=== PATIENT | female | born 1970 | race African-American/Black ===

== ENCOUNTER 2016-11-30 20:27 | Emergency (ER) | payer MEDICAID ==
[~2016-11-30] VITALS: Ht 160 cm; Wt 136.1 kg
[~2016-11-30 20:27] MED LIST: CIPROFLOXACIN500 M2 ORAL; CYCLOBENZAPRINE10 MG ORAL; IBUPROFEN600 MG ORAL; LISINOPRIL2.5 MG ORAL; NORCO 10/3251 EA ORAL; NORCO 5-325 TA1 EACH ORAL; NOVOLIN 70/305 UNIT1; SOMA350 MG PO; ZOFRAN4 MG ORAL
[2016-11-30] MEDS ORDERED: Ketorolac 60mg Inj IM ONE (21:15)
--- NOTE | 2016-11-30 21:18 | Emergency Room Report ---
History of Present Illness General Chief Complaint: Edema Source: Patient Present Illness HPI Patient is a 46-year-old female who presented after increased right hip pain as well as bilateral leg swelling. Patient had prior history of cardiac disease. Patient had prior history of chronic pain. She had been taking medications for diabetes. The patient stated that she had been having pain since her hip surgery greater than a year ago. She reported having gradual increase pain. Patient had reported bilateral leg swelling. She denied any shortness of breath. Allergies: Coded Allergies: PENICILLINS (Unverified Allergy, Unknown, 12/04/14) Patient History Past Medical History: see triage record Last Menstrual Period: Menopause Now: No Reviewed Nursing Documentation: PMH: Agreed, PSxH: Agreed Nursing Documentation-PMH Past Medical History: No History, Except For Hx Cardiac Problems: Yes Hx Hypertension: Yes Hx Diabetes: Yes Hx Cancer: Yes - cervix Hx Gastrointestinal Problems: Yes - Hysterectomy Hx Neurological Problems: No Review of Systems All Other Systems: negative except mentioned in HPI Physical Exam Vital Signs Date Time Temp Pulse Resp B/P Pulse Ox O2 Delivery O2 Flow Rate FiO2 11/30/16 20:42 98.2 105 16 139/103 99 Room Air General Appearance: well appearing, no apparent distress, alert, GCS 15 Head: normocephalic, atraumatic ENT: hearing grossly normal, normal voice Neck: full range of motion, supple Respiratory: no respiratory distress, speaking full sentences Cardiovascular #1: normal inspection, regular rate, rhythm, edema - trace edema Gastrointestinal: normal inspection, non tender, soft Musculoskeletal: normal inspection, no calf tenderness Neurologic: normal inspection, alert, oriented x3, responsive, normal gait Psychiatric: mood/affect normal Skin: no rash Medical Decision Making Diagnostic Impression: Primary Impression: Chronic pain Additional Impression: DM (diabetes mellitus) ER Course Patient presented for right hip pain. Differential diagnosis included was not limited to osteomyelitis loosening hardware, fracture among others. Patient's benign exam and does not appear to require any further imaging or laboratory testing at this time. The patient is afebrile. As the patient exacerbation of the patient's chronic pain. The patient does appear to have a component of neuropathy. Patient given gabapentin as well as Toradol for pain.The x-ray imaging of the right hip the 2 views interpreted by me showed normal alignment with a cyst of the right femur with hardware. Inferior screw appeared to be broken without displacement. The patient was advised followup with her orthopedic Dr. Patient is advised to return if she began having worsening pain fever or other concerns. Labs Test 11/30/16 21:10 Urine HCG, Qualitative Negative Last Vital Signs Date Time Temp Pulse Resp B/P Pulse Ox O2 Delivery O2 Flow Rate FiO2 11/30/16 20:42 98.2 105 16 139/103 99 Room Air Status: improved Disposition: HOME, SELF-CARE Condition: Stable Scripts Gabapentin* (GABAPENTIN*) 400 Mg Capsule 400 MG ORAL THREE TIMES A DAY, #30 CAP 0 Refills Prov: Luis Mcconnell 11/30/16 Luis Mcconnell Nov 30, 2016 21:18
[2016-11-30 21:30] VITALS: BP 132/96
[2016-11-30] MEDS ORDERED: GABAPENTIN400 MG ORAL (21:33)
[2016-11-30 22:20] VITALS: BP 132/96
--- NOTE | 2016-12-01 13:20 | Diagnostic Imaging Report ---
Indications: hip pain Findings: Two views of the right hip were obtained. There is a right dynamic hip screw present. The inferior most fixation screw is fractured. The acuity of this is unknown. There is no acute bony fracture identified. Impression: Age-indeterminate fracture of the inferior most femoral fixation screw for a dynamic hip screw.
== END 2016-11-30 22:20 | disposition home or self-care (01) ==
LOC: EMR 22:00
DX: G89.29 Other chronic pain (principal); E11.9 Type 2 diabetes mellitus without complications; M25.551 Pain in right hip; M79.89 Other specified soft tissue disorders; Z88.0 Allergy status to penicillin; Z86.79 Personal history of other diseases of the circulatory system; I10 Essential (primary) hypertension; Z85.41 Personal history of malignant neoplasm of cervix uteri; Z90.710 Acquired absence of both cervix and uterus
CPT/HCPCS: 81025; 96372; 99283

== ENCOUNTER 2017-05-18 09:54 | Emergency (ER) | payer MEDICAID ==
[~2017-05-18] VITALS: Ht 160 cm; Wt 90.7 kg
[~2017-05-18 09:54] MED LIST changes: +GABAPENTIN400 MG ORAL
[2017-05-18 10:11] VITALS: BP 162/112
--- NOTE | 2017-05-18 10:43 | Emergency Room Report ---
History of Present Illness General Chief Complaint: General Complaint Source: Patient, Medical Record Present Illness HPI 46-year-old female history of hypertension and diabetes, history of right hip surgery due to fracture, history of thyroidectomy presenting with left-sided hip pain and chest pain. Patient states that pain started yesterday, worse with movement, denies any trauma. Denies any falling. Denies reaching down to grab anything. Pain has been constant, worse with movement. Has not taken anything for the pain. Patient states that she has an orthopedic surgeon who is "not doing anything" for her. She has not seen another orthopedic surgeon. Patient also states that she has had one day of burning substernal chest pain, not worse with exertion. No palpitations. No shortness of breath nausea or vomiting. Has not had a stress test or angiogram. Pain is also worse with movement or twisting motion. No history of DVT PE, no history of recent surgery or immobilization. Allergies: Coded Allergies: PENICILLINS (Unverified Allergy, Unknown, 12/04/14) Patient History Past Medical History: see triage record Past Surgical History: none Pertinent Family History: none Last Menstrual Period: hysterectomy 4 yrs ago Reviewed Nursing Documentation: PMH: Agreed, PSxH: Agreed Nursing Documentation-PMH Past Medical History: No History, Except For Hx Cardiac Problems: Yes Hx Hypertension: Yes Hx Diabetes: Yes Hx Cancer: Yes - cervix Hx Gastrointestinal Problems: Yes - Hysterectomy Hx Neurological Problems: No Review of Systems All Other Systems: negative except mentioned in HPI Physical Exam Vital Signs Date Time Temp Pulse Resp B/P (MAP) Pulse Ox O2 Delivery O2 Flow Rate FiO2 05/18/17 10:05 97.9 93 18 109/69 99 Room Air Sp02 EP Interpretation: reviewed, normal General Appearance: alert, GCS 15, non-toxic, mild distress, obese Head: normocephalic, atraumatic Eyes: bilateral eye normal inspection, bilateral eye PERRL, bilateral eye EOMI ENT: normal ENT inspection, normal pharynx, normal voice, moist mucus membranes Neck: normal inspection, full range of motion, supple Respiratory: normal inspection, lungs clear, normal breath sounds, no respiratory distress, no retraction, no wheezing, speaking full sentences, chest symmetrical Cardiovascular #1: normal inspection, regular rate, rhythm, no edema, normal capillary refill, other - reproducible chest wall tenderness L hcest Cardiovascular #2: 2+ radial (R), 2+ radial (L) Gastrointestinal: normal inspection, non tender, soft, non-distended, no guarding Musculoskeletal: other - L hip tenderness, pain with passive L leg raise, able to ambulate withlimp, no leg shortening or rotation Neurologic: normal inspection, alert, oriented x3, responsive, motor strength/ tone normal, sensory intact, normal gait, speech normal Psychiatric: normal inspection, judgement/insight normal, memory normal Skin: normal inspection, normal color, no rash, warm/dry, well hydrated, normal turgor Medical Decision Making Diagnostic Impression: Primary Impression: Hip pain Additional Impression: Chest pain ER Course 46-year-old female presenting with left hip pain and chest pain DDX: Hip pain, secondary to osteoarthritis, at this time I am not very concerned with fracture or dislocation given the history, patient is also ambulating and bearing weight Chest pain likely musculoskeletal given that his reproducible, and patient is 46 however due to obesity, history of hypertension diabetes, will rule out ACS ACS vs. CHF vs. pneumonia vs. gastritis/GERD vs. pneumothorax PE on differential however at this time there are other more likely diagnoses. Plan: IV access, obtain labs including troponin, EKG, CXR ASA, pain control Hip x-rays ER course: Patient was treated with morphine. Patient given ASA. Patient remained chest pain free during ED stay. she has been nad, talking on phone, not c/o pain, ambulatory in the ED will dc home Disposition: Patient will be discharged to home. Strict precautions discussed with patient on when to emergently return to the ED : this includes worsening/severe chest pain, palpitations, shortness of breath, syncopal episodes, fever or chills, which may indicate severe illness. Patient verbalized understanding. Patient instructed to follow up with their PMD within the next 2 days. also instructed to follow up with orthopedic surgery in 1w [place] Patient also instructed to follow up with a press cleaner within 2 days for possible outpatient stress test. Patient agrees with plan. Please note that this Emergency Department Report was dictated using [employer] advisor technology software, occasionally this can lead to erroneous entry secondary to interpretation by the dictation equipment. EKG Diagnostic Results EP Interpretation: Yes Rate: normal Rhythm: NSR ST Segments: No acute changes ASA given to patient: yes Rhythm Strip EP Interpretation: Yes Rate: 85 Rhythm: NSR, no PVCs, no ectopy Chest X-ray CXR: Ordered: Yes 1 view Indication: Chest pain EP interpretation: Yes Interpretation: No consolidation, no effusion, no PTX, no acute cardiopulmonary disease Impression: No acute disease Electronically signed by Jesi Kelsey MD Xray: Pelvis One view Indication: Pain EP Interpretation: Yes Interpretation: Right-sided screw is noted in the femoral neck Impression: No acute disease Electronically signed by Jesi Kelsey MD Xray: Left hip 2 view Indication: Pain EP Interpretation: Yes Interpretation: No dislocation, no soft tissue swelling, no fractures Impression: No acute disease Electronically signed by Jesi Kelsey MD Laboratory Tests Test 05/18/17 11:17 White Blood Count 5.2 K/UL (4.8-10.8) Red Blood Count 5.18 M/UL (4.20-5.40) Hemoglobin 13.7 G/DL (12.0-16.0) Hematocrit 45.2 % (37.0-47.0) Mean Corpuscular Volume 87 FL (80-99) Mean Corpuscular Hemoglobin 26.3 PG (27.0-31.0) L Mean Corpuscular Hemoglobin Concent 30.2 G/DL (32.0-36.0) L Red Cell Distribution Width 13.2 % (11.6-14.8) Platelet Count 281 K/UL (150-450) Mean Platelet Volume 10.3 FL (6.5-10.1) H Neutrophils (%) (Auto) 56.5 % (45.0-75.0) Lymphocytes (%) (Auto) 32.8 % (20.0-45.0) Monocytes (%) (Auto) 7.1 % (1.0-10.0) Eosinophils (%) (Auto) 1.8 % (0.0-3.0) Basophils (%) (Auto) 1.8 % (0.0-2.0) Urine Color Pale yellow Urine Appearance Clear Urine pH 7 (4.5-8.0) Urine Specific [place] 1.010 (1.005-1.035) Urine Protein Negative (NEGATIVE) Urine Glucose (UA) 4+ (NEGATIVE) H Urine Ketones Negative (NEGATIVE) Urine Occult Blood Negative (NEGATIVE) Urine Nitrite Negative (NEGATIVE) Urine Bilirubin Negative (NEGATIVE) Urine Urobilinogen Normal MG/DL (0.0-1.0) Urine Leukocyte Esterase Negative (NEGATIVE) Urine HCG, Qualitative Negative Sodium Level 136 MMOL/L (136-145) Potassium Level 3.7 MMOL/L (3.5-5.1) Chloride Level 102 MMOL/L (98-107) Carbon Dioxide Level 27 MMOL/L (21-32) Anion Gap 7 mmol/L (5-15) Blood Urea Nitrogen 10 mg/dL (7-18) Creatinine 1.0 MG/DL (0.55-1.30) Estimate Glomerular Filtration Rate > 60 mL/min (>60) Glucose Level 351 MG/DL (74-106) H Calcium Level 8.7 MG/DL (8.5-10.1) Total Bilirubin 0.3 MG/DL (0.2-1.0) Aspartate Amino Transferase (AST) 11 U/L (15-37) L Alanine Aminotransferase (ALT) 20 U/L (12-78) Alkaline Phosphatase 73 U/L (46-116) Troponin I 0.000 ng/mL (0.000-0.056) Pro-B-Type Natriuretic Peptide 102 pg/mL (0-125) Total Protein 7.9 G/DL (6.4-8.2) Albumin 3.3 G/DL (3.4-5.0) L Globulin 4.6 g/dL Last Vital Signs Date Time Temp Pulse Resp B/P (MAP) Pulse Ox O2 Delivery O2 Flow Rate FiO2 05/18/17 10:05 97.9 93 18 109/69 99 Room Air Disposition: HOME, SELF-CARE Condition: Improved Scripts Oxycodone/Acetaminophen 5-325* (PERCOCET 5-325 MG TABLET*) 1 Each Tablet 1 TAB ORAL Q4H Y for For Pain, #15 TAB 0 Refills Prov: Jesi Kelsey M.D. 05/18/17 Jesi Kelsey M.D. May 18, 2017 10:43
[2017-05-18] MEDS: Morphine Sulfate 4mg/ml Inj IVP ONE (11:03)
[2017-05-18 11:32] LABS: BASOPHILS % (AUTO) 1.8 % (0.0-2.0); EOSINOPHILS % (AUTO) 1.8 % (0.0-3.0); LYMPHOCYTES % (AUTO) 32.8 % (20.0-45.0); MEAN CORPUSCULAR HEMOGLOBIN 26.3 PG (27.0-31.0); MEAN CORPUSCULAR HGB CONC 30.2 G/DL (32.0-36.0); MEAN CORPUSCULAR VOLUME 87 FL (80-99); MEAN PLATELET VOLUME 10.3 FL (6.5-10.1); MONOCYTES % (AUTO) 7.1 % (1.0-10.0); NEUTROPHILS % (AUTO) 56.5 % (45.0-75.0); PLATELET COUNT 281 K/UL (150-450); RED BLOOD COUNT 5.18 M/UL (4.20-5.40); RED CELL DISTRIBUTION WIDTH 13.2 % (11.6-14.8); WHITE BLOOD COUNT 5.2 K/UL (4.8-10.8)
[2017-05-18 11:33] LABS: KETONES,URINE NEGATIVE (NEGATIVE); LEUKOCYTE ESTERASE ,URINE NEGATIVE (NEGATIVE); NITRITE,URINE NEGATIVE (NEGATIVE); PH,URINE 7 (4.5-8.0); PROTEIN,URINE NEGATIVE (NEGATIVE); UROBILINOGEN,URINE NORMAL MG/DL (0.0-1.0)
[2017-05-18 11:35] LABS: APPEARANCE,URINE CLEAR
[2017-05-18 11:47] LABS: ANION GAP 7 mmol/L (5-15); CALCIUM 8.7 MG/DL (8.5-10.1); CARBON DIOXIDE 27 MMOL/L (21-32); CHLORIDE 102 MMOL/L (98-107); GLOMERULAR FILTRATION RATE > 60 mL/min (>60); POTASSIUM 3.7 MMOL/L (3.5-5.1); SODIUM 136 MMOL/L (136-145)
[2017-05-18 12:05] LABS: ALANINE AMINOTRANSFERASE 20 U/L (12-78); ASPARTATE AMINO TRANSFERASE 11 U/L (15-37); TOTAL PROTEIN 7.9 G/DL (6.4-8.2)
[2017-05-18 12:06] LABS: ALBUMIN/GLOBULIN RATIO 0.7 (1.0-2.7)
[2017-05-18] MEDS ORDERED: PERCOCET 5-3251 EACH ORAL (12:10)
[2017-05-18 12:16] VITALS: BP 162/112
--- NOTE | 2017-05-18 15:05 | Diagnostic Imaging Report ---
Indication: Chest pain Technique: One view of the chest Comparison: 08/28/2015 Findings: Lungs and pleural spaces are clear. Heart size is normal. Evidence of prior CABG. No significant change Impression: No acute process
--- NOTE | 2017-05-18 15:18 | Diagnostic Imaging Report ---
Indication: PAIN Technique: One view of the pelvis Comparison: Right hip radiograph 11/30/2016 Findings: There is right hip hardware again demonstrated. No definite acute fractures. No dislocations. Joint spaces are preserved. Soft tissues are unremarkable Impression: No acute process. Findings as noted
--- NOTE | 2017-05-18 15:24 | Diagnostic Imaging Report ---
Indication: PAIN Technique: 2 views of the left hip Comparison: None Findings: There is mild subchondral sclerosis on the acetabular side of the left hip joint. There is mild degenerative proliferative change. No acute fractures. No dislocations. Impression: Mild degenerative change. No acute bony trauma
--- NOTE | 2017-05-22 15:00 | Cardiology Report ---
APPROVED REPORT EKG Measurement Heart [id number] Normal sinus rhythm Normal ECG
== END 2017-05-18 12:39 | disposition home or self-care (01) ==
LOC: EMR 10:40
DX: M25.552 Pain in left hip (principal); R07.9 Chest pain, unspecified; I10 Essential (primary) hypertension; E11.9 Type 2 diabetes mellitus without complications; Z88.0 Allergy status to penicillin; Z85.41 Personal history of malignant neoplasm of cervix uteri; Z90.710 Acquired absence of both cervix and uterus
CPT/HCPCS: 36415; 71010; 72170; 73502; 80053; 81003; 81025; 83880; 84484; 85025; 93005; 96374; 99284; J2270

== ENCOUNTER 2018-06-10 19:16 | Emergency (ER) | payer SELFPAY ==
[~2018-06-10] VITALS: Ht 160 cm; Wt 98.0 kg
[~2018-06-10 19:16] MED LIST changes: +PERCOCET 5-3251 EACH ORAL
[2018-06-10 19:30] VITALS: BP 156/99
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
[2018-06-10] MEDS ORDERED: Acetaminophen 500mg (ES) tab ORAL ONE (19:45)
[2018-06-10] MEDS ORDERED: Methocarbamol 500mg tab ORAL ONE (19:45)
[2018-06-10] MEDS ORDERED: LIDOCAINE700 M1 TP (20:05)
[2018-06-10] MEDS ORDERED: ROBAXIN500 MG PO (20:05)
[2018-06-10] MEDS ORDERED: TYLENOL EXTRA500 MG ORAL (20:05)
[2018-06-10 20:24] VITALS: BP 152/92
--- NOTE | 2018-06-11 11:10 | Diagnostic Imaging Report ---
Indication: Neck Pain Findings: 3 views of the cervical spine were obtained. The bones are osteopenic no malalignment or fracture identified. Sternotomy noted. Intervertebral disc heights and vertebral body height and configuration appears normal. There is no soft tissue swelling identified. Mild calcification of the anterior margin of the C6-7 disc noted. IMPRESSION: No acute injury appreciated
--- NOTE | 2018-06-11 11:11 | Diagnostic Imaging Report ---
Indication: left shoulder pain Findings: 3 views of the left shoulder were obtained. Alignment of the left shoulder is normal. No acute fracture is identified. Bones are osteopenic. Soft tissues are unremarkable. Impression: No acute injury
== END 2018-06-10 20:25 | disposition home or self-care (01) ==
LOC: EMR 19:48
DX: S13.9XXA Sprain of joints and ligaments of unspecified parts of neck, initial encounter (principal); M25.512 Pain in left shoulder; E11.9 Type 2 diabetes mellitus without complications; I10 Essential (primary) hypertension; Z90.710 Acquired absence of both cervix and uterus; Z85.41 Personal history of malignant neoplasm of cervix uteri; Z88.0 Allergy status to penicillin; V43.52XA Car driver injured in collision with other type car in traffic accident, initial encounter; Y92.9 Unspecified place or not applicable
CPT/HCPCS: 72040; 99284

== ENCOUNTER 2018-10-10 14:03 | Emergency (ER) | payer OTHER ==
[~2018-10-10] VITALS: Ht 160 cm; Wt 93.0 kg
[~2018-10-10 14:03] MED LIST changes: +LIDOCAINE700 M1 TP; +ROBAXIN500 MG PO; +TYLENOL EXTRA500 MG ORAL
--- NOTE | 2018-10-10 14:31 | NUR ---
ED Nurse Note: PT WALKED IN TO ER TODAY FROM HOME. AOX4. PT C/O RIGHT HIP PAIN AND UPPER ABDOMINAL PAIN, 10 X 2 DAYS AGO. PT DENIES INJURY OR TRAUMA TO RIGHT LOWER EXTREMITY. CIRCULATION AND SENSATION INTACT, CAP REFILL <3 SECONDS, MUSCLE STRENGTH 5/5 AND FULL ROM OF EXTREMITY. PT DENIES NAUSEA, VOMITING, OR DIARRHEA BUT STATES SHE IS S/P GASTRIC SLEEVE 08/12/18.
[2018-10-10 14:32] VITALS: BP 122/86
--- NOTE | 2018-10-10 14:42 | Emergency Room Report ---
History of Present Illness General Chief Complaint: Generalized Weakness Source: Patient Present Illness HPI Patient is a 47-year-old female presented after increased generalized weakness. Patient reportedly had a gastric sleeve performed approximately 2 months ago in [place]. She reports of increased generalized abdominal pain as well as increased greasy stools. She reports having increased epigastric pain as well as right hip pain. She had previously been on medication for diabetes but had not been taking any since the surgery. She denies any vomiting. She reports having some burning sensation to her chest as well as upper abdominal pain which is crampy in nature. She denies any black or bloody stools. She denies any exacerbating or alleviating factors. She states she had a follow-up appointment but is unable to was unable to return to [place] for her follow- up. Allergies: Coded Allergies: PENICILLINS (Unverified Allergy, Unknown, 12/04/14) Patient History Past Medical History: see triage record Last Menstrual Period: >5yrs Now: No Reviewed Nursing Documentation: PMH: Agreed; PSxH: Agreed Nursing Documentation-PMH Past Medical History: No History, Except For Hx Cardiac Problems: Yes Hx Hypertension: Yes Hx Diabetes: Yes Hx Cancer: Yes - cervix Hx Gastrointestinal Problems: Yes - Hysterectomy, gastric sleeve Hx Neurological Problems: No Review of Systems All Other Systems: negative except mentioned in HPI Physical Exam Vital Signs Date Time Temp Pulse Resp B/P (MAP) Pulse Ox O2 Delivery O2 Flow Rate FiO2 10/10/18 14:11 98.2 109 20 125/94 97 Room Air Sp02 EP Interpretation: reviewed, normal General Appearance: normal inspection, well appearing, no apparent distress, alert, GCS 15, non-toxic Head: atraumatic ENT: normal ENT inspection, hearing grossly normal, normal voice Neck: normal inspection, full range of motion, supple, no bony tend Respiratory: normal inspection, lungs clear, normal breath sounds, no respiratory distress, no retraction, no wheezing Cardiovascular #1: regular rate, rhythm, no edema Gastrointestinal: normal inspection, normal bowel sounds, non tender, soft, no guarding, no hernia Genitourinary: no CVA tenderness Musculoskeletal: normal inspection, back normal, normal range of motion Neurologic: normal inspection, alert, oriented x3, responsive, regulatory law specialist III-XII nml as tested, speech normal Psychiatric: normal inspection, judgement/insight normal, mood/affect normal Skin: normal inspection, normal color, no rash Medical Decision Making Diagnostic Impression: Primary Impression: Hyperglycemia Additional Impression: UTI (lower urinary tract infection) ER Course Patient presented for abdominal pain. Differential diagnoses included ischemic bowel, appendicitis, perforated viscus, abdominal aortic aneurysm, inferior myocardial infarction, viral gastroenteritis among others. Because of complexity of patient's case laboratory testing and imaging studies were ordered. Patient was noted to have increased generalized weakness and had prior history of diabetes. She was noted to have generalized weakness and not be on any medications currently.Patient was noted to have degenerative changes on previous x-rays of her right hip and does not appear to require any current imaging at this time.Patient was given medications for blood sugar. Patient appears to be adequately hydrated and does not show any evidence of sepsis and is stable for outpatient management. Labs Test 10/10/18 14:45 10/10/18 15:50 White Blood Count 5.7 K/UL (4.8-10.8) Red Blood Count 5.11 M/UL (4.20-5.40) Hemoglobin 13.5 G/DL (12.0-16.0) Hematocrit 42.7 % (37.0-47.0) Mean Corpuscular Volume 84 FL (80-99) Mean Corpuscular Hemoglobin 26.3 PG (27.0-31.0) Mean Corpuscular Hemoglobin Concent 31.5 G/DL (32.0-36.0) Red Cell Distribution Width 13.4 % (11.6-14.8) Platelet Count 290 K/UL (150-450) Mean Platelet Volume 9.3 FL (6.5-10.1) Neutrophils (%) (Auto) 58.6 % (45.0-75.0) Lymphocytes (%) (Auto) 30.6 % (20.0-45.0) Monocytes (%) (Auto) 7.6 % (1.0-10.0) Eosinophils (%) (Auto) 2.0 % (0.0-3.0) Basophils (%) (Auto) 1.2 % (0.0-2.0) Prothrombin Time 10.1 SEC (9.30-11.50) Prothromb Time International Ratio 1.0 (0.9-1.1) Activated Partial Thromboplast Time 26 SEC (23-33) Sodium Level 139 MMOL/L (136-145) Potassium Level 3.7 MMOL/L (3.5-5.1) Chloride Level 102 MMOL/L (98-107) Carbon Dioxide Level 29 MMOL/L (21-32) Anion Gap 8 mmol/L (5-15) Blood Urea Nitrogen 14 mg/dL (7-18) Creatinine 1.0 MG/DL (0.55-1.30) Estimat Glomerular Filtration Rate > 60 mL/min (>60) Glucose Level 311 MG/DL (74-106) Calcium Level 8.5 MG/DL (8.5-10.1) Total Bilirubin 0.3 MG/DL (0.2-1.0) Aspartate Amino Transf (AST/SGOT) 13 U/L (15-37) Alanine Aminotransferase (ALT/SGPT) 21 U/L (12-78) Alkaline Phosphatase 77 U/L (46-116) Total Protein 7.3 G/DL (6.4-8.2) Albumin 3.1 G/DL (3.4-5.0) Globulin 4.2 g/dL Albumin/Globulin Ratio 0.7 (1.0-2.7) Lipase 162 U/L (73-393) Urine Color Pale yellow Urine Appearance Slightly cloudy Urine pH 5 (4.5-8.0) Urine Specific [place] 1.020 (1.005-1.035) Urine Protein Negative (NEGATIVE) Urine Glucose (UA) 4+ (NEGATIVE) Urine Ketones 2+ (NEGATIVE) Urine Blood Negative (NEGATIVE) Urine Nitrite Negative (NEGATIVE) Urine Bilirubin Negative (NEGATIVE) Urine Urobilinogen Normal MG/DL (0.0-1.0) Urine Leukocyte Esterase 2+ (NEGATIVE) Urine RBC 5-10 /HPF (0 - 2) Urine WBC 10-15 /HPF (0 - 2) Urine Squamous Epithelial Cells Moderate /LPF (NONE/OCC) Urine Bacteria Moderate /HPF (NONE) Urine Trichomonas Occasional /HPF (NONE) EKG Diagnostic Results Rate: normal - 97 Rhythm: NSR ST Segments: no acute changes Last Vital Signs Date Time Temp Pulse Resp B/P (MAP) Pulse Ox O2 Delivery O2 Flow Rate FiO2 10/10/18 14:32 96 18 Room Air 10/10/18 14:32 98.4 122/86 98 Status: improved Disposition: HOME, SELF-CARE Condition: Stable Scripts Nitrofurantoin Monohyd/M-Cryst* (MACROBID 100 MG*) 100 Mg Capsule 100 MG ORAL EVERY 12 HOURS, #14 CAP Prov: Luis Mcconnell MD 10/10/18 Lidocaine (Lidocaine) 1 Each Adh..patch 5 % TP DAILY, #30 PATCH Prov: Luis Mcconnell MD 10/10/18 Metformin Hcl* (METFORMIN HCL*) 500 Mg Tablet 500 MG ORAL TWICE A DAY, #60 TAB Prov: Luis Mcconnell MD 10/10/18 Referrals: [facility],REFERRING (PCP) Luis Mcconnell MD Oct 10, 2018 14:42
[2018-10-10] MEDS ORDERED: Mylanta II UD 30ml ORAL ONE (14:45)
[2018-10-10] MEDS ORDERED: Lidocaine 2% Visc 15ml soln ORAL ONE (14:45)
[2018-10-10] MEDS ORDERED: Dicyclomine HCl 10mg/5ml oral soln ORAL ONE (14:45)
[2018-10-10 14:59] LABS: BASOPHILS % (AUTO) 1.2 % (0.0-2.0); HEMATOCRIT 42.7 % (37.0-47.0); HEMOGLOBIN 13.5 G/DL (12.0-16.0); LYMPHOCYTES % (AUTO) 30.6 % (20.0-45.0); MEAN CORPUSCULAR VOLUME 84 FL (80-99); MONOCYTES % (AUTO) 7.6 % (1.0-10.0); NEUTROPHILS % (AUTO) 58.6 % (45.0-75.0); PLATELET COUNT 290 K/UL (150-450); RED BLOOD COUNT 5.11 M/UL (4.20-5.40); RED CELL DISTRIBUTION WIDTH 13.4 % (11.6-14.8); WHITE BLOOD COUNT 5.7 K/UL (4.8-10.8)
--- NOTE | 2018-10-10 15:07 | NUR ---
ED Nurse Note: PT INFORMED THAT URINE SAMPLE IS NEEDED. PT STATES SHE CAN'T PROVIDE A SAMPLE RIGHT NOW AND REFUSES STRAIGHT CATHETER. DR. PANG AWARE.
[2018-10-10 15:26] LABS: ANION GAP 8 mmol/L (5-15); BLOOD UREA NITROGEN 14 mg/dL (7-18); CALCIUM 8.5 MG/DL (8.5-10.1); CARBON DIOXIDE 29 MMOL/L (21-32); CHLORIDE 102 MMOL/L (98-107); POTASSIUM 3.7 MMOL/L (3.5-5.1); SODIUM 139 MMOL/L (136-145)
[2018-10-10 15:31] LABS: ALANINE AMINOTRANSFERASE 21 U/L (12-78); ALBUMIN 3.1 G/DL (3.4-5.0); ALBUMIN/GLOBULIN RATIO 0.7 (1.0-2.7); ALKALINE PHOSPHATASE 77 U/L (46-116); ASPARTATE AMINO TRANSFERASE 13 U/L (15-37); BILIRUBIN,TOTAL 0.3 MG/DL (0.2-1.0)
--- NOTE | 2018-10-10 15:41 | NUR ---
ED Nurse Note: PT AMBULATED TO RESTROOM WITH STEADY GAIT. URINE SAMPLE PROVIDED AND SENT TO LAB.
[2018-10-10] MEDS ORDERED: metFORMIN 500mg tab ORAL ONE (16:00)
[2018-10-10] MEDS ORDERED: NKM (16:06)
[2018-10-10 16:46] LABS: APPEARANCE,URINE SLIGHTLY CLOUDY; BILIRUBIN, URINE NEGATIVE (NEGATIVE); COLOR,URINE PALE YELLOW; GLUCOSE, URINE (UA) 4+ (NEGATIVE); KETONES,URINE 2+ (NEGATIVE); LEUKOCYTE ESTERASE ,URINE 2+ (NEGATIVE); NITRITE,URINE NEGATIVE (NEGATIVE); PH,URINE 5 (4.5-8.0); PROTEIN,URINE NEGATIVE (NEGATIVE); UROBILINOGEN,URINE NORMAL MG/DL (0.0-1.0)
[2018-10-10] MEDS ORDERED: LIDOCAINE700 M1 TP (17:05)
[2018-10-10] MEDS ORDERED: METFORMIN HCL500 M1 ORAL (17:05)
[2018-10-10] MEDS ORDERED: NITROFURANTOIN100 M2 ORAL (17:05)
--- NOTE | 2018-10-10 17:13 | NUR ---
ED Nurse Note: PT AOX4 AND STATES SHE IS HOMELESS. MINICOG COMPLETED. PT PROVIDED WITH FOOD, JUICE, AND WATER. PT DRESSED IN WEATHER APPROPRIATE CLOTHING. PT EDUCATED ON RESOURCES AVAILABLE REGARDING SHELTERS AND FREE HEALTH CLINICS. ALL RESOURCES GIVEN TO PT. PT VERBALIZES THAT SHE WILL LOOK INTO AVAILABLE RESOURCES. PT STATES SHE LIVES OUT OF HER CAR AND DOES NOT REQUIRE ASSISTANCE WITH PLACEMENT AT THIS TIME.
[2018-10-10 17:26] VITALS: BP 120/82
--- NOTE | 2018-10-10 17:38 | Diagnostic Imaging Report ---
Indication: Abdominal pain Technique: Arce-scale and duplex images of the upper abdomen were obtained there are Doppler interrogation of the hepatic and pancreatic vessels Comparison: No comparison sonograms. Reference made to abdomen pelvis CT dated 06/04/2015 Findings: Gallbladder is unremarkable, without stones, wall thickening, nor pericholecystic fluid. Sonographic Borden's sign is negative. Common bile duct measures 3 mm in diameter. No intrahepatic biliary ductal dilatation. Liver demonstrates normal echogenicity, no focal abnormality. It is mildly enlarged. Portal vein and hepatic veins are patent. Pancreas is unremarkable. Spleen is unremarkable. Left kidney measures 11.3 cm in length. Right kidney measures 11.9 cm length. Both kidneys demonstrate normal echogenicity. There is no hydronephrosis. A cyst is seen in the right kidney . Non-aneurysmal abdominal aorta . Impression: Negative for gallstones or dilated bile ducts Mild hepatomegaly Incidental finding right renal cyst
--- NOTE | 2018-10-10 17:44 | NUR ---
ED Nurse Note: PT LAYING PEACEFULLY IN BED IN NAD. AOX4. PRESCRIPTIONS AND DISCHARGE PAPERWORK EXPLAINED TO PT. PT VERBALIZES UNDERSTANDING AND ALL QUESTIONS ANSWERED. MEDICATIONS PROVIDED FOR PT FROM [facility] AND GIVEN TO PT ALONG WITH DISCHARGE PAPERWORK. IV AND ID WRISTBAND REMOVED. PT VERBALIZES ONCE AGAIN THAT SHE WILL LOOK INTO FREE CLINIC RESOURCES GIVEN TO HER BY RN [facility] REGARDING PENITENTIARY INFORMATION. PT OFFERED ASSISTANCE ONCE AGAIN WITH PLACEMENT BUT STATES THAT NO HELP IS NECESSARY AT THIS TIME. PT WALKED OUT OF ER WITH STEADY GAIT AND ALL BELONGINGS.
--- NOTE | 2018-10-11 17:28 | Cardiology Report ---
APPROVED REPORT EKG Measurement Heart [id number] [id number] Normal sinus rhythm Possible Left atrial enlargement Prolonged QT Abnormal ECG
== END 2018-10-10 17:44 | disposition home or self-care (01) ==
LOC: EMR 14:27
DX: E11.65 Type 2 diabetes mellitus with hyperglycemia (principal); N39.0 Urinary tract infection, site not specified; R53.1 Weakness; I10 Essential (primary) hypertension; E11.9 Type 2 diabetes mellitus without complications; Z85.41 Personal history of malignant neoplasm of cervix uteri; Z90.710 Acquired absence of both cervix and uterus; Z88.0 Allergy status to penicillin
CPT/HCPCS: 36415; 76700; 80053; 81003; 82962; 83690; 85025; 85610; 85730; 87086; 93005; 96361; 96374; 96375; 99284; J2405; S0028

== ENCOUNTER 2019-02-24 21:40 | Emergency (ER) | payer OTHER ==
[~2019-02-24] VITALS: Ht 160 cm; Wt 88.0 kg
[~2019-02-24 21:40] MED LIST changes: +METFORMIN HCL500 M1 ORAL; +NITROFURANTOIN100 M2 ORAL; +NKM
[2019-02-24 23:05] VITALS: BP 159/112
--- NOTE | 2019-02-24 23:05 | NUR ---
ED Nurse Note: Patient walked in to ER due to lac on L foot, c/o bilateral swollen feet x1day. AAO x4, VSS at this time.
[2019-02-24] MEDS ORDERED: CLINDAMYCIN HC300 MG ORAL (23:15)
[2019-02-24] MEDS ORDERED: Neosporin Oint Ud Pkt TOPIC ONE (23:15)
[2019-02-24] MEDS ORDERED: IBUPROFEN600 MG ORAL (23:15)
[2019-02-24] MEDS ORDERED: HYDROcodone/Acetamin 5/325 tab ORAL ONE (23:15)
[2019-02-24] MEDS ORDERED: Clindamycin 150mg cap ORAL ONE (23:15)
--- NOTE | 2019-02-24 23:15 | Emergency Room Report ---
History of Present Illness General Chief Complaint: Pain Source: Patient Present Illness HPI This is a 48-year-old female with history of diabetes. She presents with chief complaint of laceration to the left foot. She is walking barefoot and cut it on the riser of the carpet last night. Now with tenderness to the foot and some edema. Tetanus was 2 years ago. It is 8 out of 10. No nausea no vomiting. No fever chills. No redness. Allergies: Coded Allergies: PENICILLINS (Unverified Allergy, Unknown, 12/04/14) Patient History Past Medical History: see triage record, old chart reviewed, DM Past Surgical History: none Pertinent Family History: none Social History: Denies: smoking Last Menstrual Period: 6yrs Now: No Immunizations: UTD Reviewed Nursing Documentation: PMH: Agreed; PSxH: Agreed Nursing Documentation-PMH Past Medical History: No History, Except For Hx Cardiac Problems: Yes Hx Hypertension: Yes Hx Diabetes: Yes Hx Cancer: Yes - cervix Hx Gastrointestinal Problems: Yes - Hysterectomy, gastric sleeve Hx Neurological Problems: No Review of Systems Eye: Denies: eye pain, blurred vision ENT: Denies: ear pain, nose congestion, throat swelling Respiratory: Denies: cough, shortness of breath Cardiovascular: Denies: chest pain, palpitations Gastrointestinal: Denies: abdominal pain, diarrhea, nausea, vomiting Musculoskeletal: Denies: back pain, joint pain Skin: Denies: rash Neurological: Denies: headache, numbness Endocrine: Denies: increased thirst, increased urine Hematologic/Lymphatic: Denies: easy bruising All Other Systems: negative except mentioned in HPI Physical Exam Vital Signs Date Time Temp Pulse Resp B/P (MAP) Pulse Ox O2 Delivery O2 Flow Rate FiO2 02/24/19 22:54 98.1 92 18 159/112 (128) 96 Room Air vitals with high blood pressure Sp02 EP Interpretation: reviewed, normal General Appearance: well appearing, no apparent distress, alert Head: normocephalic, atraumatic Eyes: bilateral eye PERRL, bilateral eye EOMI ENT: hearing grossly normal, normal pharynx Neck: full range of motion, supple, no meningismus Respiratory: chest non-tender, lungs clear, normal breath sounds Cardiovascular #1: regular rate, rhythm, no murmur Gastrointestinal: normal bowel sounds, non tender, no mass, no organomegaly, no bruit, non-distended Musculoskeletal: back normal, gait/station normal, normal range of motion, other - Left foot: There is skin avulsion on the sole of the foot at the ball of the fifth toe. Tenderness to palpation. No redness. No foreign body. Psychiatric: mood/affect normal Medical Decision Making Diagnostic Impression: Primary Impression: Puncture wound of foot, left Qualified Codes: S91.332A - Puncture wound without foreign body, left foot, initial encounter Additional Impression: HTN (hypertension) Qualified Codes: I10 - Essential (primary) hypertension Last Vital Signs Date Time Temp Pulse Resp B/P (MAP) Pulse Ox O2 Delivery O2 Flow Rate FiO2 02/24/19 22:54 98.1 92 18 159/112 (128) 96 Room Air Status: improved Disposition: HOME, SELF-CARE Condition: Stable Scripts Ibuprofen* (MOTRIN*) 600 Mg Tablet 600 MG ORAL THREE TIMES A DAY, #30 TAB 0 Refills Prov: Nathen Hale MD 02/24/19 Clindamycin Hcl (CLINDAMYCIN HCL) 300 Mg Capsule 300 MG ORAL THREE TIMES A DAY, #21 CAP Prov: Nathen Hale MD 02/24/19 Additional Instructions: Keep wound clean. Follow-up with your doctor in 7 days for recheck. Return if worse. Take your blood pressure medication. Nathen Hale MD Feb 24, 2019 23:15
[2019-02-24 23:35] VITALS: BP 159/112
--- NOTE | 2019-02-24 23:35 | NUR ---
ED Nurse Note: Pt cleared by health care Provider for discharge. DC instructions/prescription was given and explained to pt and verbalized understanding of teachings. All medical deviecs such as ID band removed. Pt is AAO x4, ambulatory and left with all personal belongings.
== END 2019-02-24 23:35 | disposition home or self-care (01) ==
LOC: EMR 23:11
DX: S91.332A Puncture wound without foreign body, left foot, initial encounter (principal); E11.9 Type 2 diabetes mellitus without complications; I10 Essential (primary) hypertension; Z88.0 Allergy status to penicillin; Z90.710 Acquired absence of both cervix and uterus; Z85.41 Personal history of malignant neoplasm of cervix uteri; Z98.84 Bariatric surgery status; W22.09XA Striking against other stationary object, initial encounter; Y93.01 Activity, walking, marching and hiking; Y92.9 Unspecified place or not applicable
CPT/HCPCS: 99282

== ENCOUNTER 2019-05-22 05:46 | Emergency (ER) | payer OTHER ==
[~2019-05-22] VITALS: Ht 160 cm; Wt 86.2 kg
[~2019-05-22 05:46] MED LIST changes: +CLINDAMYCIN HC300 MG ORAL
[2019-05-22 06:11] VITALS: BP 127/92
--- NOTE | 2019-05-22 06:12 | NUR ---
ED Nurse Note: Patient walked in to ER due to right shoulder pain and numbness. States has this problem over the month. AAO x4, VSS at thios time, skin is warm to touch.
--- NOTE | 2019-05-22 06:28 | Emergency Room Report ---
History of Present Illness General Chief Complaint: Upper Extremity Injury Source: Patient Present Illness HPI Patient is a 48-year-old female presents after increased right-sided shoulder pain. Patient had long-standing problems with her right shoulder. She reports having onset several Weeks ago. Patient is right-hand dominant. She reports having pain worse with movement. She had prior surgeries in the past which included partial lung resection. Denies any extremity numbness. Pain is worse with movement. She denies any other locations of pain. Patient has not been taking anti-inflammatory medications as she states these irritate her stomach. She denies any smoking history.Patient denies any fever.Denies any weakness. Pain is worse with elevation of the arm. Pain is aching in nature. Allergies: Coded Allergies: PENICILLINS (Unverified Allergy, Unknown, 12/04/14) Patient History Last Menstrual Period: 2012 Now: No : 10 Para: 6 Reviewed Nursing Documentation: PMH: Agreed; PSxH: Agreed Nursing Documentation-PMH Hx Cardiac Problems: Yes Hx Hypertension: Yes Hx Asthma: Yes Hx Diabetes: Yes Hx Cancer: Yes - cervical Hx Gastrointestinal Problems: Yes - gastric sleave Hx Neurological Problems: No Review of Systems All Other Systems: negative except mentioned in HPI Physical Exam Vital Signs Date Time Temp Pulse Resp B/P (MAP) Pulse Ox O2 Delivery O2 Flow Rate FiO2 05/22/19 05:58 97.5 116 18 127/92 (104) 98 Room Air General Appearance: well appearing, no apparent distress, alert, GCS 15 Head: normocephalic, atraumatic ENT: hearing grossly normal, normal voice Neck: full range of motion, supple Respiratory: normal inspection, no respiratory distress, speaking full sentences Cardiovascular #1: normal inspection Gastrointestinal: normal inspection Musculoskeletal: normal inspection Neurologic: normal inspection, alert, oriented x3, responsive, printed circuit boards beveler III-XII nml as tested, motor strength/tone normal, DTRs symmetric, normal gait Psychiatric: normal inspection, mood/affect normal Skin: no rash Medical Decision Making Diagnostic Impression: Primary Impression: Chronic pain Additional Impression: Shoulder arthralgia ER Course Patient presented for right-sided shoulder pain. Differential diagnosis include was not limited to fracture, contusion, muscle strain, arthritis among others. Patient does not show any evidence of acute toxicity. Patient appears to be stable for outpatient management. She is advised to follow-up with primary care physician for orthopedic referral and further evaluation of shoulder arthritis and possible referral to physical therapy.Patient was returned advised to return if worse. She does not appear to be in any acute distress. There is no evidence of vascular compromise. The patient is advised to follow up with primary care doctor in 1-2 days. Patient is advised to return if any worsening condition or if any changes in status that are concerning. This report is dictated with Cardiovascular [employer] clay dry press mixer operator software which may occasionally lead to discrepancies related to use of this software. Last Vital Signs Date Time Temp Pulse Resp B/P (MAP) Pulse Ox O2 Delivery O2 Flow Rate FiO2 05/22/19 06:11 97.5 18 127/92 98 Room Air 05/22/19 05:58 116 Status: improved Disposition: HOME, SELF-CARE Condition: Stable Scripts Acetaminophen* (ACETAMINOPHEN EXTRA STRENGTH*) 500 Mg Tablet 500 MG ORAL Q8H PRN for Fever/Headache/Mild Pain, #30 TAB Prov: Luis Mcconnell MD 05/22/19 Diclofenac Sodium (VOLTAREN) 100 Gm Gel..gram. 5 GM TP DAILY for pain, #100 GM Prov: Luis Mcconnell MD 05/22/19 Luis Mcconnell MD May 22, 2019 06:28
[2019-05-22] MEDS ORDERED: Acetaminophen 500mg (ES) tab ORAL ONE (06:30)
[2019-05-22] MEDS ORDERED: ACETAMINOPHEN500 M3 ORAL (06:31)
[2019-05-22] MEDS ORDERED: VOLTAREN100 G1 TP (06:31)
[2019-05-22 06:42] VITALS: BP 127/92
== END 2019-05-22 06:43 | disposition home or self-care (01) ==
LOC: EMR 06:23
DX: G89.29 Other chronic pain (principal); M25.511 Pain in right shoulder; I10 Essential (primary) hypertension; J45.909 Unspecified asthma, uncomplicated; E11.9 Type 2 diabetes mellitus without complications; Z85.41 Personal history of malignant neoplasm of cervix uteri; Z98.84 Bariatric surgery status
CPT/HCPCS: 99282

== ENCOUNTER 2019-05-31 19:31 | Emergency (ER) | payer OTHER ==
[~2019-05-31] VITALS: Ht 160 cm; Wt 86.2 kg
[~2019-05-31 19:31] MED LIST changes: +ACETAMINOPHEN500 M3 ORAL; +VOLTAREN100 G1 TP
[2019-05-31 20:00] VITALS: BP 153/103
[2019-05-31] MEDS ORDERED: Omnipaque-300 100ml vial INJ PRN (20:00)
[2019-05-31] MEDS ORDERED: Morphine Sulfate 4mg/ml Inj (IV USE ONLY) IVP ONE (20:00)
[2019-05-31 20:07] LABS: APPEARANCE,URINE CLEAR; BILIRUBIN, URINE NEGATIVE (NEGATIVE); COLOR,URINE PALE YELLOW; GLUCOSE, URINE (UA) 4+ (NEGATIVE); KETONES,URINE 1+ (NEGATIVE); LEUKOCYTE ESTERASE ,URINE NEGATIVE (NEGATIVE); NITRITE,URINE NEGATIVE (NEGATIVE); PH,URINE 8 (4.5-8.0); PROTEIN,URINE 2+ (NEGATIVE); UROBILINOGEN,URINE 1 MG/DL (0.0-1.0)
[2019-05-31 20:20] LABS: BASOPHILS % (AUTO) 1.5 % (0.0-2.0); EOSINOPHILS % (AUTO) 0.2 % (0.0-3.0); HEMATOCRIT 44.9 % (37.0-47.0); LYMPHOCYTES % (AUTO) 13.9 % (20.0-45.0); MEAN CORPUSCULAR VOLUME 81 FL (80-99); MONOCYTES % (AUTO) 4.9 % (1.0-10.0); NEUTROPHILS % (AUTO) 79.5 % (45.0-75.0); PLATELET COUNT 256 K/UL (150-450); RED BLOOD COUNT 5.54 M/UL (4.20-5.40); RED CELL DISTRIBUTION WIDTH 10.8 % (11.6-14.8); WHITE BLOOD COUNT 6.2 K/UL (4.8-10.8)
[2019-05-31 20:29] LABS: ANION GAP 6 mmol/L (5-15); BLOOD UREA NITROGEN 11 mg/dL (7-18); CALCIUM 8.2 MG/DL (8.5-10.1); CARBON DIOXIDE 33 MMOL/L (21-32); CHLORIDE 99 MMOL/L (98-107); CREATININE 1.1 MG/DL (0.55-1.30); POTASSIUM 3.6 MMOL/L (3.5-5.1); SODIUM 138 MMOL/L (136-145)
[2019-05-31 20:33] LABS: ALANINE AMINOTRANSFERASE 29 U/L (12-78); ALBUMIN 3.6 G/DL (3.4-5.0); ALBUMIN/GLOBULIN RATIO 0.8 (1.0-2.7); ALKALINE PHOSPHATASE 71 U/L (46-116); ASPARTATE AMINO TRANSFERASE 16 U/L (15-37); BILIRUBIN,TOTAL 0.4 MG/DL (0.2-1.0)
--- NOTE | 2019-05-31 21:33 | Diagnostic Imaging Report ---
EXAM: CT Abdomen and Pelvis With Intravenous Contrast CLINICAL HISTORY: ABD PAIN TECHNIQUE: Axial computed tomography images of the abdomen and pelvis with intravenous contrast. CTDI is 26 mGy and DLP is 1538 mGy-cm. One or more of the following dose reduction techniques were used: automated exposure control, adjustment of the mA and/or kV according to patient size, use of iterative reconstruction technique. Coronal and sagittal reformatted images were created and reviewed. COMPARISON: 06/04/15 FINDINGS: Lung bases: Unremarkable. No mass. No consolidation. ABDOMEN: Liver: Hepatic steatosis, correlate to exclude steatohepatitis. Gallbladder and bile ducts: Unremarkable. No calcified stones. No ductal dilation. Pancreas: Unremarkable. No mass. No ductal dilation. Spleen: Unremarkable. No splenomegaly. Adrenals: Unremarkable. No mass. Kidneys and ureters: Benign right renal 2.5 cm cyst, otherwise unremarkable kidneys. No hydronephrosis. Stomach and bowel: Sleeve gastrectomy. No obstruction. PELVIS: Appendix: No findings to suggest acute appendicitis. Bladder: Unremarkable. No mass. Reproductive: Hysterectomy. ABDOMEN and PELVIS: Intraperitoneal space: Unremarkable. No free air. No significant fluid collection. Bones/joints: Sternotomy with mediastinal operative findings. Partly seen right femoral ORIF hardware. No acute fracture. No dislocation. Soft tissues: Unremarkable. Vasculature: Unremarkable. No abdominal aortic aneurysm. Lymph nodes: Unremarkable. No enlarged lymph nodes. Other findings: No acute abnormality definitively identified to account for patient presentation. IMPRESSION: 1. No acute abnormality definitively identified to account for patient presentation. 2. Hepatic steatosis, correlate to exclude steatohepatitis. 3. Sleeve gastrectomy.
[2019-05-31] MEDS ORDERED: DiphenhydrAMINE 50mg/ml Inj ONE (21:41)
[2019-05-31] MEDS ORDERED: HYDROmorphone 1mg/ml Carpuject IVP ONE (21:45)
[2019-05-31 21:47] VITALS: BP 164/108
--- NOTE | 2019-05-31 22:30 | Emergency Room Report ---
History of Present Illness General Chief Complaint: Abdominal Pain Source: Patient Present Illness HPI 48-year-old female presents ED for evaluation. Complaining of abdominal pain with nausea and vomiting. Started yesterday. Pain is right upper quadrant, 8 out of 10, nonradiating. Notes multiple episodes of vomiting. Denies fevers or chills. Denies diarrhea. Denies chest pain. Denies alcohol or drug use. History of gastric sleeve. No other aggravating relieving factors. Denies any other associated symptoms Allergies: Coded Allergies: PENICILLINS (Unverified Allergy, Unknown, 12/04/14) Patient History Past Medical History: HTN, asthma Past Surgical History: other - gastric sleeve Pertinent Family History: none Social History: Denies: smoking, alcohol use, drug use Last Menstrual Period: n/a Now: No Immunizations: UTD Reviewed Nursing Documentation: PMH: Agreed; PSxH: Agreed Nursing Documentation-PMH Past Medical History: No History, Except For Hx Cardiac Problems: Yes Hx Hypertension: Yes Hx Asthma: Yes Hx Diabetes: Yes Hx Cancer: Yes - cervical Hx Gastrointestinal Problems: Yes - gastric sleave Hx Neurological Problems: No Review of Systems All Other Systems: negative except mentioned in HPI Physical Exam Vital Signs Date Time Temp Pulse Resp B/P (MAP) Pulse Ox O2 Delivery O2 Flow Rate FiO2 05/31/19 19:35 99.0 130 18 155/109 (124) 97 Room Air Sp02 EP Interpretation: reviewed, normal General Appearance: alert, GCS 15, non-toxic, mild distress Head: normocephalic, atraumatic Eyes: bilateral eye normal inspection, bilateral eye PERRL ENT: hearing grossly normal, normal pharynx, no angioedema, normal voice Neck: full range of motion, supple/symm/no masses Respiratory: chest non-tender, lungs clear, normal breath sounds, speaking full sentences Cardiovascular #1: no edema, tachycardia Cardiovascular #2: 2+ carotid (R), 2+ carotid (L), 2+ radial (R), 2+ radial (L) , 2+ dorsalis pedis (R), 2+ dorsalis pedis (L) Gastrointestinal: normal bowel sounds, soft, non-distended, no guarding, no rebound, tenderness Rectal: deferred Genitourinary: normal inspection, no CVA tenderness Musculoskeletal: back normal, normal range of motion, gait/station normal, non- tender Neurologic: alert, motor strength/tone normal, oriented x3, sensory intact, responsive, speech normal Psychiatric: judgement/insight normal, memory normal, mood/affect normal, no suicidal/homicidal ideation Reflexes: 3+ bicep (R), 3+ bicep (L), 3+ tricep (R), 3+ tricep (L), 3+ knee (R) , 3+ knee (L) Lymphatic: no adenopathy Medical Decision Making Diagnostic Impression: Primary Impression: Abdominal pain Qualified Codes: R10.13 - Epigastric pain Additional Impression: Chronic pain Qualified Codes: G89.29 - Other chronic pain ER Course Hospital Course 68-year-old M presents to ED with abdominal pain Differential diagnosis includes-appendicitis, cholecystitis, small bowel obstruction, gastritis, Clinical course Patient placed on stretcher. After initial history and physical I ordered labs , IV fluids, pain medications and CT scan Labs - no leukocytosis, electrolytes ok, LFTS ok CT scan shows no acute pathology. hepatic steatosis. I discussed findings with the patient. Patient continues to have pain. I agreed to provide her with 1 round of additional pain medication. History of chronic pain. Will discharge to home. Patient agrees with plan I feel this is a highly complex case requiring extensive working including EKG/ Rhythm strip, Xray/CT/US, Blood/urine lab work, repeat exams while in ED, and administration of strong opiates/narcotics for pain control, admission to hospital or close patient follow up. Diagnosis - abdominal pain, chronic pain Stable and discharged to home. Followup with PMD. Return to ED if symptoms recur or worsen Labs Test 05/31/19 19:40 05/31/19 20:07 Urine Color Pale yellow Urine Appearance Clear Urine pH 8 (4.5-8.0) Urine Specific [place] 1.010 (1.005-1.035) Urine Protein 2+ (NEGATIVE) Urine Glucose (UA) 4+ (NEGATIVE) Urine Ketones 1+ (NEGATIVE) Urine Blood Negative (NEGATIVE) Urine Nitrite Negative (NEGATIVE) Urine Bilirubin Negative (NEGATIVE) Urine Urobilinogen 1 MG/DL (0.0-1.0) Urine Leukocyte Esterase Negative (NEGATIVE) Urine RBC 0-2 /HPF (0 - 2) Urine WBC 0-2 /HPF (0 - 2) Urine Squamous Epithelial Cells Few /LPF (NONE/OCC) Urine Bacteria None /HPF (NONE) Urine HCG, Qualitative Negative (NEGATIVE) Urine Opiates Screen Negative (NEGATIVE) Urine Barbiturates Screen Negative (NEGATIVE) Phencyclidine (PCP) Screen Negative (NEGATIVE) Urine Amphetamines Screen Negative (NEGATIVE) Urine Benzodiazepines Screen Negative (NEGATIVE) Urine Cocaine Screen Negative (NEGATIVE) Urine Marijuana (THC) Screen Positive (NEGATIVE) White Blood Count 6.2 K/UL (4.8-10.8) Red Blood Count 5.54 M/UL (4.20-5.40) Hemoglobin 15.0 G/DL (12.0-16.0) Hematocrit 44.9 % (37.0-47.0) Mean Corpuscular Volume 81 FL (80-99) Mean Corpuscular Hemoglobin 27.1 PG (27.0-31.0) Mean Corpuscular Hemoglobin Concent 33.4 G/DL (32.0-36.0) Red Cell Distribution Width 10.8 % (11.6-14.8) Platelet Count 256 K/UL (150-450) Mean Platelet Volume 7.6 FL (6.5-10.1) Neutrophils (%) (Auto) 79.5 % (45.0-75.0) Lymphocytes (%) (Auto) 13.9 % (20.0-45.0) Monocytes (%) (Auto) 4.9 % (1.0-10.0) Eosinophils (%) (Auto) 0.2 % (0.0-3.0) Basophils (%) (Auto) 1.5 % (0.0-2.0) Sodium Level 138 MMOL/L (136-145) Potassium Level 3.6 MMOL/L (3.5-5.1) Chloride Level 99 MMOL/L (98-107) Carbon Dioxide Level 33 MMOL/L (21-32) Anion Gap 6 mmol/L (5-15) Blood Urea Nitrogen 11 mg/dL (7-18) Creatinine 1.1 MG/DL (0.55-1.30) Estimat Glomerular Filtration Rate > 60 mL/min (>60) Glucose Level 294 MG/DL (74-106) Calcium Level 8.2 MG/DL (8.5-10.1) Total Bilirubin 0.4 MG/DL (0.2-1.0) Aspartate Amino Transf (AST/SGOT) 16 U/L (15-37) Alanine Aminotransferase (ALT/SGPT) 29 U/L (12-78) Alkaline Phosphatase 71 U/L (46-116) Total Protein 8.3 G/DL (6.4-8.2) Albumin 3.6 G/DL (3.4-5.0) Globulin 4.7 g/dL Albumin/Globulin Ratio 0.8 (1.0-2.7) Lipase 95 U/L (73-393) Human Chorionic Gonadotropin, Qual Negative (NEGATIVE) CT/MRI/US Diagnostic Results CT/MRI/US Diagnostic Results : Imaging Test Ordered: CT A/P Impression COMPARISON: 06/04/15 FINDINGS: Lung bases: Unremarkable. No mass. No consolidation. ABDOMEN: Liver: Hepatic steatosis, correlate to exclude steatohepatitis. Gallbladder and bile ducts: Unremarkable. No calcified stones. No ductal dilation. Pancreas: Unremarkable. No mass. No ductal dilation. Spleen: Unremarkable. No splenomegaly. Adrenals: Unremarkable. No mass. Kidneys and ureters: Benign right renal 2.5 cm cyst, otherwise unremarkable kidneys. No hydronephrosis. Stomach and bowel: Sleeve gastrectomy. No obstruction. PELVIS: Appendix: No findings to suggest acute appendicitis. Bladder: Unremarkable. No mass. Reproductive: Hysterectomy. ABDOMEN and PELVIS: Intraperitoneal space: Unremarkable. No free air. No significant fluid collection. Bones/joints: Sternotomy with mediastinal operative findings. Partly seen right femoral ORIF hardware. No acute fracture. No dislocation. Soft tissues: Unremarkable. Vasculature: Unremarkable. No abdominal aortic aneurysm. Lymph nodes: Unremarkable. No enlarged lymph nodes. Other findings: No acute abnormality definitively identified to account for patient presentation. Last Vital Signs Date Time Temp Pulse Resp B/P (MAP) Pulse Ox O2 Delivery O2 Flow Rate FiO2 05/31/19 21:47 112 16 Room Air 05/31/19 21:47 99.0 164/108 97 Status: improved Disposition: HOME, SELF-CARE Condition: Stable Scripts Ondansetron Odt* (ZOFRAN ODT*) 4 Mg Tab.rapdis 4 MG BC EVERY 6 HOURS PRN for Nausea & Vomiting, #20 TAB 0 Refills Prov: Scott Tovar MD 05/31/19 Tramadol Hcl* (ULTRAM*) 50 Mg Tablet 50 MG ORAL Q6H PRN for For Pain, #12 TAB 0 Refills Prov: Scott Tovar MD 05/31/19 Ranitidine Hcl* (ZANTAC*) 150 Mg Tablet 150 MG ORAL TWICE A DAY, #30 TAB Prov: Scott Tovar MD 05/31/19 Referrals: [facility],REFERR[facility] (PCP) Scott Tovar MD May 31, 2019 22:30
[2019-05-31 22:37] VITALS: BP 149/99
[2019-05-31] MEDS ORDERED: TRAMADOL HCL50 MG ORAL (22:51)
[2019-05-31] MEDS ORDERED: ONDANSETRON ODT4 MG BC (22:51)
[2019-05-31] MEDS ORDERED: RANITIDINE HCL150 MG ORAL (22:51)
[2019-05-31 22:54] VITALS: BP 145/89
== END 2019-05-31 22:55 | disposition home or self-care (01) ==
LOC: EMR 19:52
DX: R10.13 Epigastric pain (principal); G89.29 Other chronic pain; Z98.84 Bariatric surgery status; I10 Essential (primary) hypertension; Z88.0 Allergy status to penicillin; E11.9 Type 2 diabetes mellitus without complications; Z85.41 Personal history of malignant neoplasm of cervix uteri
CPT/HCPCS: 36415; 74177; 80053; 80307; 81003; 81025; 83690; 84703; 85025; 96361; 96374; 96375; J1170; J2270; J2405; Q9967; S0028; Z7502; 99284

== ENCOUNTER 2020-05-21 13:18 | Emergency (ER) | payer OTHER ==
[~2020-05-21] VITALS: Ht 160 cm; Wt 91.6 kg
[~2020-05-21 13:18] MED LIST changes: +CLINDAMYCIN HC150 MG ORAL; +NORVASC10 MG ORAL; +ONDANSETRON ODT4 MG BC; +PREDNISONE20 MG ORAL; +RANITIDINE HCL150 MG ORAL; +TRAMADOL HCL50 MG ORAL
[2020-05-21 13:28] VITALS: BP 155/104
--- NOTE | 2020-05-21 13:28 | NUR ---
ED Nurse Note: Patient walked in to ED from home c/o right lower abdominal pain and nausea x2 days. Denies diarrhea. Afebrile. AAox4, verbally responsive. No SOB, on room air. Pt placed on monitoring analyst. ERPA at bedside.
[2020-05-21] MEDS ORDERED: Morphine Sulfate 2mg/ml Inj(IV/IM USE ONLY) IVP ONE ×2 (13:30→15:30)
[2020-05-21] MEDS ORDERED: Omnipaque-300 100ml vial INJ PRN (13:30)
[2020-05-21] MEDS ORDERED: Ketorolac 30mg Inj IV ONE (13:45)
--- NOTE | 2020-05-21 13:53 | NUR ---
ED Nurse Note: IV line established. Blood and urine sent to lab.
--- NOTE | 2020-05-21 13:54 | Emergency Room Report ---
History of Present Illness General Chief Complaint: Abdominal Pain Source: Patient Present Illness HPI 49-year-old female with history of diabetes currently insulin-dependent, hypertension and status post thyroidectomy due to thyroid cancer here complaining of 2 days of severe right lower quadrant abdominal pain with few bouts of nonbloody emesis. Denies diarrhea however complains of 2 days of constipation. Denies any blood in stool. Denies fever and chills, chest pain, shortness of breath, headache and dizziness. Reports that the symptoms started as she was resting and does not recall whether they started after eating anything different. Denies any alcohol intake. Reports that she smokes marijuana daily basis. Denies tobacco smoke. Patient also had a total hysterectomy years ago. Denies all other abdominal surgical history. Allergies: Coded Allergies: PENICILLINS (Unverified Allergy, Unknown, 12/04/14) COVID-19 Screening Contact w/high risk pt: No Experienced COVID-19 symptoms?: No COVID-19 Testing performed FRONT DESK LEAD: No Patient History Past Medical History: see triage record Past Surgical History: none Pertinent Family History: none Now: No Immunizations: UTD Reviewed Nursing Documentation: PMH: Agreed; PSxH: Agreed Nursing Documentation-PMH Past Medical History: No History, Except For Hx Cardiac Problems: Yes Hx Hypertension: Yes Hx Asthma: Yes Hx Diabetes: Yes Hx Cancer: Yes Hx Gastrointestinal Problems: Yes - gastric sleave Hx Neurological Problems: No Review of Systems All Other Systems: negative except mentioned in HPI Physical Exam Vital Signs Date Time Temp Pulse Resp B/P (MAP) Pulse Ox O2 Delivery O2 Flow Rate FiO2 05/21/20 13:23 97.3 111 19 155/104 (121) 98 Room Air Sp02 EP Interpretation: reviewed, normal General Appearance: no apparent distress, alert, GCS 15, non-toxic Head: normocephalic, atraumatic Eyes: bilateral eye normal inspection, bilateral eye PERRL ENT: hearing grossly normal, normal pharynx, no angioedema, normal voice Neck: full range of motion, supple/symm/no masses Respiratory: chest non-tender, lungs clear, normal breath sounds, speaking full sentences Cardiovascular #1: regular rate, rhythm, no edema Gastrointestinal: no mass, no organomegaly, no peritonitis, no bruit, non-distended, guarding - Right lower quadrant, other - Negative Rovsing's, negative McBurney's Rectal: deferred Genitourinary: no CVA tenderness Musculoskeletal: back normal Neurologic: alert, motor strength/tone normal, oriented x3, sensory intact, responsive, speech normal Psychiatric: judgement/insight normal, memory normal, mood/affect normal, no suicidal/homicidal ideation Skin: no rash, palpation normal, normal color Lymphatic: no adenopathy Medical Decision Making PA Attestation All diagnoses and treatment plans were reviewed and discussed with my supervising physician Dr. Veliz Diagnostic Impression: Primary Impression: Diverticulosis Additional Impression: Abdominal pain ER Course 49-year-old female with history of diabetes currently insulin-dependent, hypertension and status post thyroidectomy due to thyroid cancer here complaining of 2 days of severe right lower quadrant abdominal pain with few bouts of nonbloody emesis. Denies diarrhea however complains of 2 days of constipation. Denies any blood in stool. Denies fever and chills, chest pain, shortness of breath, headache and dizziness. Reports that the symptoms started as she was resting and does not recall whether they started after eating anything different. Denies any alcohol intake. Reports that she smokes marijuana daily basis. Denies tobacco smoke. Patient also had a total hysterectomy years ago. Denies all other abdominal surgical history. Ddx considered but are not limited to: appendicitis, cholecystis, gastritis, g astroenteritis, UTI, pyelonephritis, SBO, diverticulitis, pancreatitis, cannabis hyperemesis, NM Vital signs: are WNL, pt. is afebrile H&PE are most consistent with: diverticulosis, abdominal pain ORDERS: abdominal CT, abdominal pain set, EKG, Zofran, dicyclomine, lactulose, pepcid ED INTERVENTIONS: NS bolus, morphine, Zofran, Pepcid, Toradol DISCHARGE: At this time pt. is stable for d/c to home. Will provide printed patient care instructions, and any necessary prescriptions. Care plan and follow up instructions have been discussed with the patient prior to discharge. Take medication as directed, increase fiber intake, increase oral hydration, if worsening symptoms return to the emergency room. EKG Diagnostic Results Rate: normal Rhythm: NSR ST Segments: no acute changes Other Impression No acute ST changes ASA given to the pt in ED: No CT/MRI/US Diagnostic Results CT/MRI/US Diagnostic Results : Imaging Test Ordered: CT abdomen pelvis with contrast Impression Diverticulosis without diverticulitis Last Vital Signs Date Time Temp Pulse Resp B/P (MAP) Pulse Ox O2 Delivery O2 Flow Rate FiO2 05/21/20 13:23 97.3 111 19 155/104 (121) 98 Room Air Disposition: HOME, SELF-CARE Condition: Stable Referrals: [facility],REFERRING (PCP) Patient Instructions: Abdominal Pain, Adult, Diverticulosis Additional Instructions: Take medication as directed, increase fiber intake, increase oral hydration, if worsening symptoms return to the emergency room. Rogelio Lee May 21, 2020 13:54
[2020-05-21 14:09] LABS: BASOPHILS % (AUTO) 1.8 % (0.0-2.0); EOSINOPHILS % (AUTO) 4.3 % (0.0-3.0); HEMATOCRIT 50.3 % (37.0-47.0); HEMOGLOBIN 15.2 G/DL (12.0-16.0); LYMPHOCYTES % (AUTO) 47.3 % (20.0-45.0); MEAN CORPUSCULAR VOLUME 91 FL (80-99); MONOCYTES % (AUTO) 6.8 % (1.0-10.0); NEUTROPHILS % (AUTO) 39.8 % (45.0-75.0); PLATELET COUNT 255 K/UL (150-450); RED CELL DISTRIBUTION WIDTH 13.4 % (11.6-14.8); WHITE BLOOD COUNT 5.9 K/UL (4.8-10.8)
[2020-05-21 14:27] LABS: ANION GAP 6 mmol/L (5-15); BLOOD UREA NITROGEN 12 mg/dL (7-18); CALCIUM 8.5 MG/DL (8.5-10.1); CARBON DIOXIDE 30 MMOL/L (21-32); CHLORIDE 98 MMOL/L (98-107); CREATININE 1.1 MG/DL (0.55-1.30); POTASSIUM 3.5 MMOL/L (3.5-5.1); SODIUM 134 MMOL/L (136-145)
[2020-05-21 14:32] LABS: ALANINE AMINOTRANSFERASE 14 U/L (12-78); ALBUMIN 3.3 G/DL (3.4-5.0); ALBUMIN/GLOBULIN RATIO 0.7 (1.0-2.7); ALKALINE PHOSPHATASE 69 U/L (46-116); ASPARTATE AMINO TRANSFERASE 17 U/L (15-37); BILIRUBIN,TOTAL 0.2 MG/DL (0.2-1.0)
--- NOTE | 2020-05-21 14:57 | NUR ---
ED Nurse Note: Pt taken to CT via wc accompanied by a tech.
--- NOTE | 2020-05-21 15:34 | Diagnostic Imaging Report ---
Indication: Abdominal pain Technique: CT of the abdomen and pelvis utilizing automated exposure control with intravenous contrast. Venous scanning performed. Axial, sagittal and coronal reformats presented. CT dose: Total DLP 581.9 mGycm; CTDI vol 10.7 mGy Comparison: 05/31/2019 Findings: Mild linear atelectasis or scarring noted in the middle lobe. Heart size is within normal limits. There is no pericardial effusion. Partially imaged breast tissue appears grossly symmetric. Sternal wires are partially visualized. Hepatic contour is smooth. Some low attenuation is noted along the falciform ligament which may represent focal fatty infiltration. Hepatic veins and portal veins are patent. There are no CT evident gallstones or pericholecystic inflammatory changes. No biliary ductal dilatation. Spleen, adrenal glands and pancreas unremarkable. Pancreatic enhancement is uniform. There is no peripancreatic inflammatory change or fluid collection. A simple appearing cyst is again noted in the right kidney. There is no urinary tract stone or hydronephrosis. There is bladder wall thickening. Patient is status post hysterectomy. There is no free intraperitoneal air or fluid. There is no evidence of small bowel obstruction or appreciable focal inflammatory stranding within the mesenteric fat. The appendix is normal in caliber and there are no periappendiceal inflammatory changes. There are scattered colonic diverticula. No evidence to suggest acute diverticulitis. Postoperative appearance of the stomach is again seen suggesting prior sleeve gastrectomy. Abdominal aorta is normal in caliber. No acute fractures identified. Patient status post surgical fixation of a right femoral fracture with indwelling dynamic hip screw. No aggressive/destructive bony lesion is appreciated. No subcutaneous fluid collection or abscess. IMPRESSION: No CT evidence of acute abdominal pathology. Postoperative appearance the stomach suggesting prior sleeve gastrectomy. No bowel obstruction. Normal appendix. A few scattered colonic diverticula. No evidence of acute diverticulitis. The CT scanner at [facility] is accredited by the [employer] and the scans are performed using protocols designed to limit radiation exposure to as low as reasonably achievable to attain images of sufficient resolution adequate for diagnostic evaluation.
[2020-05-21] MEDS ORDERED: ZOFRAN4 M1 ORAL (15:45)
[2020-05-21] MEDS ORDERED: DICYCLOMINE HCL10 MG ORAL (15:45)
[2020-05-21] MEDS ORDERED: LACTULOSE20 GM/301 ORAL (15:45)
[2020-05-21] MEDS ORDERED: FAMOTIDINE20 MG ORAL (15:45)
[2020-05-21 16:05] LABS: APPEARANCE,URINE CLEAR; BILIRUBIN, URINE NEGATIVE (NEGATIVE); COLOR,URINE YELLOW; GLUCOSE, URINE (UA) 4+ (NEGATIVE); KETONES,URINE NEGATIVE (NEGATIVE); LEUKOCYTE ESTERASE ,URINE NEGATIVE (NEGATIVE); NITRITE,URINE NEGATIVE (NEGATIVE); PH,URINE 7 (4.5-8.0); PROTEIN,URINE NEGATIVE (NEGATIVE); UROBILINOGEN,URINE 1 MG/DL (0.0-1.0)
[2020-05-21 16:21] VITALS: BP 145/82
--- NOTE | 2020-05-21 16:21 | NUR ---
ED Nurse Note: Pt cleared by ERMD for discharge. DC instructions/prescription was given and explained to pt and verbalized understanding of teachings. All medical deviecs such as ID band and IV line removed. Pt is AAO x4, ambulatory and left with all personal belongings.
--- NOTE | 2020-05-23 20:41 | Cardiology Report ---
APPROVED REPORT EKG Measurement Heart [id number] <Conclusion> Normal sinus rhythm Cannot rule out Anterior infarct, age undetermined Abnormal ECG
== END 2020-05-21 16:21 | disposition home or self-care (01) ==
LOC: EMR 13:35
DX: K57.90 Diverticulosis of intestine, part unspecified, without perforation or abscess without bleeding (principal); R10.31 Right lower quadrant pain; E11.9 Type 2 diabetes mellitus without complications; J45.909 Unspecified asthma, uncomplicated; I11.9 Hypertensive heart disease without heart failure; F12.10 Cannabis abuse, uncomplicated; Z85.850 Personal history of malignant neoplasm of thyroid; Z79.4 Long term (current) use of insulin; Z88.0 Allergy status to penicillin; Z98.84 Bariatric surgery status; Z90.710 Acquired absence of both cervix and uterus
CPT/HCPCS: 36415; 74177; 80053; 80307; 81003; 83690; 84484; 85025; 85610; 85730; 93005; 96361; 96374; 96375; 96376; G0480; J1885; J2270; J2405; J7030; Q9965; S0028; Z7502; 99284

== ENCOUNTER 2020-06-13 12:35 | Inpatient (IN) | payer OTHER ==
[~2020-06-13] VITALS: Ht 160 cm; Wt 90.7 kg
[~2020-06-13 12:35] MED LIST changes: +DICYCLOMINE HCL10 MG ORAL; +FAMOTIDINE20 MG ORAL; +LACTULOSE20 GM/301 ORAL; +ZOFRAN4 M1 ORAL
--- NOTE | 2020-06-13 13:05 | Emergency Room Report ---
History of Present Illness General Chief Complaint: Chest Pain Source: Patient (Steven Veliz MD) Present Illness HPI Disclaimer: Please note that this report is being documented using [employer] technology. This can lead to erroneous entry secondary to incorrect interpretat ion by the dictating instrument. HPI: 49-year-old female presents for evaluation of chest pain. Symptoms began earlier this morning and are worsening. She reports 10 out of 10 pain that originated over the left side of the neck traveled over the left shoulder then into the left axilla now centered over the left chest. It radiates through to the back. Reports it is a sharp pain. Exacerbated by movements. Reports a recent nonproductive cough. Denies fever chills or vomiting. Denies trauma. Otherwise in her usual state of health. 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 COVID-19 Screening: Negative COVID-19 COVID-19 Testing Source: [place] last week (Steven Veliz MD) Patient History Last Menstrual Period: none Now: No (Steven Veliz MD) Nursing Documentation-PMH Past Medical History: No History, Except For Hx Cardiac Problems: Yes Hx Hypertension: Yes Hx Asthma: Yes Hx Diabetes: Yes Hx Cancer: Yes Hx Gastrointestinal Problems: Yes - gastric sleave Hx Neurological Problems: No (Steven Veliz MD) Review of Systems All Other Systems: negative except mentioned in HPI (Steven Veliz MD) Physical Exam Vital Signs Date Time Temp Pulse Resp B/P (MAP) Pulse Ox O2 Delivery O2 Flow Rate FiO2 06/13/20 12:44 97.5 100 22 151/82 (105) 95 Room Air General: Awake and alert, appears uncomfortable HEENT: NC/AT. EOMI. Cardiovascular: Tachycardic. S1 and S2 normal. No murmur appreciated Resp: Normal work of breathing. No cough, wheezing or crackles appreciated Abdomen: Abdomen is soft, nondistended. Nontender Skin: Thyroidectomy scar clean dry and intact. No other rash or skin breakdown noted MSK: Normal tone and bulk. Moving all extremities. No obvious deformity. Neuro: Awake and alert. Mentating appropriately. (Steven Veliz MD) Medical Decision Making Diagnostic Impression: Primary Impression: ACS (acute coronary syndrome) ER Course Is a 49-year-old female presenting for evaluation of chest pain. Differential includes was not limited to arrhythmia, ACS, PE, pneumonia, thoracic aneurysm, muscle spasm, musculoskeletal chest wall pain, GERD among others. EKG on arrival shows normal sinus rhythm without signs of ischemia. EKG on arrival is nonischemic. Patient is hypertensive. Concern for thoracic aneurysm CTA ordered. Labs are pending. She will require admission. Signed out to oncoming provider pending ultimate disposition. (Steven Veliz MD) ER Course Endorsed to me by Dr. Veliz. Patient had unremarkable EKG with negative initial troponin. Patient's CT of the chest was unremarkable. Patient's case was discussed with for [facility] for panel admission. Labs Test 06/13/20 13:11 06/13/20 16:26 White Blood Count 6.1 K/UL (4.8-10.8) Red Blood Count 5.24 M/UL (4.20-5.40) Hemoglobin 14.3 G/DL (12.0-16.0) Hematocrit 45.3 % (37.0-47.0) Mean Corpuscular Volume 86 FL (80-99) Mean Corpuscular Hemoglobin 27.2 PG (27.0-31.0) Mean Corpuscular Hemoglobin Concent 31.5 G/DL (32.0-36.0) Red Cell Distribution Width 14.1 % (11.6-14.8) Platelet Count 229 K/UL (150-450) Mean Platelet Volume 11.2 FL (6.5-10.1) Neutrophils (%) (Auto) 47.5 % (45.0-75.0) Lymphocytes (%) (Auto) 34.9 % (20.0-45.0) Monocytes (%) (Auto) 7.2 % (1.0-10.0) Eosinophils (%) (Auto) 8.4 % (0.0-3.0) Basophils (%) (Auto) 1.9 % (0.0-2.0) Sodium Level 135 MMOL/L (136-145) Potassium Level 3.9 MMOL/L (3.5-5.1) Chloride Level 100 MMOL/L (98-107) Carbon Dioxide Level 29 MMOL/L (21-32) Anion Gap 6 mmol/L (5-15) Blood Urea Nitrogen 12 mg/dL (7-18) Creatinine 1.2 MG/DL (0.55-1.30) Estimat Glomerular Filtration Rate 58.4 mL/min (>60) Glucose Level 418 MG/DL (74-106) Calcium Level 8.5 MG/DL (8.5-10.1) Total Bilirubin 0.2 MG/DL (0.2-1.0) Aspartate Amino Transf (AST/SGOT) 10 U/L (15-37) Alanine Aminotransferase (ALT/SGPT) 25 U/L (12-78) Alkaline Phosphatase 70 U/L (46-116) Troponin I 0.000 ng/mL (0.000-0.056) Total Protein 7.4 G/DL (6.4-8.2) Albumin 3.2 G/DL (3.4-5.0) Globulin 4.2 g/dL Albumin/Globulin Ratio 0.8 (1.0-2.7) POC Whole Blood Glucose 284 MG/DL (74-106) (Luis Mcconnell MD) EKG Diagnostic Results Troponin ordered: Yes When was troponin ordered?: Jun 13, 2020 EKG Time: 13:00 Rate: normal Rhythm: NSR ST Segments: no acute changes Other Impression Sinus rhythm, normal axis, normal intervals, no ST segment changes. (Steven Veliz MD) Rate: normal Rhythm: NSR ST Segments: no acute changes (Luis Mcconnell MD) Rhythm Strip Diag. Results Rhythm Strip Time: 13:00 EP Interpretation: yes Rate: 90s Rhythm: NSR, no PVC's, no ectopy (Steven Veliz MD) Last Vital Signs Date Time Temp Pulse Resp B/P (MAP) Pulse Ox O2 Delivery O2 Flow Rate FiO2 06/13/20 12:44 97.5 100 22 151/82 (105) 95 Room Air (Steven Veliz MD) Status: improved (Luis Mcconnell MD) Disposition: ADMITTED INPATIENT Condition: Stable Stevne Veliz MD Jun 13, 2020 13:05 Luis Mcconnell MD Jun 13, 2020 16:45
[2020-06-13] MEDS ORDERED: Morphine Sulfate 4mg/ml Inj (IV USE ONLY) IVP ONE ×2 (13:15→18:30)
[2020-06-13 13:32] VITALS: BP 145/80
[2020-06-13 13:40] LABS: BASOPHILS % (AUTO) 1.9 % (0.0-2.0); EOSINOPHILS % (AUTO) 8.4 % (0.0-3.0); HEMATOCRIT 45.3 % (37.0-47.0); HEMOGLOBIN 14.3 G/DL (12.0-16.0); LYMPHOCYTES % (AUTO) 34.9 % (20.0-45.0); MEAN CORPUSCULAR VOLUME 86 FL (80-99); MONOCYTES % (AUTO) 7.2 % (1.0-10.0); NEUTROPHILS % (AUTO) 47.5 % (45.0-75.0); PLATELET COUNT 229 K/UL (150-450); RED BLOOD COUNT 5.24 M/UL (4.20-5.40); RED CELL DISTRIBUTION WIDTH 14.1 % (11.6-14.8); WHITE BLOOD COUNT 6.1 K/UL (4.8-10.8)
[2020-06-13] MEDS ORDERED: Nitroglycerin 2% oint pkt TOPIC ONE (13:45)
[2020-06-13] MEDS: Nitroglycerin Subl 0.4mg tab SL PRN (13:52)
[2020-06-13 13:58] LABS: CALCIUM 8.5 MG/DL (8.5-10.1); CREATININE 1.2 MG/DL (0.55-1.30); POTASSIUM 3.9 MMOL/L (3.5-5.1)
[2020-06-13 14:03] LABS: ALBUMIN 3.2 G/DL (3.4-5.0); ALBUMIN/GLOBULIN RATIO 0.8 (1.0-2.7); BILIRUBIN,TOTAL 0.2 MG/DL (0.2-1.0)
[2020-06-13 14:12] VITALS: BP 127/83
[2020-06-13 15:00] VITALS: BP 122/75
[2020-06-13] MEDS ORDERED: LISINOPRIL40 MG ORAL (15:12)
[2020-06-13] MEDS ORDERED: Hydromorphone 0.5mg/0.5ml inj IVP ONE (15:15)
--- NOTE | 2020-06-13 15:40 | Diagnostic Imaging Report ---
EXAM: CT Angiography Chest With Intravenous Contrast CLINICAL HISTORY: AA TECHNIQUE: Axial computed tomographic angiography images of the chest with intravenous contrast. CTDI is 10.7 mGy and DLP is 695 mGy-cm. One or more of the following dose reduction techniques were used: automated exposure control, adjustment of the mA and/or kV according to patient size, use of iterative reconstruction technique. MIP reconstructed images were created and reviewed. COMPARISON: CT chest on 03/09/2015 FINDINGS: Pulmonary arteries: No pulmonary embolus identified. Aorta: No aortic aneurysm or dissection. Lungs: Subsegmental atelectasis or scarring in the right lung. No focal consolidation. Pleural space: Unremarkable. No significant effusion. No pneumothorax. Heart: Unremarkable. No cardiomegaly. No significant pericardial effusion. No evidence of RV dysfunction. Thyroid: Enlarged, heterogeneous right thyroid lobe partially visualized and could be further evaluated with nonemergent dedicated ultrasound if clinically indicated. Bones/joints: Median sternotomy changes. Multiple surgical clips in the anterior superior mediastinum. No acute fracture. No dislocation. Soft tissues: Unremarkable. Lymph nodes: Unremarkable. No enlarged lymph nodes. IMPRESSION: 1. No pulmonary embolus identified. 2. No aortic aneurysm or dissection. 3. No acute pulmonary parenchymal abnormality identified. EXAM: CT Angiography Abdomen and Pelvis With Intravenous Contrast CLINICAL HISTORY: AA TECHNIQUE: Axial computed tomographic angiography images of the abdomen and pelvis with intravenous contrast. CTDI is 10.7 mGy and DLP is 695 mGy-cm. One or more of the following dose reduction techniques were used: automated exposure control, adjustment of the mA and/or kV according to patient size, use of iterative reconstruction technique. MIP reconstructed images were created and reviewed. COMPARISON: None FINDINGS: VASCULATURE: Aorta: No aortic aneurysm or dissection. Celiac trunk and mesenteric arteries: No acute findings. No occlusion or significant stenosis. Renal arteries: No acute findings. No occlusion or significant stenosis. Iliac arteries: No acute findings. No occlusion or significant stenosis. ABDOMEN: Liver: Unremarkable. No mass. Gallbladder and bile ducts: Unremarkable. No calcified stones. No ductal dilation. Pancreas: Unremarkable. No ductal dilation. No mass. Spleen: Unremarkable. No splenomegaly. Adrenals: Unremarkable. No mass. Kidneys and ureters: Right renal cyst. No hydronephrosis or obstructing stone. Stomach and bowel: Large amount of stool in the colon may represent constipation. No bowel obstruction. Diverticulosis without evidence of diverticulitis. PELVIS: Appendix: No findings to suggest acute appendicitis. Bladder: Distended bladder. No significant bladder wall thickening or stone. Reproductive: Prior hysterectomy. ABDOMEN and PELVIS: Intraperitoneal space: Phleboliths in the pelvis. No significant fluid collection. No free air. Bones/joints: No acute fracture. No dislocation. Soft tissues: Unremarkable. Lymph nodes: Unremarkable. No enlarged lymph nodes. IMPRESSION: 1. No aortic aneurysm or dissection. 2. Large amount of stool in the colon may represent constipation. No bowel obstruction.
[2020-06-13 17:30] VITALS: BP 134/103
[2020-06-13] MEDS ORDERED: Acetaminophen 500mg (ES) tab ORAL ONE (17:30)
[2020-06-13] MEDS ORDERED: insulin (17:37)
[2020-06-13] MEDS ORDERED: Aspirin Baby 81mg ORAL ONE (18:30)
--- NOTE | 2020-06-13 18:59 | History and Physical ---
History of Present Illness General Date patient seen: Jun 13, 2020 Time patient seen: 05:40 Reason for Hospitalization: Chest Pain Present Illness HPI 49F with PMhx of Insulin dependent DM2, HTN, and GERD presents with chest pain. Patient states that her symptoms began this morning and the pain worsened. She initially rated the pain as a 10/10 with pain starting in the neck and radiating into left shoulder and left axilla. She is complaining of pain in her chest that she now rates as a 7/10. She characterizes the pain as sharp. She denies any fever, chills, n/v or change in bowel movements. She expresses some symptoms of shortness of breath. Lives with her kids. Denies tobacco use. Drinks hard liquor/wine 1x/week. Denies any other recreational drug use Additional PMhx of Thyroid cancer s/p surgical intervention and cervical cancer. Allergies: Coded Allergies: PENICILLINS (Unverified Allergy, Unknown, 12/04/14) COVID-19 Screening Contact w/high risk pt: No Recent Travel to affected area: No Experienced COVID-19 symptoms?: No Medication History Scheduled Amlodipine Besylate (Norvasc), 10 MG ORAL DAILY Clindamycin Hcl* (Clindamycin Hcl*), 450 MG ORAL TID Dicyclomine Hcl* (Dicyclomine Hcl*), 10 MG ORAL QID Famotidine* (Pepcid 20mg tablet*), 20 MG ORAL DAILY Ibuprofen (Motrin), 600 MG ORAL THREE TIMES A DAY Lactulose (Lactulose*), 15 ML ORAL TID Lisinopril* (Lisinopril*), 40 MG ORAL DAILY, (Reported) Metformin Hcl* (Metformin Hcl*), 500 MG ORAL TWICE A DAY Prednisone* (Prednisone*), 40 MG ORAL DAILY Scheduled PRN Hydrocodone Bit/Acetaminophen 5-325* ([place] 5-325*), 1 TAB ORAL Q6H PRN for For Pain Ondansetron (Zofran), 4 MG ORAL Q6H PRN for Nausea & Vomiting Miscellaneous Medications [insulin], (Reported) Patient History History Provided By: Patient Healthcare decision maker Resuscitation status Advanced Directive on File Family History Family History: FH: hypertension Review of Systems Constitutional: Denies: no symptoms, see HPI, chills, sweats, fever, malaise, weakness, other Eye: Denies: no symptoms, see HPI, eye pain, blurred vision, tearing, double vision, nose pain, nose congestion, acuity changes, discharge, other ENT: Denies: no symptoms, see HPI, ear pain, ear discharge, nose pain, nose congestion, throat pain, throat swelling, mouth pain, hearing loss, nasal discharge, other Respiratory: Reports: shortness of breath Cardiovascular: Reports: chest pain Gastrointestinal: Denies: no symptoms, see HPI, abdominal pain, constipation, diarrhea, nausea, vomiting, melena, hematemesis, other Genitourinary: Denies: no symptoms, see HPI, discharge, dysuria, frequency, hematuria, pain, retention, incontinence, urgency, vag bleed/dc, other Musculoskeletal: Denies: no symptoms, see HPI, back pain, gout, joint pain, joint swelling, muscle pain, muscle stiffness, other Skin: Denies: no symptoms, see HPI, rash, change in color, change in hair/nails, dryness, lesions, other Psychiatric: Denies: no symptoms, see HPI, prior hx, anxiety, depressed feelings, emotional problems, SI, HI, hallucinations, other Neurological: Denies: no symptoms, see HPI, headache, numbness, paresthesia, seizure, tingling, tremors, focal weakness, syncope, dizziness, other Endocrine: Denies: no symptoms, see HPI, excessive sweating, flushing, in tolerance to temperature, increased thirst, increased urine, unexplained weight loss, other Hematologic/Lymphatic: Denies: no symptoms, see HPI, anemia, blood clots, easy bleeding, easy bruising, swollen glands, diathesis, other Physical Exam General Appearance: alert HEENT: normocephalic, atraumatic Neck: supple Respiratory/Chest: lungs clear, normal breath sounds Cardiovascular/Chest: normal rate, regular rhythm Abdomen: non tender, soft Extremities: normal range of motion Skin Exam: warm/dry, other - mid-line scar appreciated on chest wall 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, alert Last 24 Hour Vital Signs Date Time Temp Pulse Resp B/P (MAP) Pulse Ox O2 Delivery O2 Flow Rate FiO2 06/13/20 17:30 98.2 89 16 134/103 99 Room Air 06/13/20 15:00 98.2 86 18 122/75 100 Room Air 06/13/20 14:12 95 17 127/83 98 Room Air 06/13/20 13:54 97.5 06/13/20 13:53 154/91 06/13/20 13:52 154/94 06/13/20 13:32 97.5 96 21 145/80 99 Room Air 06/13/20 13:32 96 21 Room Air 99 06/13/20 12:44 97.5 100 22 151/82 (105) 95 Room Air Laboratory Tests Test 06/13/20 13:11 06/13/20 13:17 06/13/20 16:26 White Blood Count 6.1 K/UL (4.8-10.8) Red Blood Count 5.24 M/UL (4.20-5.40) Hemoglobin 14.3 G/DL (12.0-16.0) Hematocrit 45.3 % (37.0-47.0) Mean Corpuscular Volume 86 FL (80-99) Mean Corpuscular Hemoglobin 27.2 PG (27.0-31.0) Mean Corpuscular Hemoglobin Concent 31.5 G/DL (32.0-36.0) L Red Cell Distribution Width 14.1 % (11.6-14.8) Platelet Count 229 K/UL (150-450) Mean Platelet Volume 11.2 FL (6.5-10.1) H Neutrophils (%) (Auto) 47.5 % (45.0-75.0) Lymphocytes (%) (Auto) 34.9 % (20.0-45.0) Monocytes (%) (Auto) 7.2 % (1.0-10.0) Eosinophils (%) (Auto) 8.4 % (0.0-3.0) H Basophils (%) (Auto) 1.9 % (0.0-2.0) Sodium Level 135 MMOL/L (136-145) L Potassium Level 3.9 MMOL/L (3.5-5.1) Chloride Level 100 MMOL/L (98-107) Carbon Dioxide Level 29 MMOL/L (21-32) Anion Gap 6 mmol/L (5-15) Blood Urea Nitrogen 12 mg/dL (7-18) Creatinine 1.2 MG/DL (0.55-1.30) Estimat Glomerular Filtration Rate 58.4 mL/min (>60) Glucose Level 418 MG/DL (74-106) H Calcium Level 8.5 MG/DL (8.5-10.1) Total Bilirubin 0.2 MG/DL (0.2-1.0) Aspartate Amino Transf (AST/SGOT) 10 U/L (15-37) L Alanine Aminotransferase (ALT/SGPT) 25 U/L (12-78) Alkaline Phosphatase 70 U/L (46-116) Troponin I 0.000 ng/mL (0.000-0.056) Total Protein 7.4 G/DL (6.4-8.2) Albumin 3.2 G/DL (3.4-5.0) L Globulin 4.2 g/dL Albumin/Globulin Ratio 0.8 (1.0-2.7) L Pro-B-Type Natriuretic Peptide Pending POC Whole Blood Glucose 284 MG/DL (74-106) H Height (Feet): 5 Height (Inches): 3.00 Weight (Pounds): 200 Medications Current Medications Medications (Trade) Dose Ordered Sig/Mando Route PRN Reason Start Time Stop Time Status Last Admin Dose Admin Dextrose (Dextrose 50%) 25 ml Q30M PRN IV Hypoglycemia 06/13/20 17:15 09/11/20 17:14 Dextrose (Dextrose 50%) 50 ml Q30M PRN IV Hypoglycemia 06/13/20 17:15 09/11/20 17:14 Nitroglycerin (Ntg) 0.4 mg Q5M PRN SL Prn Chest Pain 06/13/20 13:45 07/13/20 13:44 06/13/20 13:52 Assessment/Plan Status: stable Diagnosis Farrell I: 49 F admitted for chest pain. #Chest Pain #R/o ACS Patient presents with sharp chest pain that radiates to the shoulder. - Admit to tele - CTA C/a/p - No PE, No Aortic aneurysm or dissection - EKG - No ST-changes noted at this time - S/p Nitro x1 and Morphine - Aspirin administered - Continue Lisinopril and Statin - Will consider possible stress test in patient - Trend troponin - EKG prn for chest pain - Keep K>4 and Mag >2 - Cardiology Consult #DM2 - Insulin dependent DM2 - Takes 26U of Long acting insulin in AM - ACHS BG - Adjust to 12U in AM and titrate up #HTN - Continue home amlodipine and lisinopril #Hx of Asthma - prn breathing treatment #HLD - Continue atorvastatin #Hx of Thyroid Cancer - currently in remission #Hx of Cervical Cancer Full Code Heparin sq NPO midnight Time spent is 75 minutes with and additional 25 minutes with counseling and care coordination. D/w Nurse and consultants. Time of note does not reflect time of encounter. Brandy James M.D. Jun 13, 2020 18:59
[2020-06-13 19:15] VITALS: BP 126/83
[2020-06-13] MEDS: Morphine Sulfate 4mg/ml Inj (IV USE ONLY) IVP PRN (21:15)
[2020-06-13 21:55] VITALS: BP 110/79
[2020-06-14] VITALS (7 sets, daily range): BP systolic 109–155; BP diastolic 79–103
[2020-06-14] MEDS: Morphine Sulfate 4mg/ml Inj (IV USE ONLY) IVP PRN ×4 (03:25→21:05)
[2020-06-14] MEDS ORDERED: Levemir Flexpen SUBQ SCH (06:30)
[2020-06-14 08:25] LABS: BASOPHILS % (AUTO) 2.1 % (0.0-2.0); EOSINOPHILS % (AUTO) 9.6 % (0.0-3.0); HEMATOCRIT 44.5 % (37.0-47.0); HEMOGLOBIN 14.9 G/DL (12.0-16.0); LYMPHOCYTES % (AUTO) 51.1 % (20.0-45.0); MEAN CORPUSCULAR VOLUME 82 FL (80-99); MONOCYTES % (AUTO) 8.3 % (1.0-10.0); NEUTROPHILS % (AUTO) 28.9 % (45.0-75.0); PLATELET COUNT 231 K/UL (150-450); RED BLOOD COUNT 5.43 M/UL (4.20-5.40); RED CELL DISTRIBUTION WIDTH 14.8 % (11.6-14.8); WHITE BLOOD COUNT 5.1 K/UL (4.8-10.8)
[2020-06-14 09:00] LABS: ANION GAP 7 mmol/L (5-15); BLOOD UREA NITROGEN 13 mg/dL (7-18); CALCIUM 8.5 MG/DL (8.5-10.1); CARBON DIOXIDE 29 MMOL/L (21-32); CHLORIDE 101 MMOL/L (98-107); CREATININE 0.9 MG/DL (0.55-1.30); POTASSIUM 3.9 MMOL/L (3.5-5.1); SODIUM 137 MMOL/L (136-145)
[2020-06-14] MEDS: Lisinopril 20mg tab ORAL SCH (09:25)
[2020-06-14 09:50] LABS: APPEARANCE,URINE CLEAR; BILIRUBIN, URINE NEGATIVE (NEGATIVE); COLOR,URINE PALE YELLOW; GLUCOSE, URINE (UA) 4+ (NEGATIVE); KETONES,URINE NEGATIVE (NEGATIVE); LEUKOCYTE ESTERASE ,URINE NEGATIVE (NEGATIVE); NITRITE,URINE NEGATIVE (NEGATIVE); PH,URINE 6 (4.5-8.0); PROTEIN,URINE NEGATIVE (NEGATIVE); UROBILINOGEN,URINE 1 MG/DL (0.0-1.0)
--- NOTE | 2020-06-14 16:20 | General Progress Note ---
Subjective Date patient seen: Jun 14, 2020 Time patient seen: 08:29 Constitutional: Denies: no symptoms, chills, diaphoresis, fever, malaise, weakness, other HEENT: Denies: no symptoms, eye pain, blurred vision, tearing, double vision, ear pain, ear discharge, nose pain, nose congestion, throat pain, throat swelling, mouth pain, mouth swelling, other Cardiovascular: Reports: chest pain Respiratory: Denies: no symptoms, cough, orthopnea, shortness of breath, SOB with excertion, SOB at rest, sputum, stridor, wheezing, other Gastrointestinal/Abdominal: Denies: no symptoms, abdomen distended, abdominal pain, black stools, tarry stools, blood in stool, constipated, diarrhea, difficulty swallowing, nausea, poor appetite, poor fluid intake, rectal bleeding, vomiting, other Genitourinary: Denies: no symptoms, burning, discharge, frequency, flank pain, hematuria, incontinence, pain, urgency, other Neurologic/Psychiatric: Denies: no symptoms, anxiety, depressed, emotional problems, headache, numbness, paresthesia, pre-existing deficit, seizure, tingling, tremors, weakness, other Endocrine: Denies: no symptoms, excessive sweating, flushing, intolerance to cold, intolerance to heat, increased hunger, increased thirst, increased urine, unexplained weight gain, unexplained weight loss, other Hematologic/Lymphatic: Denies: no symptoms, anemia, easy bleeding, easy bruising, other Allergies: Coded Allergies: PENICILLINS (Unverified Allergy, Unknown, 12/04/14) Subjective NAEO VSS Complaints of left shoulder and pain in axilla and chest that is resolving Troponin x3 negative Complaints of burning/itching with urination, thinks it is a yeast infection Awaiting evaluation with cardiology Objective Last 24 Hour Vital Signs Date Time Temp Pulse Resp B/P (MAP) Pulse Ox O2 Delivery O2 Flow Rate FiO2 06/14/20 12:00 89 06/14/20 12:00 97.7 83 18 149/103 (118) 100 06/14/20 09:25 78 155/90 06/14/20 09:25 155/90 06/14/20 09:00 Room Air 06/14/20 08:00 97.1 78 16 140/95 (110) 98 06/14/20 08:00 79 06/14/20 04:00 97.8 78 16 155/90 (111) 99 06/14/20 03:58 Room Air 06/14/20 02:53 88 06/14/20 02:45 97.8 17 147/95 (112) 97 06/14/20 02:41 98.0 70 16 128/80 100 Room Air 06/14/20 00:36 98.2 74 16 116/81 99 Room Air 99 06/13/20 21:55 98.2 87 16 110/79 99 Room Air 99 06/13/20 21:45 98.2 06/13/20 19:15 96 16 126/83 99 Room Air 06/13/20 18:58 98.2 06/13/20 18:01 98.2 06/13/20 17:30 98.2 89 16 134/103 99 Room Air Intake and Output 06/13/20 06/14/20 19:00 07:00 Intake Total 0 ml Balance 0 ml Intake Oral 0 ml # Voids 1 Laboratory Tests 06/13/20 16:26: POC Whole Blood Glucose 284H 06/13/20 19:02: Troponin I 0.003 06/13/20 19:41: Urine Opiates Screen PositiveH, Urine Barbiturates Screen Negative, Phencyclidine (PCP) Screen Negative, Urine Amphetamines Screen Negative, Urine Benzodiazepines Screen Negative, Urine Cocaine Screen Negative, Urine Marijuana (THC) Screen PositiveH 06/14/20 06:08: POC Whole Blood Glucose 277H 06/14/20 06:47: White Blood Count 5.1, Red Blood Count 5.43H, Hemoglobin 14.9, Hematocrit 44.5, Mean Corpuscular Volume 82, Mean Corpuscular Hemoglobin 27.5, Mean Corpuscular Hemoglobin Concent 33.5, Red Cell Distribution Width 14.8, Platelet Count 231, Mean Platelet Volume 12.3H, Neutrophils (%) (Auto) 28.9L, Lymphocytes (%) (Auto) 51.1H, Monocytes (%) (Auto) 8.3, Eosinophils (%) (Auto) 9.6H, Basophils (%) (Auto) 2.1H, Sodium Level 137, Potassium Level 3.9, Chloride Level 101, Carbon Dioxide Level 29, Anion Gap 7, Blood Urea Nitrogen 13, Creatinine 0.9, Estimat Glomerular Filtration Rate > 60, Glucose Level 272#H, Hemoglobin A1c 10.9H, Calcium Level 8.5, Troponin I 0.002 06/14/20 09:30: Urine Color Pale yellow, Urine Appearance Clear, Urine pH 6, Urine Specific [place] 1.020, Urine Protein Negative, Urine Glucose (UA) 4+H, Urine Ketones Negative, Urine Blood Negative, Urine Nitrite Negative, Urine Bilirubin Negative, Urine Urobilinogen 1H, Urine Leukocyte Esterase Negative 06/14/20 11:20: POC Whole Blood Glucose 251H Height (Feet): 5 Height (Inches): 3.00 Weight (Pounds): 200 General Appearance: no apparent distress, alert EENT: PERRL/EOMI Neck: supple Cardiovascular: normal rate, regular rhythm Respiratory/Chest: lungs clear Abdomen: non tender, soft Extremities: normal range of motion 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 #Chest Pain #R/o ACS RF - , female, dm2 - Chest pain resolving - CTA C/a/p - No PE, No Aortic aneurysm or dissection - EKG - No ST-changes noted at this time - S/p Nitro x1 and Morphine - Aspirin administered - Continue Lisinopril and Statin - Will consider possible stress test in patient - Trop negative x3 - EKG prn for chest pain - Keep K>4 and Mag >2 - Cardiology Consult #Dysuria - UA no pyuria - likely yeast infection - Fluconazole x1 #DM2 - Insulin dependent DM2 - Takes 26U of Long acting insulin in AM - ACHS BG - Adjust to 20U in AM and titrate up - 5U with meals and iSS #HTN - Continue home amlodipine and lisinopril #Hx of Asthma - prn breathing treatment #HLD - Continue atorvastatin #Hx of Thyroid Cancer - currently in remission #Hx of Cervical Cancer Full Code Heparin sq Carb consistent diet Time spent is 35 minutes with and additional 18 minutes with counseling and care coordination. D/w Nurse and consultants. Time of note does not reflect time of encounter. Brandy James M.D. Jun 14, 2020 16:20
[2020-06-14] MEDS: NovoLOG Insulin Flexpen SUBQ SCH ×3 (16:59→20:52)
[2020-06-14] MEDS ORDERED: Fluconazole 150mg tab ORAL SCH (18:00)
--- NOTE | 2020-06-14 18:49 | Consultation ---
History of Present Illness General Date patient seen: Jun 14, 2020 Time patient seen: 18:46 Chief Complaint: Chest Pain Present Illness HPI 49F with PMhx of Insulin dependent DM2, HTN, and GERD presents with chest pain. Patient states that her symptoms began this morning and the pain worsened. She initially rated the pain as a 10/10 with pain starting in the neck and radiating into left shoulder and left axilla. She is complaining of pain in her chest that she now rates as a 7/10. She characterizes the pain as sharp. She denies any fever, chills, n/v or change in bowel movements. She expresses some symptoms of shortness of breath. Lives with her kids. Denies tobacco use. Drinks hard liquor/wine 1x/week. Denies any other recreational drug use Allergies: Coded Allergies: PENICILLINS (Unverified Allergy, Unknown, 12/04/14) Medication History Scheduled Amlodipine Besylate (Norvasc), 10 MG ORAL DAILY Clindamycin Hcl* (Clindamycin Hcl*), 450 MG ORAL TID Dicyclomine Hcl* (Dicyclomine Hcl*), 10 MG ORAL QID Famotidine* (Pepcid 20mg tablet*), 20 MG ORAL DAILY Ibuprofen (Motrin), 600 MG ORAL THREE TIMES A DAY Lactulose (Lactulose*), 15 ML ORAL TID Lisinopril* (Lisinopril*), 40 MG ORAL DAILY, (Reported) Metformin Hcl* (Metformin Hcl*), 500 MG ORAL TWICE A DAY Prednisone* (Prednisone*), 40 MG ORAL DAILY Scheduled PRN Hydrocodone Bit/Acetaminophen 5-325* ([place] 5-325*), 1 TAB ORAL Q6H PRN for For Pain Ondansetron (Zofran), 4 MG ORAL Q6H PRN for Nausea & Vomiting Miscellaneous Medications [insulin], (Reported) Patient History Healthcare decision maker Resuscitation status Advanced Directive on File Review of Systems Constitutional: Reports: no symptoms Eye: Reports: no symptoms ENT: Reports: no symptoms Respiratory: Reports: no symptoms Cardiovascular: Reports: chest pain Gastrointestinal: Reports: no symptoms Genitourinary: Reports: no symptoms Musculoskeletal: Reports: no symptoms Skin: Reports: no symptoms Psychiatric: Reports: no symptoms Neurological: Reports: no symptoms Endocrine: Reports: no symptoms Hematologic/Lymphatic: Reports: no symptoms Physical Exam General Appearance: no apparent distress, alert Lines, tubes and drains: peripheral HEENT: normocephalic, atraumatic, anicteric, mucous membranes moist, PERRL Neck: non-tender, normal alignment, supple, normal inspection Respiratory/Chest: chest wall non-tender, lungs clear, normal breath sounds Cardiovascular/Chest: normal peripheral pulses, normal rate, regular rhythm Abdomen: normal bowel sounds, non tender, soft, no organomegaly Extremities: normal range of motion, non-tender, normal inspection Skin Exam: normal pigmentation, warm/dry 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, no motor/sensory deficits Last 24 Hour Vital Signs Date Time Temp Pulse Resp B/P (MAP) Pulse Ox O2 Delivery O2 Flow Rate FiO2 06/14/20 16:00 83 06/14/20 16:00 97.1 89 18 134/90 (105) 98 06/14/20 12:00 89 06/14/20 12:00 97.7 83 18 149/103 (118) 100 06/14/20 09:25 78 155/90 06/14/20 09:25 155/90 06/14/20 09:00 Room Air 06/14/20 08:00 97.1 78 16 140/95 (110) 98 06/14/20 08:00 79 06/14/20 04:00 97.8 78 16 155/90 (111) 99 06/14/20 03:58 Room Air 06/14/20 02:53 88 06/14/20 02:45 97.8 17 147/95 (112) 97 06/14/20 02:41 98.0 70 16 128/80 100 Room Air 06/14/20 00:36 98.2 74 16 116/81 99 Room Air 99 06/13/20 21:55 98.2 87 16 110/79 99 Room Air 99 06/13/20 21:45 98.2 06/13/20 19:15 96 16 126/83 99 Room Air 06/13/20 18:58 98.2 Intake and Output 06/13/20 06/14/20 19:00 07:00 Intake Total 0 ml Balance 0 ml Intake Oral 0 ml # Voids 1 Laboratory Tests Test 06/13/20 19:02 06/13/20 19:41 06/14/20 06:08 06/14/20 06:47 Troponin I 0.003 ng/mL (0.000-0.056) 0.002 ng/mL (0.000-0.056) Urine Opiates Screen Positive (NEGATIVE) H Urine Barbiturates Screen Negative (NEGATIVE) Phencyclidine (PCP) Screen Negative (NEGATIVE) Urine Amphetamines Screen Negative (NEGATIVE) Urine Benzodiazepines Screen Negative (NEGATIVE) Urine Cocaine Screen Negative (NEGATIVE) Urine Marijuana (THC) Screen Positive (NEGATIVE) H POC Whole Blood Glucose 277 MG/DL (74-106) H White Blood Count 5.1 K/UL (4.8-10.8) Red Blood Count 5.43 M/UL (4.20-5.40) H Hemoglobin 14.9 G/DL (12.0-16.0) Hematocrit 44.5 % (37.0-47.0) Mean Corpuscular Volume 82 FL (80-99) Mean Corpuscular Hemoglobin 27.5 PG (27.0-31.0) Mean Corpuscular Hemoglobin Concent 33.5 G/DL (32.0-36.0) Red Cell Distribution Width 14.8 % (11.6-14.8) Platelet Count 231 K/UL (150-450) Mean Platelet Volume 12.3 FL (6.5-10.1) H Neutrophils (%) (Auto) 28.9 % (45.0-75.0) L Lymphocytes (%) (Auto) 51.1 % (20.0-45.0) H Monocytes (%) (Auto) 8.3 % (1.0-10.0) Eosinophils (%) (Auto) 9.6 % (0.0-3.0) H Basophils (%) (Auto) 2.1 % (0.0-2.0) H Sodium Level 137 MMOL/L (136-145) Potassium Level 3.9 MMOL/L (3.5-5.1) Chloride Level 101 MMOL/L (98-107) Carbon Dioxide Level 29 MMOL/L (21-32) Anion Gap 7 mmol/L (5-15) Blood Urea Nitrogen 13 mg/dL (7-18) Creatinine 0.9 MG/DL (0.55-1.30) Estimat Glomerular Filtration Rate > 60 mL/min (>60) Glucose Level 272 MG/DL (74-106) #H Hemoglobin A1c 10.9 % (4.3-6.0) H Calcium Level 8.5 MG/DL (8.5-10.1) Test 06/14/20 09:30 06/14/20 11:20 06/14/20 16:53 Urine Color Pale yellow Urine Appearance Clear Urine pH 6 (4.5-8.0) Urine Specific [place] 1.020 (1.005-1.035) Urine Protein Negative (NEGATIVE) Urine Glucose (UA) 4+ (NEGATIVE) H Urine Ketones Negative (NEGATIVE) Urine Blood Negative (NEGATIVE) Urine Nitrite Negative (NEGATIVE) Urine Bilirubin Negative (NEGATIVE) Urine Urobilinogen 1 MG/DL (0.0-1.0) H Urine Leukocyte Esterase Negative (NEGATIVE) POC Whole Blood Glucose 251 MG/DL (74-106) H Pending Height (Feet): 5 Height (Inches): 3.00 Weight (Pounds): 200 Medications Current Medications Medications (Trade) Dose Ordered Sig/Mando Route PRN Reason Start Time Stop Time Status Last Admin Dose Admin Amlodipine Besylate (Norvasc) 10 mg DAILY ORAL 06/14/20 09:00 07/14/20 08:59 06/14/20 09:25 Dextrose (Dextrose 50%) 25 ml Q30M PRN IV Hypoglycemia 06/14/20 12:45 09/12/20 12:44 Dextrose (Dextrose 50%) 50 ml Q30M PRN IV Hypoglycemia 06/14/20 12:45 09/12/20 12:44 Famotidine (Pepcid) 20 mg DAILY ORAL 06/14/20 09:00 09/12/20 08:59 06/14/20 09:25 Fluconazole (Diflucan) 150 mg ONCE ORAL 06/14/20 18:00 06/14/20 20:00 06/14/20 18:09 Insulin Aspart (NovoLOG) BEFORE MEALS AND HS SUBQ 06/14/20 16:30 09/12/20 16:29 06/14/20 16:59 Insulin Aspart (NovoLOG) 5 units NOVOTIAC SUBQ 06/14/20 16:50 09/12/20 16:49 06/14/20 17:06 Insulin Detemir (Levemir) 20 units BEFORE BREAKFAST SUBQ 06/15/20 06:30 3/15/21 06:29 Lisinopril (PriniviL) 40 mg DAILY ORAL 06/14/20 09:00 07/14/20 08:59 06/14/20 09:25 Morphine Sulfate (Morphine Sulfate) 4 mg Q6H PRN IVP Prn Chest Pain 06/13/20 21:15 06/20/20 21:14 06/14/20 15:01 Nitroglycerin (Ntg) 0.4 mg Q5M PRN SL Prn Chest Pain 06/13/20 13:45 07/13/20 13:44 06/13/20 13:52 Assessment/Plan Status: stable Assessment/Plan: Chest pain -Will arrange stress echo to evaluate for ischemia -PTT is low risk -Nitro prn -Serial EKG/Troponin/Telemetry -Continue lisinopril/norvasc for HTN -DASH diet Ollie Dos Santos MD Jun 14, 2020 18:49
[2020-06-15] VITALS: BP 116/66
[2020-06-15] MEDS: Morphine Sulfate 4mg/ml Inj (IV USE ONLY) IVP PRN ×2 (03:40→09:54)
[2020-06-15 04:00] VITALS: BP 121/88
[2020-06-15] MEDS: NovoLOG Insulin Flexpen SUBQ SCH ×7 (05:58→20:13)
[2020-06-15] MEDS ORDERED: Levemir Flexpen SUBQ SCH (06:30)
[2020-06-15] MEDS: Nitroglycerin Subl 0.4mg tab SL PRN (06:51)
[2020-06-15 08:00] VITALS: BP 116/83
[2020-06-15] MEDS: Lisinopril 20mg tab ORAL SCH (09:00)
[2020-06-15 10:21] LABS: BASOPHILS % (AUTO) 1.9 % (0.0-2.0); EOSINOPHILS % (AUTO) 6.1 % (0.0-3.0); HEMOGLOBIN 16.9 G/DL (12.0-16.0); LYMPHOCYTES % (AUTO) 32.5 % (20.0-45.0); MEAN CORPUSCULAR VOLUME 82 FL (80-99); MONOCYTES % (AUTO) 6.7 % (1.0-10.0); NEUTROPHILS % (AUTO) 52.8 % (45.0-75.0); PLATELET COUNT 236 K/UL (150-450); RED CELL DISTRIBUTION WIDTH 15.1 % (11.6-14.8)
[2020-06-15 10:36] LABS: ANION GAP 10 mmol/L (5-15); BLOOD UREA NITROGEN 18 mg/dL (7-18); CALCIUM 9.2 MG/DL (8.5-10.1); CARBON DIOXIDE 28 MMOL/L (21-32); CHLORIDE 99 MMOL/L (98-107); PHOSPHORUS 3.9 MG/DL (2.5-4.9); POTASSIUM 3.7 MMOL/L (3.5-5.1); SODIUM 137 MMOL/L (136-145)
[2020-06-15 12:00] VITALS: BP 125/85
[2020-06-15] MEDS ORDERED: Heparin 5000 units/ml inj SUBQ SCH (14:00)
--- NOTE | 2020-06-15 15:12 | Diagnostic Imaging Report ---
Indication: Right neck pain and mass Technique: Grayscale and duplex images of the thyroid Comparison: Neck CT dated 07/23/2019, prior sonogram dated 03/11/2015 Findings: Right thyroid lobe measures 5.4 cm length x 2.1 cm AP. There is some residual tissue on the left, measures 2.2 cm length x 0.8 cm AP. 6 Again demonstrated is diffuse heterogeneity and multiple nodularity of the right thyroid lobe. Nodules are confluent and discrete nodules are difficult to isolate, although the largest discernible nodule again measures approximately 2 cm in diameter. The appearance of the left thyroid remnant is similar to the prior study. . Impression: Enlarged multinodular right thyroid lobe, appearance similar to prior study on 03/11/2015. Small left thyroid remnant, appears similar to previous exam
[2020-06-15 16:00] VITALS: BP 100/68
--- NOTE | 2020-06-15 17:56 | General Progress Note ---
Subjective Allergies: Coded Allergies: PENICILLINS (Unverified Allergy, Unknown, 12/04/14) Subjective Chart reviewed. patient admitted with atypical chest pain, left side, radiation to left shoulder. Also with cervical spine pain. This is where pain started and has now progressed to left shoulder. Has dyspnea on exertion but arti not worse with exertion. Also with h/o goiter s/p thyroidectomy many years ago. Told was benign. Never followed up. Right side of neck with enlarged gland. Nontender. H/o cervical cancer as well s/p xrt, chemo, and hysterectomy. Now in remission. Stress test positive. Needs transfer to OSH for cardiac cath. Review of systems: Constitutional: Denies: chills, diaphoresis, fever, malaise, weakness, other HEENT: Denies: eye pain, blurred vision, tearing, double vision, ear pain, ear discharge, nose pain, nose congestion, throat pain, throat swelling, mouth pain, mouth swelling, Cardiovascular: Denies: chest pain, edema, lightheadedness, palpitations, syncope, Respiratory: Denies: cough, orthopnea, shortness of breath, SOB with excertion, SOB at rest, sputum, stridor, wheezing, other Gastrointestinal/Abdominal: Denies: abdomen distended, abdominal pain, black stools, tarry stools, blood in stool, constipated, diarrhea, difficulty swallowing, nausea, poor appetite, poor fluid intake, rectal bleeding, vomiting, other Genitourinary: Denies: burning, discharge, frequency, flank pain, hematuria, incontinence, pain, urgency, other Neurologic/Psychiatric: Denies: anxiety, depressed, emotional problems, headache, numbness, paresthesia, pre-existing deficit, seizure, tingling, tremors, weakness, other Endocrine: Denies: excessive sweating, flushing, intolerance to cold, int olerance to heat, increased hunger, increased thirst, increased urine, unexplained weight gain, unexplained weight loss, other MSK: denies joint pains, swelling, stiffness Hematologic/Lymphatic: Denies: anemia, easy bleeding, easy bruising, other Objective Last 24 Hour Vital Signs Date Time Temp Pulse Resp B/P (MAP) Pulse Ox O2 Delivery O2 Flow Rate FiO2 06/15/20 12:00 98.7 90 20 125/85 (98) 96 12/15/20 12:00 102 06/15/20 09:16 100 116/83 06/15/20 09:00 Room Air 06/15/20 09:00 116/83 06/15/20 08:00 98.2 102 18 116/83 (94) 98 06/15/20 08:00 94 06/15/20 06:51 121/88 06/15/20 04:00 98.3 90 16 121/88 (99) 98 06/15/20 04:00 89 06/15/20 00:00 98.1 90 16 116/66 (83) 94 06/15/20 00:00 91 06/14/20 21:00 Room Air 06/14/20 20:00 98.2 88 18 109/79 (89) 94 06/14/20 20:00 97 Intake and Output 06/14/20 06/15/20 19:00 07:00 Intake Total 480 ml 500 ml Balance 480 ml 500 ml Intake Oral 480 ml 500 ml # Voids 4 3 Laboratory Tests 06/15/20 10:00: White Blood Count 7.0, Red Blood Count 6.30H, Hemoglobin 16.9H, Hematocrit 52.0H , Mean Corpuscular Volume 82, Mean Corpuscular Hemoglobin 26.9L, Mean Corpuscular Hemoglobin Concent 32.6, Red Cell Distribution Width 15.1H, Platelet Count 236, Mean Platelet Volume 10.4H, Neutrophils (%) (Auto) 52.8, Lymphocytes (%) (Auto) 32.5, Monocytes (%) (Auto) 6.7, Eosinophils (%) (Auto) 6.1H, Basophils (%) (Auto) 1.9, Sodium Level 137, Potassium Level 3.7, Chloride Level 99, Carbon Dioxide Level 28, Anion Gap 10, Blood Urea Nitrogen 18, Creatinine 1.0, Estimat Glomerular Filtration Rate > 60, Glucose Level 178H, Calcium Level 9.2, Phosphorus Level 3.9, Magnesium Level 1.9, Thyroid Stimulating Hormone (T SH) 1.182, Free Thyroxine 1.00 06/15/20 16:48: POC Whole Blood Glucose 269H Height (Feet): 5 Height (Inches): 3.00 Weight (Pounds): 200 Objective General: WDWN female in NAD, A&O x 4 HEENT: Normocephalic cephalic atraumatic, pupils equal round reactive to light and accommodation, nares patent and no symmetrical, no tonsillar exudates, mucous membranes moist Neck: Right sided neck mass 2cm x 2cm. Nontender to palpation CV: Regular rate regular rhythm, no murmurs, rubs, or gallops Pulm: Lungs clear to auscultation bilaterally. No wheezes, rhonchi, or rales GI: Soft, nontender, nondistended, bowel sounds present Neuro: CN 2-12 intact bilaterally, no focal signs. Ext: No lower extremity edema bilaterally Skin: no rashes lesions or ulcers Msk: Joints symmetrical in upper extremity and lower extremity bilaterally, no joint swelling. TTP in Cervical spine and lateral muscles Lymph: No lymphadenopathy in upper extremity and lower extremity Assessment/Plan Status: stable Assessment/Plan: #Chest Pain #R/o ACS RF - , female, dm2 > Dobutamine stress test positive - Awaiting transfer to OSH ([facility]). Dr. Mcgee to accept. Warm handoff completed - Chest pain resolving - CTA C/a/p - No PE, No Aortic aneurysm or dissection - EKG - No ST-changes noted at this time - S/p Nitro x1 and Morphine - Aspirin administered - Continue Lisinopril and Statin - Trop negative x3 - EKG prn for chest pain - Keep K>4 and Mag >2 - Cardiology Consult : Dr. Dos Santos #Right side goiter #s/p thyroidectomy - lost to follow up - repeat Thyroid US. Will need Endocrine consult #Neck pain #suspect cervical radiculopathy > No bowel or bladder symptoms. No saddle anesthesia. No weakness - neurology consult: Dr. Gracia -> MRI C spine> Patient unable to tolerate due to anxiety. Cannot give ativan due to hypotension after stress test. #h/o cervical cancer - lost to follow up - outpatient follow up with oncology - patient understands importance of follow up #Dysuria - UA no pyuria - likely yeast infection - Fluconazole x1 #DM2 - Insulin dependent DM2 - Takes 26U of Long acting insulin in AM - ACHS BG - Adjust to 20U in AM and titrate up - 5U with meals and iSS #HTN - Continue home amlodipine and lisinopril #Hx of Asthma - prn breathing treatment #HLD - Continue atorvastatin #Hx of Thyroid Cancer - currently in remission #Hx of Cervical Cancer Full Code Heparin sq Carb consistent diet Time spent is 38 minutes with and additional 20 minutes with counseling and care coordination. D/w Nurse and consultants. I spent an additional 32 minutes of further face to face time on counseling and care coordination in addition to usual care as detailed above. Discussed plan of care including stress test, transfer for cardiac cath, MRI, neuro consult, etc. Multiple questions. All questions answered. Time of note does not reflect time of encounter. Matt Hernández D.O. Jun 15, 2020 17:55
[2020-06-15] MEDS ORDERED: Morphine Sulfate 2mg/ml Inj(IV/IM USE ONLY) IVP PRN (17:59)
[2020-06-15] MEDS ORDERED: LEVEMIR FL100 UNIT/1 SUBQ (19:57)
[2020-06-15] MEDS ORDERED: NOVOLOG100 UNITS1 SUBQ (19:57)
[2020-06-15 20:00] VITALS: BP 125/90
--- NOTE | 2020-06-15 20:06 | Discharge Instructions ---
Discharge Instructions Discharge Instructions Special Instructions Follow up with Endocrinology regarding your thyroid, Oncology regarding your cancer history, Neurology, Cardiology For Congestive Heart Failure Reminder Report to your physician any weight gain of 5 pounds or more in one week. Matt Hernández D.O. Jun 15, 2020 20:06
--- NOTE | 2020-06-15 20:08 | Discharge Summary ---
Discharge Summary Hospital Course Date of Admission Jun 13, 2020 at 15:10 Date of Discharge Admitting Diagnosis CHEST PAIN HPI Elen Leung is a 49 year old female who was admitted on Jun 13, 2020 at 15:10 for Chest Pain Consultations Cardiology, neurology Procedures Dobutamine stress test Hospital Course HPI and hospital course: This is a 49F with PMhx of Insulin dependent DM2, HTN, and GERD who presented with chest pain. Patient states that her symptoms began the morning of admission and the pain worsened. She initially rated the pain as a 10/10 with pain starting in the neck and radiating into left shoulder and left axilla. She is complaining of pain in her chest that she now rates as a 7/10. She characterizes the pain as sharp. The patient was admitted for chest pain rule out ACS. She Was seen by cardiology who recommended dobutamine stress test. The patient underwent stress test which was positive. She was then transferred to [facility] for Cardiac cath. Incidentally patient also with right neck mass. She has a history of thyroid mass which was resected (left side), many years ago. Since then she has been lost to follow up. Right side has enlarged. Ultrasound showed enlarged multinodular right thyroid lobe similar to study in 03/2015. She also c/o neck pain with possible radiculopathy into left shoulder. MRI ordered but patient unable to tolerate due to clausterphobia. She was transferred to [facility] prior to obtaining MRI again with light sedation. This was all signed out to the accepting physician Dr. Mcgee. The patient needs endocrinology follow up Additional PMhx of Thyroid cancer s/p surgical intervention and cervical cancer. #Chest Pain #R/o ACS RF - , female, dm2 > Dobutamine stress test positive #Right side goiter #s/p thyroidectomy #Neck pain #suspect cervical radiculopathy > No bowel or bladder symptoms. No saddle anesthesia. No weakness - neurology consult: Dr. Gracia -> MRI C spine> Patient unable to tolerate due to anxiety. Cannot give ativan due to hypotension after stress test. #h/o cervical cancer - lost to follow up - outpatient follow up with oncology #Dysuria: resolved #DM2 #HTN #Hx of Asthma #HLD #Hx of Thyroid Cancer - currently in remission #Hx of Cervical Cancer Full Code Heparin sq Carb consistent diet Discharge Condition: stable Disposition: [facility] Activity: Activity as tolerated Diet: Cardiac Follow-up: With PMD in 1 week, endocrinology Special instructions: Return to nearest emergency room or call 911 for any life threatening medical conditions. Return precautions provided. MIPS ([employer]-based Incentive Payment System) Applicable CPT: 72567, 10416 CHECK ALL THAT ARE MET: [] Measure #5 (CHF): All ages. Prescribe TRINA/ARB upon discharge for patients with left ventricular systolic dysfunction. If not, the reason is clearly documented in the medical chart. [] Measure #8 (CHF): All ages. Prescribe a beta reggie upon discharge for patients with left ventricular systolic dysfunction. If not, the reason is clearly documented in the medical chart. [x] Measure #47: Advance care plan or surrogate decision maker documented in the medical record. [x] Measure #130 The provider has documented, updated, or reviewed the patients current medication list and has documented it in the patients note. [x] Measure #374 (All): Send report to referring provider. [] Measure #407(Sepsis due to MSSA bacteremia): Age 18+ Patient treated with a beta-lactam antibiotic (Nafcillin, Oxacillin or Cefazolin) as definitive therapy. A total of 45 minutes was spent on this patient's discharge including but not limited to examining the patient, discharge medication reconciliation, prescriptions, discharge instructions, coordination of follow-up, and docum enting the discharge summary. Discharge Discharge Vital Signs Last Vital Signs Date Time Temp Pulse Resp B/P (MAP) Pulse Ox O2 Delivery O2 Flow Rate FiO2 06/15/20 16:00 100 06/15/20 16:00 99.3 20 100/68 (79) 98 06/15/20 09:00 Room Air 06/14/20 00:36 99 Discharge Disposition Patient was discharged to [facility] Discharge Diagnoses: (1) Chest pain (2) DM (diabetes mellitus) (3) HTN (hypertension) (4) H/O fracture of right hip (5) Spondylosis of cervical spine (6) Radiculopathy of cervical spine (7) ACS (acute coronary syndrome) Matt Hernández D.O. Jun 15, 2020 20:08
--- NOTE | 2020-06-15 20:25 | Neurology Progress Note ---
Interim History Interim History Interim History 49F with PMhx of Insulin dependent DM2, HTN, and GERD presents with chest pain. Patient states that her symptoms began this morning and the pain worsened. She initially rated the pain as a 10/10 with pain starting in the neck and radiating into left shoulder and left axilla. She is complaining of pain in her chest that she now rates as a 7/10. She characterizes the pain as sharp. She denies any fever, chills, n/v or change in bowel movements. She expresses some symptoms of shortness of breath. Lives with her kids. Denies tobacco use. Drinks hard liquor/wine 1x/week. Denies any other recreational drug use Radiating pain to left arm, mri pending cardiac cath pending Objective Physical Exam Last Vital Signs Date Time Temp Pulse Resp B/P (MAP) Pulse Ox O2 Delivery O2 Flow Rate FiO2 06/15/20 16:00 100 06/15/20 16:00 99.3 20 100/68 (79) 98 06/15/20 09:00 Room Air 06/14/20 00:36 99 Laboratory Tests Test 06/15/20 10:00 06/15/20 16:48 White Blood Count 7.0 K/UL (4.8-10.8) Red Blood Count 6.30 M/UL (4.20-5.40) H Hemoglobin 16.9 G/DL (12.0-16.0) H Hematocrit 52.0 % (37.0-47.0) H Mean Corpuscular Volume 82 FL (80-99) Mean Corpuscular Hemoglobin 26.9 PG (27.0-31.0) L Mean Corpuscular Hemoglobin Concent 32.6 G/DL (32.0-36.0) Red Cell Distribution Width 15.1 % (11.6-14.8) H Platelet Count 236 K/UL (150-450) Mean Platelet Volume 10.4 FL (6.5-10.1) H Neutrophils (%) (Auto) 52.8 % (45.0-75.0) Lymphocytes (%) (Auto) 32.5 % (20.0-45.0) Monocytes (%) (Auto) 6.7 % (1.0-10.0) Eosinophils (%) (Auto) 6.1 % (0.0-3.0) H Basophils (%) (Auto) 1.9 % (0.0-2.0) Sodium Level 137 MMOL/L (136-145) Potassium Level 3.7 MMOL/L (3.5-5.1) Chloride Level 99 MMOL/L (98-107) Carbon Dioxide Level 28 MMOL/L (21-32) Anion Gap 10 mmol/L (5-15) Blood Urea Nitrogen 18 mg/dL (7-18) Creatinine 1.0 MG/DL (0.55-1.30) Estimat Glomerular Filtration Rate > 60 mL/min (>60) Glucose Level 178 MG/DL (74-106) H Calcium Level 9.2 MG/DL (8.5-10.1) Phosphorus Level 3.9 MG/DL (2.5-4.9) Magnesium Level 1.9 MG/DL (1.8-2.4) Thyroid Stimulating Hormone (TSH) 1.182 uiU/mL (0.358-3.740) Free Thyroxine 1.00 NG/DL (0.76-1.46) POC Whole Blood Glucose 269 MG/DL (74-106) H Impression/Recommendations Problems: (1) Chest wall pain (2) Voiding difficulty (3) Voiding difficulty (4) Pain in limb (5) Hip osteoarthritis (6) H/O fracture of right hip (7) Radiculopathy of cervical spine (8) Degenerative disc disease, cervical (9) Spondylosis of cervical spine (10) Diabetes mellitus out of control (11) Proteinuria (12) Anemia (13) cervical myalgia (14) tension headacke (15) Cervical cancer (16) Opiate withdrawal (17) Muscle spasm of back (18) DM (diabetes mellitus) (19) Hip pain (20) Dehydration (21) Postoperative pain (22) UTI (lower urinary tract infection) (23) Pharyngitis (24) Upper respiratory infection (25) Throat pain (26) Acute pharyngitis (27) Diverticulosis (28) Hyperglycemia (29) Abdominal pain (30) Chest pain (31) HTN (hypertension) (32) Chronic pain (33) ACS (acute coronary syndrome) Status: stable Diagnostic Impression ro radiculopathy, mri pending Mandeep Gracia MD Jun 15, 2020 20:25
--- NOTE | 2020-06-15 20:26 | Consultation ---
History of Present Illness General Date patient seen: Jun 14, 2020 Reason for Hospitalization: Chest Pain Present Illness HPI 49F with PMhx of Insulin dependent DM2, HTN, and GERD presents with chest pain. Patient states that her symptoms began this morning and the pain worsened. She initially rated the pain as a 10/10 with pain starting in the neck and radiating into left shoulder and left axilla. She is complaining of pain in her chest that she now rates as a 7/10. She characterizes the pain as sharp. She denies any fever, chills, n/v or change in bowel movements. She expresses some symptoms of shortness of breath. Lives with her kids. Denies tobacco use. Drinks hard liquor/wine 1x/week. Denies any other recreational drug use Allergies: Coded Allergies: PENICILLINS (Unverified Allergy, Unknown, 12/04/14) COVID-19 Screening Contact w/high risk pt: No Recent Travel to affected area: No Experienced COVID-19 symptoms?: No Medication History Scheduled Amlodipine Besylate (Norvasc), 10 MG ORAL DAILY Dicyclomine Hcl* (Dicyclomine Hcl*), 10 MG ORAL QID Famotidine* (Pepcid 20mg tablet*), 20 MG ORAL DAILY Insulin Aspart (Novolog Flexpen), 5 UNITS SUBQ NOVOTIAC Insulin Detemir (Levemir Flexpen), 20 UNITS SUBQ BEFORE BREAKFAST Lisinopril* (Lisinopril*), 40 MG ORAL DAILY, (Reported) Scheduled PRN Hydrocodone Bit/Acetaminophen 5-325* (Henderson 5-325*), 1 TAB ORAL Q6H PRN for For Pain Ondansetron (Zofran), 4 MG ORAL Q6H PRN for Nausea & Vomiting Miscellaneous Medications [insulin], (Reported) Discontinued Medications Clindamycin Hcl* (Clindamycin Hcl*), 450 MG ORAL TID Discontinued Reason: discontinued med Ibuprofen (Motrin), 600 MG ORAL THREE TIMES A DAY Discontinued Reason: MD discontinued med Lactulose (Lactulose*), 15 ML ORAL TID Discontinued Reason: MD discontinued med Metformin Hcl* (Metformin Hcl*), 500 MG ORAL TWICE A DAY Discontinued Reason: MD discontinued med Prednisone* (Prednisone*), 40 MG ORAL DAILY Discontinued Reason: MD discontinued med Patient History Healthcare decision maker Resuscitation status Advanced Directive on File Family History Family History: FH: hypertension Review of Systems Review of Symptoms General ROS: no weight loss or fever Psychological ROS: no depression or mood changes, no memory loss Ophthalmic ROS: no visual changes or eye irritation ENT ROS: no nasal congestion, hearing loss, dizziness Allergy and Immunology ROS: no allergic symptoms or urticaria Hematological and Lymphatic ROS: no swollen glands, unusual bleeding or bruising Endocrine ROS: no polyuria, polydipsia, weight changes, temperature intolerance Respiratory ROS: no cough, shortness of breath, or wheezing Cardiovascular ROS: no chest pain or dyspnea on exertion Gastrointestinal ROS: denies abdominal pain, bright red blood in stool. Musculoskeletal ROS: no myalgias or arthralgias Neurological ROS: no TIA or stroke symptoms Dermatological ROS: no new or changing skin lesions, rashes or pruritis Physical Exam Physical Exam General appearance: alert, cooperative, no distress, appears stated age Head: Normocephalic, without obvious abnormality, atraumatic Eyes: conjunctivae/corneas clear. PERRL, EOM's intact. Fundi benign Throat: Lips, mucosa, and tongue normal. Teeth and gums normal Neck: supple, symmetrical, trachea midline, no adenopathy, thyroid: not enlarged, symmetric, no tenderness/mass/nodules, no carotid bruit and no JVD Lungs: clear to auscultation bilaterally Heart: regular rate and rhythm, S1, S2 normal, no murmur, click, rub or gallop Abdomen: soft, non-tender. Bowel sounds normal. No masses, no organomegaly Extremities: extremities normal, atraumatic, no cyanosis or edema Pulses: 2+ and symmetric Skin: Skin color, texture, turgor normal. No rashes or lesions Neurologic: Grossly normal Last 24 Hour Vital Signs Date Time Temp Pulse Resp B/P (MAP) Pulse Ox O2 Delivery O2 Flow Rate FiO2 06/15/20 16:00 100 06/15/20 16:00 99.3 99 20 100/68 (79) 98 06/15/20 12:00 98.7 90 20 125/85 (98) 96 06/15/20 12:00 102 06/15/20 09:16 100 116/83 06/15/20 09:00 Room Air 06/15/20 09:00 116/83 06/15/20 08:00 98.2 102 18 116/83 (94) 98 06/15/20 08:00 94 06/15/20 06:51 121/88 06/15/20 04:00 98.3 90 16 121/88 (99) 98 06/15/20 04:00 89 06/15/20 00:00 98.1 90 16 116/66 (83) 94 06/15/20 00:00 91 06/14/20 21:00 Room Air Intake and Output 06/14/20 06/15/20 19:00 07:00 Intake Total 480 ml 500 ml Balance 480 ml 500 ml Intake Oral 480 ml 500 ml # Voids 4 3 Laboratory Tests Test 06/15/20 10:00 06/15/20 16:48 White Blood Count 7.0 K/UL (4.8-10.8) Red Blood Count 6.30 M/UL (4.20-5.40) H Hemoglobin 16.9 G/DL (12.0-16.0) H Hematocrit 52.0 % (37.0-47.0) H Mean Corpuscular Volume 82 FL (80-99) Mean Corpuscular Hemoglobin 26.9 PG (27.0-31.0) L Mean Corpuscular Hemoglobin Concent 32.6 G/DL (32.0-36.0) Red Cell Distribution Width 15.1 % (11.6-14.8) H Platelet Count 236 K/UL (150-450) Mean Platelet Volume 10.4 FL (6.5-10.1) H Neutrophils (%) (Auto) 52.8 % (45.0-75.0) Lymphocytes (%) (Auto) 32.5 % (20.0-45.0) Monocytes (%) (Auto) 6.7 % (1.0-10.0) Eosinophils (%) (Auto) 6.1 % (0.0-3.0) H Basophils (%) (Auto) 1.9 % (0.0-2.0) Sodium Level 137 MMOL/L (136-145) Potassium Level 3.7 MMOL/L (3.5-5.1) Chloride Level 99 MMOL/L (98-107) Carbon Dioxide Level 28 MMOL/L (21-32) Anion Gap 10 mmol/L (5-15) Blood Urea Nitrogen 18 mg/dL (7-18) Creatinine 1.0 MG/DL (0.55-1.30) Estimat Glomerular Filtration Rate > 60 mL/min (>60) Glucose Level 178 MG/DL (74-106) H Calcium Level 9.2 MG/DL (8.5-10.1) Phosphorus Level 3.9 MG/DL (2.5-4.9) Magnesium Level 1.9 MG/DL (1.8-2.4) Thyroid Stimulating Hormone (TSH) 1.182 uiU/mL (0.358-3.740) Free Thyroxine 1.00 NG/DL (0.76-1.46) POC Whole Blood Glucose 269 MG/DL (74-106) H Microbiology Date/Time Source Procedure Growth Status 06/15/20 17:00 Nasopharynx SARS-CoV-2 RdRp Gene Assay - Final Complete Height (Feet): 5 Height (Inches): 3.00 Weight (Pounds): 200 Medications Current Medications Medications (Trade) Dose Ordered Sig/Mando Route PRN Reason Start Time Stop Time Status Last Admin Dose Admin Amlodipine Besylate (Norvasc) 10 mg DAILY ORAL 06/14/20 09:00 07/14/20 08:59 06/15/20 09:16 Dextrose (Dextrose 50%) 25 ml Q30M PRN IV Hypoglycemia 06/14/20 12:45 09/12/20 12:44 Dextrose (Dextrose 50%) 50 ml Q30M PRN IV Hypoglycemia 06/14/20 12:45 09/12/20 12:44 Famotidine (Pepcid) 20 mg DAILY ORAL 06/14/20 09:00 09/12/20 08:59 06/15/20 09:16 Heparin Sodium (Porcine) (Heparin 5000 units/ml) 5,000 units EVERY 8 HOURS SUBQ 06/15/20 14:00 07/30/20 13:59 Insulin Aspart (NovoLOG) BEFORE MEALS AND HS SUBQ 06/14/20 16:30 09/12/20 16:29 06/15/20 17:34 Insulin Aspart (NovoLOG) 5 units NOVOTIAC SUBQ 06/14/20 16:50 09/12/20 16:49 06/15/20 17:36 Insulin Detemir (Levemir) 20 units BEFORE BREAKFAST SUBQ 06/15/20 06:30 09/13/20 06:29 06/15/20 05:57 Lisinopril (PriniviL) 40 mg DAILY ORAL 06/14/20 09:00 07/14/20 08:59 06/14/20 09:25 Morphine Sulfate (Morphine Sulfate) 2 mg Q6H PRN IVP Prn Chest Pain 06/15/20 17:59 06/22/20 17:58 06/15/20 20:12 Nitroglycerin (Ntg) 0.4 mg Q5M PRN SL Prn Chest Pain 06/13/20 13:45 07/13/20 13:44 06/15/20 06:51 Assessment/Plan Problem List: (1) Chest wall pain ICD Codes: R07.89 - Other chest pain SNOMED: 201966654 (2) Voiding difficulty ICD Codes: R39.89 - Other symptoms and signs involving the genitourinary system SNOMED: 177440833 (3) Voiding difficulty ICD Codes: R39.89 - Other symptoms and signs involving the genitourinary system SNOMED: 437802684 (4) Pain in limb ICD Codes: M79.609 - Pain in limb SNOMED: 73885901 (5) Hip osteoarthritis ICD Codes: M16.9 - Hip osteoarthritis SNOMED: 880537744 (6) H/O fracture of right hip ICD Codes: Z87.81 - H/O fracture of right hip SNOMED: 370779167 (7) Radiculopathy of cervical spine ICD Codes: M54.12 - Radiculopathy of cervical spine SNOMED: 95283970 (8) Degenerative disc disease, cervical ICD Codes: M50.30 - Degenerative disc disease, cervical SNOMED: 73398939 (9) Spondylosis of cervical spine ICD Codes: M47.812 - Spondylosis of cervical spine SNOMED: 949255775 (10) Diabetes mellitus out of control ICD Codes: E11.65 - Diabetes mellitus out of control SNOMED: 838091000 (11) Proteinuria ICD Codes: R80.9 - Proteinuria SNOMED: 07317967 (12) Anemia ICD Codes: D64.9 - Anemia SNOMED: 785313618 (13) cervical myalgia (14) tension headacke (15) Cervical cancer ICD Codes: C53.9 - Malignant neoplasm of cervix uteri, unspecified SNOMED: 625445397 (16) Opiate withdrawal ICD Codes: F11.23 - Opioid dependence with withdrawal SNOMED: 47756676 (17) Muscle spasm of back ICD Codes: M62.830 - Muscle spasm of back SNOMED: 112056801 (18) DM (diabetes mellitus) ICD Codes: E11.9 - DM (diabetes mellitus) SNOMED: 00546845 (19) Hip pain ICD Codes: M25.559 - Pain in unspecified hip SNOMED: 18835479 (20) Dehydration ICD Codes: E86.0 - Dehydration SNOMED: 14599907 (21) Postoperative pain ICD Codes: G89.18 - Other acute postprocedural pain SNOMED: 354105319 (22) UTI (lower urinary tract infection) ICD Codes: N39.0 - Urinary tract infection, site not specified SNOMED: 0345618 (23) Pharyngitis ICD Codes: J02.9 - Acute pharyngitis, unspecified SNOMED: 040387200 (24) Upper respiratory infection ICD Codes: J06.9 - Acute upper respiratory infection, unspecified SNOMED: 25430901 (25) Throat pain ICD Codes: R07.0 - Pain in throat SNOMED: 813633507 (26) Acute pharyngitis ICD Codes: J02.9 - Acute pharyngitis, unspecified SNOMED: 398703991 (27) Diverticulosis ICD Codes: K57.90 - Diverticulosis of intestine, part unspecified, without perforation or abscess without bleeding SNOMED: 000656842 (28) Hyperglycemia ICD Codes: R73.9 - Hyperglycemia, unspecified SNOMED: 41385512 (29) Abdominal pain ICD Codes: R10.9 - Unspecified abdominal pain SNOMED: 61702627 (30) Chest pain ICD Codes: R07.9 - Chest pain, unspecified SNOMED: 80228120 (31) HTN (hypertension) ICD Codes: I10 - HTN (hypertension) SNOMED: 98477819 (32) Chronic pain ICD Codes: G89.29 - Other chronic pain SNOMED: 10575956 (33) ACS (acute coronary syndrome) ICD Codes: I24.9 - Acute ischemic heart disease, unspecified SNOMED: 724452050 Assessment/Plan: left sided radicular pain chest pain mri cervical emg ncs when stable cardiac garcía ok for heparin [facility] Hospital declaration INPATIENT level of care is warranted for this patient because patient is a 89 year old with who presents with suspicion of . I have a high level of concern because . Patient is at high risk for . Plan of care/treatment include . Patient care is expected to be greater than 2 midnights. OBSERVATION level of care is warranted for this patient. Patient is a 89 year old with who presents with . Patient will be admitted for 1 midnight, but if additional night(s) is/are necessary, patient will be converted to inpatient status for the entire hospitalization Disposition: Once the patient is stable to leave the hospital, I anticipate the patient will likely be discharged to the following environment: I spent 70 minutes on this patient's case, MIPS ([employer]-based Incentive Payment System) Applicable CPT: 05738, 97385 CHECK ALL THAT ARE MET: Measure #5 (CHF): All ages. Prescribe TRINA/ARB upon discharge for patients with left ventricular systolic dysfunction. If not, the reason is clearly documented in the medical chart. Measure #8 (CHF): All ages. Prescribe a beta reggie upon discharge for p atients with left ventricular systolic dysfunction. If not, the reason is clearly documented in the medical chart. Measure #47 Advance care plan or surrogate decision maker documented in the medical record. Measure #130 The provider has documented, updated, or reviewed the patients current medication list and has documented it in the patients note. Measure #374 (All): Send report to referring provider. Measure #407(Sepsis due to MSSA bacteremia): Age 18+ Patient treated with a beta-lactam antibiotic (Nafcillin, Oxacillin or Cefazolin) as definitive therapy. MEDICAL COMPLEXITY High complexity medical decision making (need 2/3 categories) Problem - need 4 points Acute/new problem with new plan for workup (4 points, 1 max) Acute/new problem without additional workup (3 points, 1 max) Unstable chronic problem actively being managed (2 point each, 2 max) Stable chronic problem actively being managed (1 point each, 2 max) Self-limited/transient process (constipation, muscle ache, etc) (1 point each, 2 max) Data - need 4 points Reviewed labs/imaging studies (1 points, 2 max) Independent review of imaging (EKG, xrays, etc) (2 points, 2 max) Discussed case with consult/other MD/RN (2 points, 2 max) High Risk - qualify if have one of the following: Severe exacerbation of acute problem, acute mental status change, IV narcotics, monitoring drug levels (vancomycin, INR, tacrolimus etc) Mandeep Gracia MD Jun 15, 2020 20:26
[2020-06-15] MEDS ORDERED: NS 500ML ONE (20:34)
[2020-06-15] MEDS ORDERED: DOBUTamine 250mg/250ml Premix IV ONE (20:34)
--- NOTE | 2020-06-15 21:28 | Cardiology Progress Note ---
Assessment/Plan Status: stable Assessment/Plan Equivocal stress test with ST depression and chest pain Plan to transfer to [facility] for cardiac cath Nitro prn Aspirin Statin Continue BP medications DASH diet Stable for transfer Subjective Cardiovascular: Reports: no symptoms Respiratory: Reports: no symptoms Gastrointestinal/Abdominal: Reports: no symptoms Genitourinary: Reports: no symptoms Subjective Stress test aborted early due to symptoms and EKG changes, good LV function with hyperdynamic LVEF Plan to transfer to [facility] for cardiac cath Objective Last 24 Hour Vital Signs Date Time Temp Pulse Resp B/P (MAP) Pulse Ox O2 Delivery O2 Flow Rate FiO2 06/15/20 20:00 96.6 92 18 125/90 (102) 98 06/15/20 16:00 100 06/15/20 16:00 99.3 99 20 100/68 (79) 98 06/15/20 12:00 98.7 90 20 125/85 (98) 96 06/15/20 12:00 102 06/15/20 09:16 100 116/83 06/15/20 09:00 Room Air 06/15/20 09:00 116/83 06/15/20 08:00 98.2 102 18 116/83 (94) 98 06/15/20 08:00 94 06/15/20 06:51 121/88 06/15/20 04:00 98.3 90 16 121/88 (99) 98 06/15/20 04:00 89 06/15/20 00:00 98.1 90 16 116/66 (83) 94 06/15/20 00:00 91 General Appearance: no apparent distress, alert EENT: PERRL/EOMI, normal ENT inspection, TMs normal, pharynx normal Neck: non-tender, normal alignment, supple, normal inspection, no JVD Rhythm: NSR Cardiovascular: normal peripheral pulses, normal rate, regular rhythm Respiratory/Chest: chest wall non-tender, lungs clear, normal breath sounds Abdomen: normal bowel sounds, non tender, soft, no organomegaly Extremities: normal range of motion, non-tender, normal inspection, no calf tenderness, no swelling Neurologic: order builder II-XII grossly normal, no motor/sensory deficits Intake and Output 06/14/20 06/15/20 19:00 07:00 Intake Total 480 ml 500 ml Balance 480 ml 500 ml Intake Oral 480 ml 500 ml # Voids 4 3 Laboratory Tests Test 06/15/20 10:00 06/15/20 16:48 White Blood Count 7.0 K/UL (4.8-10.8) Red Blood Count 6.30 M/UL (4.20-5.40) H Hemoglobin 16.9 G/DL (12.0-16.0) H Hematocrit 52.0 % (37.0-47.0) H Mean Corpuscular Volume 82 FL (80-99) Mean Corpuscular Hemoglobin 26.9 PG (27.0-31.0) L Mean Corpuscular Hemoglobin Concent 32.6 G/DL (32.0-36.0) Red Cell Distribution Width 15.1 % (11.6-14.8) H Platelet Count 236 K/UL (150-450) Mean Platelet Volume 10.4 FL (6.5-10.1) H Neutrophils (%) (Auto) 52.8 % (45.0-75.0) Lymphocytes (%) (Auto) 32.5 % (20.0-45.0) Monocytes (%) (Auto) 6.7 % (1.0-10.0) Eosinophils (%) (Auto) 6.1 % (0.0-3.0) H Basophils (%) (Auto) 1.9 % (0.0-2.0) Sodium Level 137 MMOL/L (136-145) Potassium Level 3.7 MMOL/L (3.5-5.1) Chloride Level 99 MMOL/L (98-107) Carbon Dioxide Level 28 MMOL/L (21-32) Anion Gap 10 mmol/L (5-15) Blood Urea Nitrogen 18 mg/dL (7-18) Creatinine 1.0 MG/DL (0.55-1.30) Estimat Glomerular Filtration Rate > 60 mL/min (>60) Glucose Level 178 MG/DL (74-106) H Calcium Level 9.2 MG/DL (8.5-10.1) Phosphorus Level 3.9 MG/DL (2.5-4.9) Magnesium Level 1.9 MG/DL (1.8-2.4) Thyroid Stimulating Hormone (TSH) 1.182 uiU/mL (0.358-3.740) Free Thyroxine 1.00 NG/DL (0.76-1.46) POC Whole Blood Glucose 269 MG/DL (74-106) H Microbiology Date/Time Source Procedure Growth Status 06/15/20 17:00 Nasopharynx SARS-CoV-2 RdRp Gene Assay - Final Complete Ollie Dos Santos MD Jun 15, 2020 21:28
--- NOTE | 2020-06-22 21:09 | Coder Physician Query ---
Clarification is required for compliance, coding accuracy, and to reflect severity of illness for this patient Dear Dr. Hernández Date: 06/22/20 [employer] Compliance Manager/CDS' Name: vika [facility] Hospital Course-- HPI and hospital course: This is a 49F with PMhx of Insulin dependent DM2, HTN, and GERD who presented with chest pain. Patient states that her symptoms began the morning of admission and the pain worsened. She initially rated the pain as a 10/10 with pain starting in the neck and radiating into left shoulder and left axilla. She is complaining of pain in her chest that she now rates as a 7/10. She characterizes the pain as sharp. The patient was admitted for chest pain rule out ACS. She Was seen by cardiology who recommended dobutamine stress test. The patient underwent stress test which was positive. She was then transferred to [facility] for Cardiac cath. Please document the suspected etiology of Chest Pain: [] Acute Coronary Syndrome [] Acute myocardial infarction [] Anxiety [] Cancer [] Pneumonia [] Costochondritis [] Pneumothorax [] GERD/Esophagitis [] Pulmonary embolism [] Other: [] Unable to determine Physician signature Date Please also document in your Progress Notes and/or Discharge Summary and indicate if the condition was present on admission. KAVITHA
== END 2020-06-15 20:35 | DRG 198 ==
LOC: EMR 13:03 → 2E 15:10 → OBSVTOIN 15:10 → EDBEDREQ 16:01 → 2E 06-14 02:35
DX: R07.9 Chest pain, unspecified (principal); K21.9 Gastro-esophageal reflux disease without esophagitis; I24.9 Acute ischemic heart disease, unspecified; I10 Essential (primary) hypertension; E11.9 Type 2 diabetes mellitus without complications; Z88.0 Allergy status to penicillin; Z85.41 Personal history of malignant neoplasm of cervix uteri; J45.909 Unspecified asthma, uncomplicated; E78.5 Hyperlipidemia, unspecified; Z85.850 Personal history of malignant neoplasm of thyroid; E04.9 Nontoxic goiter, unspecified; M54.10 Radiculopathy, site unspecified; Z79.4 Long term (current) use of insulin
CPT/HCPCS: 36415; 71275; 74175; 76536; 80048; 80053; 80307; 81003; 82962; 83036; 83735; 83880; 84100; 84439; 84443; 84484; 85025; 93005; 93017; 93306; 93350; 96374; 96375; 99285; J1815; S5561; U0002

== ENCOUNTER 2020-06-19 10:22 | Inpatient (IN) | payer OTHER ==
[~2020-06-19] VITALS: Ht 160 cm; Wt 90.7 kg
[~2020-06-19 10:22] MED LIST changes: +LEVEMIR FL100 UNIT/1 SUBQ; +LISINOPRIL40 MG ORAL; +NOVOLOG100 UNITS1 SUBQ; +Vancomycin 1gm in D5W 275ml IVPB SCH; +insulin
--- NOTE | 2020-06-19 10:52 | NUR ---
ED Nurse Note: Pt ambulated to ED from home d/t coughing, chills, fever with nausea/vomiting for 3 days. Pt is AOx4, calm and cooperative to care. Pt was satting around 98% on RA, no dyspnea noted; fever with 102.3 temp at triage. Pt was placed on bed, doors kept closed at all times.
[2020-06-19] MEDS ORDERED: Acetaminophen 500mg (ES) tab ORAL ONE ×2 (11:30→16:30)
--- NOTE | 2020-06-19 11:47 | NUR ---
ED Nurse Note: x-ray at bedside.
--- NOTE | 2020-06-19 12:15 | Diagnostic Imaging Report ---
EXAM: XR Chest, 1 View CLINICAL HISTORY: COUGH TECHNIQUE: Frontal view of the chest. COMPARISON: Chest radiograph on 07/23/2019 FINDINGS: Hardware: None. Lungs/pleura: Mild opacity in the left lower lung. Stable mild scarring in the right upper lung. No pleural effusion or pneumothorax. Skinfold along the right lateral lower lung. Heart/mediastinum: Median sternotomy changes. Surgical clips along the mediastinum. No cardiomegaly. Soft tissues: Unremarkable. Bones: No acute fracture. Upper abdomen: Normal. IMPRESSION: Mild opacity in the left lower lung may represent atelectasis versus infectious/inflammatory process.
[2020-06-19 12:23] LABS: APPEARANCE,URINE CLEAR; BILIRUBIN, URINE NEGATIVE (NEGATIVE); GLUCOSE, URINE (UA) 4+ (NEGATIVE); KETONES,URINE 2+ (NEGATIVE); LEUKOCYTE ESTERASE ,URINE NEGATIVE (NEGATIVE); NITRITE,URINE NEGATIVE (NEGATIVE); PH,URINE 6.5 (4.5-8.0); PROTEIN,URINE 2+ (NEGATIVE); UROBILINOGEN,URINE 4 MG/DL (0.0-1.0)
[2020-06-19 12:24] VITALS: BP 159/99
[2020-06-19 12:25] LABS: COLOR,URINE YELLOW
[2020-06-19 12:26] LABS: EOSINOPHILS % (AUTO) 0.3 % (0.0-3.0); HEMATOCRIT 43.3 % (37.0-47.0); HEMOGLOBIN 14.3 G/DL (12.0-16.0); LYMPHOCYTES % (AUTO) 12.3 % (20.0-45.0); MEAN CORPUSCULAR VOLUME 83 FL (80-99); MONOCYTES % (AUTO) 13.4 % (1.0-10.0); NEUTROPHILS % (AUTO) 71.1 % (45.0-75.0); PLATELET COUNT 201 K/UL (150-450); RED BLOOD COUNT 5.19 M/UL (4.20-5.40); RED CELL DISTRIBUTION WIDTH 14.2 % (11.6-14.8); WHITE BLOOD COUNT 6.2 K/UL (4.8-10.8)
[2020-06-19] MEDS ORDERED: Azithromycin 500 MG in NS 275 ML IV ONE (12:30)
[2020-06-19] MEDS ORDERED: Cefepime HCl 1 GM in D5W 55 ML IVPB ONE (12:30)
[2020-06-19 12:39] LABS: INR 1.1 (0.9-1.1)
[2020-06-19] MEDS ORDERED: Morphine Sulfate 4mg/ml Inj (IV USE ONLY) IVP ONE (13:00)
[2020-06-19 13:04] LABS: ANION GAP 8 mmol/L (5-15); BLOOD UREA NITROGEN 10 mg/dL (7-18); CALCIUM 8.8 MG/DL (8.5-10.1); CARBON DIOXIDE 28 MMOL/L (21-32); CHLORIDE 97 MMOL/L (98-107); POTASSIUM 3.7 MMOL/L (3.5-5.1); SODIUM 133 MMOL/L (136-145)
[2020-06-19 13:09] LABS: ALANINE AMINOTRANSFERASE 35 U/L (12-78); ALBUMIN 3.3 G/DL (3.4-5.0); ALBUMIN/GLOBULIN RATIO 0.7 (1.0-2.7); ALKALINE PHOSPHATASE 62 U/L (46-116); ASPARTATE AMINO TRANSFERASE 37 U/L (15-37); BILIRUBIN,TOTAL 0.3 MG/DL (0.2-1.0)
--- NOTE | 2020-06-19 13:26 | NUR ---
ED Nurse Note: lactic and cultures collected, sent to lab.
[2020-06-19] MEDS ORDERED: Enoxaparin 40mg Inj SUBQ ONE (14:15)
[2020-06-19 15:00] VITALS: BP 158/100
--- NOTE | 2020-06-19 15:05 | Emergency Room Report ---
History of Present Illness General Chief Complaint: Upper Respiratory Illness Source: Patient, Medical Record Present Illness HPI 49-year-old female presents with body aches, chills, cough. Febrile in triage. Was seen here on 06/13 and admitted. Was transferred to [facility] on 06/15 for catheterization. Was sent home that day. States shortly after she started developing fevers and chills and body aches. Denies chest pain. States she is unaware of any contacts for Covid. No other aggravating relieving factors. 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 COVID-19 Screening: Negative COVID-19 COVID-19 Testing Source: 06/13/20 Patient History Past Medical History: HTN, CAD, asthma Past Surgical History: none Pertinent Family History: none Social History: Denies: smoking, alcohol use, drug use Now: No Immunizations: UTD Reviewed Nursing Documentation: PMH: Agreed; PSxH: Agreed Nursing Documentation-PMH Past Medical History: No History, Except For Hx Cardiac Problems: Yes Hx Hypertension: Yes Hx Asthma: Yes Hx Diabetes: Yes Hx Cancer: Yes Hx Gastrointestinal Problems: Yes - Gastric Sleeve Hx Neurological Problems: No Review of Systems All Other Systems: negative except mentioned in HPI Physical Exam Vital Signs Date Time Temp Pulse Resp B/P (MAP) Pulse Ox O2 Delivery O2 Flow Rate FiO2 06/19/20 10:28 102.4 128 20 162/106 (124) 98 Room Air Sp02 EP Interpretation: reviewed, normal General Appearance: no apparent distress, alert, GCS 15, non-toxic Head: normocephalic, atraumatic Eyes: bilateral eye normal inspection, bilateral eye PERRL ENT: hearing grossly normal, normal pharynx, no angioedema, normal voice Neck: full range of motion, supple/symm/no masses Respiratory: chest non-tender, lungs clear, normal breath sounds, speaking full sentences Cardiovascular #1: no edema, tachycardia Cardiovascular #2: 2+ carotid (R), 2+ carotid (L), 2+ radial (R), 2+ radial (L), 2+ dorsalis pedis (R), 2+ dorsalis pedis (L) Gastrointestinal: normal bowel sounds, non tender, soft, non-distended, no guarding, no rebound Rectal: deferred Genitourinary: normal inspection, no CVA tenderness Musculoskeletal: back normal, normal range of motion, gait/station normal, non- tender Neurologic: alert, motor strength/tone normal, oriented x3, sensory intact, responsive, speech normal Psychiatric: judgement/insight normal, memory normal, mood/affect normal, no suicidal/homicidal ideation Reflexes: 3+ bicep (R), 3+ bicep (L), 3+ tricep (R), 3+ tricep (L), 3+ knee (R), 3+ knee (L) Skin: no rash Lymphatic: no adenopathy Medical Decision Making Diagnostic Impression: Primary Impression: COVID-19 Additional Impression: Dyspnea Qualified Codes: R06.00 - Dyspnea, unspecified ER Course Hospital Course 49-year-old female presents with fevers and cough and chills. Recently hospitalized for cardiac catheterization Differential diagnoses include: Pneumonia, CHF exacerbation, pneumothorax, fluid overload Clinical course Patient placed on stretcher. Isolation. I wore full PPE. On residential monitor with stable vitals. After initial history and physical, I ordered labs, IV fluids, EKG, chest x-ray, blood cultures, UA. Labs -no leukocytosis, hemoglobin/hematocrit stable, electrolytes ok, lactate okay troponins negative d-dimer elevated CXR - patchy opacities EKG - sinus tachycardia no acute ischemic changes interpreted by me Lovenox. Given IV fluids. Given antibiotics. Given Tylenol and morphine for pain. Case discussed with Dr. Higginbotham and he agreed to the patient to his service for further care and support I feel this is a highly complex case requiring extensive working including EKG/Rhythm strip, Xray/CT/US, Blood/urine lab work, repeat exams while in ED, and administration of strong opiates/narcotics for pain control, [facility] or [facility] follow up. Diagnosis - COVID 19, dyspnea Patient admitted to telemetry in serious condition Laboratory Tests Test 06/19/20 12:05 06/19/20 12:10 06/19/20 13:05 Urine Color Yellow Urine Appearance Clear Urine pH 6.5 (4.5-8.0) Urine Specific [place] 1.015 (1.005-1.035) Urine Protein 2+ (NEGATIVE) H Urine Glucose (UA) 4+ (NEGATIVE) H Urine Ketones 2+ (NEGATIVE) H Urine Blood Negative (NEGATIVE) Urine Nitrite Negative (NEGATIVE) Urine Bilirubin Negative (NEGATIVE) Urine Urobilinogen 4 MG/DL (0.0-1.0) H Urine Leukocyte Esterase Negative (NEGATIVE) Urine RBC 0 /HPF (0 - 2) Urine WBC 0-2 /HPF (0 - 2) Urine Squamous Epithelial Cells Few /LPF (NONE/OCC) Urine Bacteria Few /HPF (NONE) White Blood Count 6.2 K/UL (4.8-10.8) Red Blood Count 5.19 M/UL (4.20-5.40) Hemoglobin 14.3 G/DL (12.0-16.0) Hematocrit 43.3 % (37.0-47.0) Mean Corpuscular Volume 83 FL (80-99) Mean Corpuscular Hemoglobin 27.6 PG (27.0-31.0) Mean Corpuscular Hemoglobin Concent 33.1 G/DL (32.0-36.0) Red Cell Distribution Width 14.2 % (11.6-14.8) Platelet Count 201 K/UL (150-450) Mean Platelet Volume 10.4 FL (6.5-10.1) H Neutrophils (%) (Auto) 71.1 % (45.0-75.0) Lymphocytes (%) (Auto) 12.3 % (20.0-45.0) L Monocytes (%) (Auto) 13.4 % (1.0-10.0) H Eosinophils (%) (Auto) 0.3 % (0.0-3.0) Basophils (%) (Auto) 3.0 % (0.0-2.0) H Prothrombin Time 12.2 SEC (9.30-11.50) H Prothromb Time International Ratio 1.1 (0.9-1.1) Activated Partial Thromboplast Time 31 SEC (23-33) D-Dimer 0.99 mg/L FEU (0.00-0.49) H Sodium Level 133 MMOL/L (136-145) L Potassium Level 3.7 MMOL/L (3.5-5.1) Chloride Level 97 MMOL/L (98-107) L Carbon Dioxide Level 28 MMOL/L (21-32) Anion Gap 8 mmol/L (5-15) Blood Urea Nitrogen 10 mg/dL (7-18) Creatinine 1.0 MG/DL (0.55-1.30) Estimat Glomerular Filtration Rate > 60 mL/min (>60) Glucose Level 257 MG/DL (74-106) H Calcium Level 8.8 MG/DL (8.5-10.1) Ferritin 121 NG/ML (8-388) Total Bilirubin 0.3 MG/DL (0.2-1.0) Aspartate Amino Transf (AST/SGOT) 37 U/L (15-37) Alanine Aminotransferase (ALT/SGPT) 35 U/L (12-78) Alkaline Phosphatase 62 U/L (46-116) Lactate Dehydrogenase 328 U/L (81-234) H Troponin I 0.000 ng/mL (0.000-0.056) C-Reactive Protein, Quantitative 21.4 mg/dL (0.00-0.90) H Pro-B-Type Natriuretic Peptide Pending Total Protein 8.1 G/DL (6.4-8.2) Albumin 3.3 G/DL (3.4-5.0) L Globulin 4.8 g/dL Albumin/Globulin Ratio 0.7 (1.0-2.7) L Lactic Acid Level 1.20 mmol/L (0.4-2.0) EKG Diagnostic Results Troponin ordered: Yes Rate: tachycardiac Rhythm: NSR ST Segments: no acute changes ASA given to the pt in ED: No Rhythm Strip Diag. Results EP Interpretation: yes Rhythm: NSR, no PVC's, no ectopy Chest X-Ray Diagnostic Results Chest X-Ray Diagnostic Results : Chest X-Ray Ordered: Yes # of Views/Limited/Complete: 1 View Indication: Shortness of Breath EP Interpretation: Yes Interpretation: no pneumothorax, other - patchy opacities Impression: Other - COVID Pneumonia Electronically Signed by: Electronically signed by Scott Tovar MD Last Vital Signs Date Time Temp Pulse Resp B/P (MAP) Pulse Ox O2 Delivery O2 Flow Rate FiO2 06/19/20 13:28 123 20 Room Air 06/19/20 12:24 102.4 159/99 98 Status: improved Disposition: ADMITTED INPATIENT Condition: Serious [facility]errals: [facility] ([facility]P) Scott Tovar MD Jun 19, 2020 15:05
--- NOTE | 2020-06-19 16:51 | History and Physical ---
History of Present Illness General Reason for Hospitalization: Upper Respiratory Illness Present Illness Allergies: Coded Allergies: PENICILLINS (Unverified Allergy, Unknown, 12/04/14) COVID-19 Screening Contact w/high risk pt: No Recent Travel to affected area: No Experienced COVID-19 symptoms?: Yes Coronavirus symptoms experienc: Chills, Cough, Muscle or Body Aches, Headache, Loss of taste or smell Medication History Scheduled Amlodipine Besylate (Norvasc), 10 MG ORAL DAILY Dicyclomine Hcl* (Dicyclomine Hcl*), 10 MG ORAL QID Famotidine* (Pepcid 20mg tablet*), 20 MG ORAL DAILY Insulin Aspart (Novolog Flexpen), 5 UNITS SUBQ NOVOTIAC Insulin Detemir (Levemir Flexpen), 20 UNITS SUBQ BEFORE BREAKFAST Lisinopril* (Lisinopril*), 40 MG ORAL DAILY, (Reported) Scheduled PRN Hydrocodone Bit/Acetaminophen 10-325* (Millry 10-325*), 1 TAB ORAL Q6H PRN for For Pain, (Reported) Hydrocodone Bit/Acetaminophen 5-325* (Millry 5-325*), 1 TAB ORAL Q6H PRN for For Pain Ondansetron (Zofran), 4 MG ORAL Q6H PRN for Nausea & Vomiting Miscellaneous Medications [insulin], (Reported) Discontinued Medications Clindamycin Hcl* (Clindamycin Hcl*), 450 MG ORAL TID Discontinued Reason: discontinued med Ibuprofen (Motrin), 600 MG ORAL THREE TIMES A DAY Discontinued Reason: discontinued med Lactulose (Lactulose*), 15 ML ORAL TID Discontinued Reason: discontinued med Metformin Hcl* (Metformin Hcl*), 500 MG ORAL TWICE A DAY Discontinued Reason: discontinued med Prednisone* (Prednisone*), 40 MG ORAL DAILY Discontinued Reason: MD discontinued med Patient History Healthcare decision maker Resuscitation status Full COde Advanced Directive on File Patient History Narrative This is a 49-year-old female with a past medical history of diabetes mellitus type 2, hypertension, asthma, history of thyroid cancer status post thyroidectomy, history of cervical cancer who presents with a 3-day history of generalized fatigue, muscle aches/pains, chills, and fever to 102. Patient also with generalized headache, bilateral neck pain, photophobia, and nausea. She d enies any recent trauma or MVAs. She denies any blurry vision, vision changes, numbness, tingling, or focal weakness. She denies any cough or shortness of breath, no chest pain. No abdominal pain. No signs of bleeding. The patient was recently admitted for Chest pain and found to have a positive dobutamine stress test. She was then transferred to [facility] on 05/16 for cardiac cath which was negative per patient. After cath the patient felt well when she got home she had the above symptoms. She has no known COVID contacts. In the ER the patient was found to be febrile to 102, tachycardic to 123. Chest x-ray reviewed showing possible left lower lobe infiltrate. Covid test was positive. CT head was performed which was normal. A lumbar puncture was attempted due to concern for meningitis. She was given antibiotics and fluids. She was on room air and saturating well. EKG reviewed showing sinus tachycardia, QTC 446. Allergies: PCN PMHx see hpi PSurghx Thyroidecomy Hip surgery gastric sleeve Soc Hx Tobacco denies EtOH: Occasional wine Drugs: denies Family history: None Meds: amlodipine 10, lisinopril 40, aspart 5 TID, detemir 20 units daily Family History Family History: FH: hypertension Review of Systems ROS Narrative Review of systems: Constitutional: See HPI, HEENT: SEe HPI Cardiovascular: Denies: chest pain, edema, lightheadedness, palpitations Respiratory: Denies: cough, orthopnea, shortness of breath, SOB with excertion, SOB at rest, Gastrointestinal/Abdominal: Denies: abdominal pain, black stools, blood in stool, constipation, diarrhea, nausea, poor fluid intake vomiting, other Genitourinary: Denies: burning, discharge, frequency, Neurologic/Psychiatric: Denies: headache, numbness, paresthesia, new weakness, other Endocrine: Denies: excessive sweating, flushing, intolerance to cold, MSK: See HPI Hematologic/Lymphatic: Denies: anemia, easy bleeding, easy bruising, Physical Exam Physical Exam Narrative General: WDWN female in NAD, A&O x 4 HEENT: Normocephalic cephalic atraumatic, pupils equal round reactive to light and accommodation, nares patent and no symmetrical, no tonsillar exudates, mucous membranes moist Neck: Stiff bilaterally and painful all over but more paraspinal R >L. Pain with flexion of neck forward. CV: Tachycardic, no murmurs, rubs, or gallops Pulm: Lungs clear to auscultation bilaterally. No wheezes, rhonchi, or rales GI: Soft, nontender, nondistended, bowel sounds present Neuro: CN 2-12 intact bilaterally, no focal signs. PERRLA. Motor strength 5 out of 5 in upper extremity and lower extremity bilaterally. Gross sensation intact to light touch in upper extremity and lower extremity bilaterally. Ext: 1+ lower extremity edema bilaterally Skin: no rashes lesions or ulcers Msk: Joints symmetrical in upper extremity and lower extremity bilaterally, no joint swelling. Lymph: No lymphadenopathy in upper extremity and lower extremity Last 24 Hour Vital Signs Date Time Temp Pulse Resp B/P (MAP) Pulse Ox O2 Delivery O2 Flow Rate FiO2 06/19/20 13:28 123 20 Room Air 06/19/20 13:27 102.4 06/19/20 12:24 102.4 127 20 159/99 98 Room Air 06/19/20 12:22 102.4 06/19/20 10:28 102.4 128 20 162/106 (124) 98 Room Air Laboratory Tests Test 06/19/20 12:05 06/19/20 12:10 06/19/20 13:05 Urine Color Yellow Urine Appearance Clear Urine pH 6.5 (4.5-8.0) Urine Specific [place] 1.015 (1.005-1.035) Urine Protein 2+ (NEGATIVE) H Urine Glucose (UA) 4+ (NEGATIVE) H Urine Ketones 2+ (NEGATIVE) H Urine Blood Negative (NEGATIVE) Urine Nitrite Negative (NEGATIVE) Urine Bilirubin Negative (NEGATIVE) Urine Urobilinogen 4 MG/DL (0.0-1.0) H Urine Leukocyte Esterase Negative (NEGATIVE) Urine RBC 0 /HPF (0 - 2) Urine WBC 0-2 /HPF (0 - 2) Urine Squamous Epithelial Cells Few /LPF (NONE/OCC) Urine Bacteria Few /HPF (NONE) White Blood Count 6.2 K/UL (4.8-10.8) Red Blood Count 5.19 M/UL (4.20-5.40) Hemoglobin 14.3 G/DL (12.0-16.0) Hematocrit 43.3 % (37.0-47.0) Mean Corpuscular Volume 83 FL (80-99) Mean Corpuscular Hemoglobin 27.6 PG (27.0-31.0) Mean Corpuscular Hemoglobin Concent 33.1 G/DL (32.0-36.0) Red Cell Distribution Width 14.2 % (11.6-14.8) Platelet Count 201 K/UL (150-450) Mean Platelet Volume 10.4 FL (6.5-10.1) H Neutrophils (%) (Auto) 71.1 % (45.0-75.0) Lymphocytes (%) (Auto) 12.3 % (20.0-45.0) L Monocytes (%) (Auto) 13.4 % (1.0-10.0) H Eosinophils (%) (Auto) 0.3 % (0.0-3.0) Basophils (%) (Auto) 3.0 % (0.0-2.0) H Prothrombin Time 12.2 SEC (9.30-11.50) H Prothromb Time International Ratio 1.1 (0.9-1.1) Activated Partial Thromboplast Time 31 SEC (23-33) D-Dimer 0.99 mg/L FEU (0.00-0.49) H Sodium Level 133 MMOL/L (136-145) L Potassium Level 3.7 MMOL/L (3.5-5.1) Chloride Level 97 MMOL/L (98-107) L Carbon Dioxide Level 28 MMOL/L (21-32) Anion Gap 8 mmol/L (5-15) Blood Urea Nitrogen 10 mg/dL (7-18) Creatinine 1.0 MG/DL (0.55-1.30) Estimat Glomerular Filtration Rate > 60 mL/min (>60) Glucose Level 257 MG/DL (74-106) H Calcium Level 8.8 MG/DL (8.5-10.1) Ferritin 121 NG/ML (8-388) Total Bilirubin 0.3 MG/DL (0.2-1.0) Aspartate Amino Transf (AST/SGOT) 37 U/L (15-37) Alanine Aminotransferase (ALT/SGPT) 35 U/L (12-78) Alkaline Phosphatase 62 U/L (46-116) Lactate Dehydrogenase 328 U/L (81-234) H Troponin I 0.000 ng/mL (0.000-0.056) C-Reactive Protein, Quantitative 21.4 mg/dL (0.00-0.90) H Pro-B-Type Natriuretic Peptide Pending Total Protein 8.1 G/DL (6.4-8.2) Albumin 3.3 G/DL (3.4-5.0) L Globulin 4.8 g/dL Albumin/Globulin Ratio 0.7 (1.0-2.7) L Lactic Acid Level 1.20 mmol/L (0.4-2.0) Microbiology Date/Time Source Procedure Growth Status 06/19/20 12:10 Nasopharynx SARS-CoV-2 RdRp Gene Assay - Final Complete Height (Feet): 5 Height (Inches): 3.00 Weight (Pounds): 200 Assessment/Plan Assessment/Plan: This is a 49 year old female p/w sepsis due to COVID pneumonia, headache, neck pain, #Covid pneumonia #LLL opacity, rule out superimposed HAP vs. CAP #Sepsis (fever, tachycardia) due to COVID #fatigue #muscle aches #PCN allergy -> hives/itching. No anaphylaxis. Has gotten cephalosporins without any issues. > LDH 328, CRP 21.4, lactate 1.2, d-dimer 0.99 > onset of symptoms 06/17/20 -Admit to telemetry -Blood cultures -Vanc per pharm (06/19 - ) -Cefepime 2gm Q8hr (06/19 - ) -Flagyl (06/19 - ) -Abx per ID - Gentle IV fluids - pulmonary hygeine - albuterol PRN -Appreciate ID consult: Dr. Steele -Consider Dex/Remdesivir if patient becomes hypoxic #hyponatremia, suspect hypovolemic - trend sodium - IV fluids as above #Severe headache, suspect due to COVID. R/o intracranial process (CT head negative). R/o meningitis (tho less likely) #nausea #possible cervical radiculopathy from last admit -Appreciate neurology consult: Dr. Gracia -Appreciate ID consult: Dr. Steele - Follow up LP studies including cell count, gram stain/culture, meningitis panel, COVID PCR? - Treat with broad spectrum abx - Vanc per pharm (06/19 - ) - Cefepime 2gm Q8hr (06/19 - ) - abx per ID -Consider MRI C spine if able (previously unable to tolerate #s/p Chest Pain #Sinus tachycardia suspected secondary to sepsis from Covid #right groin pain. No signs of hematoma on exam. Pulses palpable. Has pain all over body. RF - , female, dm2 > Dobutamine stress test positive >EKG reviewed on admission - s/p cardiac cath at OSH in [facility]. Dr. Mcgee - Cardiology consulted: Dr. Dos Santos - Continue Statin - troponin - EKG prn for chest pain - Keep K>4 and Mag >2 #Bilateral Lower extremity swelling - venous duplex to rule out DVT #Right side goiter #s/p thyroidectomy - lost to follow up - repeat Thyroid US. Will need Endocrine consult #h/o cervical cancer - lost to follow up - outpatient follow up with oncology - patient understands importance of follow up #DM2 - Insulin dependent DM2 - Takes 20U of Long acting insulin in AM - ACHS BG - SSI - hypoglycemia protocol - diabetic diet #HTN - Reduce to amlodipine 5mg daily - holding lisinopril - hydralazine PRN #Hx of Asthma - prn breathing treatment #HLD - Continue atorvastatin FENPPX DVTPPX: lovenox Fluids: as above Diet: Diabetic Lines: PIV PT/OT: pending Code status: Full Dispo: Home vs. Rehab Reason for Continued Hospitalization: COVID MIPS (Merit-based Incentive Payment System) Applicable CPT: 85667, 05510 CHECK ALL THAT ARE MET: [] Measure #5 (CHF): All ages. Prescribe TRINA/ARB upon discharge for patients with left ventricular systolic dysfunction. If not, the reason is clearly documented in the medical chart [] Measure #8 (CHF): All ages. Prescribe a beta reggie upon discharge for patients with left ventricular systolic dysfunction. If not, the reason is clearly documented in the medical chart. [x] Measure #47: Advance care plan or surrogate decision maker documented in the medical record. [x] Measure #130 The provider has documented, updated, or reviewed the patients current medication list and has documented it in the patients note. [] Measure #374 (All): Send report to referring provider. [] Measure #407(Sepsis due to MSSA bacteremia): Age 18+ Patient treated with a beta-lactam antibiotic (Nafcillin, Oxacillin or Cefazolin) as definitive therapy. MEDICAL COMPLEXITYHigh complexity medical decision making (need 2/3 categories)Problem - need 4 points [x]Acute/new problem with new plan for workup (4 points, 1 max) [] Acute/new problem without additional workup (3 points, 1 max) [] Unstable chronic problem actively being managed (2 point each, 2 max) [x] Stable chronic problem actively being managed (1 point each, 2 max) [x] Self-limited/transient process (constipation, muscle ache, etc) (1 point each, 2 max) Data - need 4 points [x] Reviewed labs/imaging studies (1 points, 2 max) [x] Independent review of imaging (EKG, xrays, etc) (2 points, 2 max) [x] Discussed case with consult/other MD/RN (2 points, 2 max) High Risk - qualify if have one of the following: [x] Severe exacerbation of acute problem, acute mental status change, IV narcotics, monitoring drug levels (vancomycin, INR, tacrolimus etc) I spent 73 minutes on this patient's case, and 40 mins was dedicated to counseling and/or care coordination. Discussed with ID, ED, Neuro, Cardiology Time of note may not reflect time of encounter Matt Hernández D.O. Jun 19, 2020 16:51
[2020-06-19] MEDS ORDERED: NORCO 10-325 T1 EACH ORAL (17:20)
--- NOTE | 2020-06-19 18:01 | NUR ---
ED Nurse Note: pt was taken to ct on stable condition.
--- NOTE | 2020-06-19 18:41 | Diagnostic Imaging Report ---
History: H/A Exam: CT HEAD Without Contrast Technique more: CTDI is 53.4 mGy and DLP is 1045.5 mGy-cm. Technique more: One or more of the following dose reduction techniques were used: automated exposure control, adjustment of the mA and/or kV according to patient size, use of iterative reconstruction technique. Comparison: None available FINDINGS: No intracranial hemorrhage, mass effect or CT evidence of acute infarct. The ventricles are within limits and midline. The visualized paranasal sinuses, mastoids and orbits appear within limits. IMPRESSION: No intracranial hemorrhage, mass effect or CT evidence of acute infarct.
--- NOTE | 2020-06-19 19:12 | NUR ---
ED Nurse Note: Hand off given to Kate TORRES.
[2020-06-19 19:13] VITALS: BP 161/92
--- NOTE | 2020-06-19 19:13 | NUR ---
ED Nurse Note: pt laying in bed with eyes closed, opens eyes when name is called. Pt is AAOx4, breathing even and unlabored on RA 100%, sinus tachycardia HR 101-103 EDMD aware. No complaints from pt at the moment.
--- NOTE | 2020-06-19 20:13 | NUR ---
ED Nurse Note: vre, cre, mrsa swab sent to lab
[2020-06-19] MEDS ORDERED: traMADol 50mg tab ORAL PRN (21:00)
[2020-06-19] MEDS ORDERED: LORazepam Inj 2mg/ml 1ml IV PRN (21:00)
[2020-06-19] MEDS ORDERED: Miralax 17gm pkt ORAL PRN (21:00)
[2020-06-19] MEDS ORDERED: oxyCODONE 5mg IR tab ORAL PRN (21:00)
--- NOTE | 2020-06-19 21:45 | NUR ---
ED Nurse Note: EDMD attempted Lumbar puncture, but unable to obtain CSF sample.
[2020-06-19] MEDS ORDERED: Albuterol 90mcg Inhaler 8gm INH PRN (22:00)
[2020-06-19] MEDS ORDERED: Enoxaparin 40mg Inj SUBQ SCH (22:00)
--- NOTE | 2020-06-19 22:06 | NUR ---
ED Nurse Note: report given to MELISSA Ramirez
--- NOTE | 2020-06-19 22:07 | NUR ---
ED Nurse Note: per EDMD verbal order for 1mg dilaudid IVP once.
[2020-06-19] MEDS ORDERED: HYDROmorphone 1mg/ml Carpuject ONE (22:10)
[2020-06-19 22:15] VITALS: BP 158/92
[2020-06-19] MEDS ORDERED: HYDROmorphone 1mg/ml Carpuject IVP ONE (22:15)
[2020-06-19] MEDS ORDERED: Vancomycin 1.5gm/300ml Premix 300 ML IVPB ONE (22:15)
--- NOTE | 2020-06-19 22:15 | Emergency Room Report ---
Physical Exam Vital Signs Date Time Temp Pulse Resp B/P (MAP) Pulse Ox O2 Delivery O2 Flow Rate FiO2 06/19/20 10:28 102.4 128 20 162/106 (124) 98 Room Air Medical Decision Making Diagnostic Impression: Primary Impression: COVID-19 Additional Impression: Dyspnea Qualified Codes: R06.00 - Dyspnea, unspecified ER Course 49-year-old female admitted for COVID-19 pneumonia. Remains febrile. She is complaining of persistent headache and CT scan was ordered but did not show any evidence of intracranial injury, mass or shift. Admitting team concern over meningitis was asked to perform a lumbar puncture. Attempt was made using full sterile procedure including sterile gowns, gloves, drapes, Betadine prep. Attempted LP in the L4-L5 space however unsuccessful. The patient states that she has had an LP in the past requiring CT guidance. She was placed in the recumbent position. Neurologically intact at the start end of procedure. Admitting team notified. Will start empiric treatment. Last Vital Signs Date Time Temp Pulse Resp B/P (MAP) Pulse Ox O2 Delivery O2 Flow Rate FiO2 06/19/20 17:01 102.4 06/19/20 15:00 105 13 158/100 98 Room Air Disposition: ADMITTED INPATIENT Condition: Serious Referrals: [facility] ([facility]P) Procedures Lumbar Puncture Consent: Written Location: L4-L5 Anesthesia: 1% Lidocaine Volume Anesthetic (ccs): 5 Prep: bedadine CSF: other - Unable to obtain Post-Procedure: recumbent position Attempts: Other - Multiple Complications: other - Unable to obtain Patient Tolerated: Well - No complications Steven Veliz MD Jun 19, 2020 22:15
--- NOTE | 2020-06-19 22:30 | NUR ---
Preston rothman in EDM - 06/20/20 at 0123 by CASSIE ED Nurse Note: Report given to MELISSA Ramirez
--- NOTE | 2020-06-19 22:50 | NUR ---
NURSE NOTES: RECEIVED REPORT FROM MELISSA NORTON. PT ADMITTED TO [facility] ROOM 212[facility]2 VIA [facility]. PT AWAKE, A/O X4, ABLE TO MAKE NEEDS KNOWN. NO RESP DISTRESS NOTED. PLACED ON HEDIS MANAGER. AMB FROM [facility] WITH STEADY GAIT. BELONGING LIST CHECKED WITH ER NURSE. BODY CHECK DONE. IV ON LEFT AC SALINE LOCKED. ORIENTED PT TO ROOM & UNIT. BED IN LOW POSITION & LOCKED. SIDE RAIL UP X2. CALL LIGHT WITH IN REACH. ADMISSION ORDERED INPUTTED BY DR. OLIVA.
[2020-06-19 23:00] VITALS: BP 162/98
--- NOTE | 2020-06-19 23:00 | NUR ---
TRANSFER TO FLOOR: Patient transferred to tele as ordered via gurney accompanied by RN and EMT staff. Per EDMD ok to transfer to floor. Report given to MELISSA Ramirez. Belongings and admission packet given to MELISSA Ramirez.
[2020-06-19] MEDS ORDERED: Cefepime 2gm ONE (23:40)
[2020-06-19] MEDS: Docusate 100mg cap ORAL SCH (23:51)
[2020-06-19] MEDS: Cefepime HCl 2 GM in D5W 55 ML IVPB SCH (23:52)
[2020-06-20] VITALS: BP 150/75
[2020-06-20] MEDS: NovoLOG Insulin Flexpen SUBQ SCH ×5 (00:42→21:00)
--- NOTE | 2020-06-20 01:09 | Diagnostic Imaging Report ---
EXAM: US Duplex Bilateral Lower Extremities Veins CLINICAL HISTORY: DVT TECHNIQUE: Real-time duplex ultrasound scan of the bilateral lower extremity veins integrating B-mode two-dimensional vascular structure, Doppler spectral analysis, color flow Doppler imaging and compression. COMPARISON: No relevant prior studies available. FINDINGS: Right deep veins: Unremarkable. No DVT in the right common femoral, femoral, proximal deep femoral or popliteal veins. The veins demonstrate normal color flow, are normally compressible, with normal phasic flow and/or augmentation response. Right superficial veins: Unremarkable. No thrombus in the visualized right great saphenous vein. Left deep veins: Unremarkable. No DVT in the left common femoral, femoral, proximal deep femoral or popliteal veins. The veins demonstrate normal color flow, are normally compressible, with normal phasic flow and/or augmentation response. Left superficial veins: Unremarkable. No thrombus in the visualized left great saphenous vein. Soft tissues: No acute findings. No popliteal cyst. IMPRESSION: Normal bilateral lower extremity duplex venous ultrasound.
[2020-06-20] MEDS: oxyCODONE 5mg IR tab ORAL PRN (02:04)
[2020-06-20] MEDS: DiphenhydrAMINE 50mg/ml Inj IVP PRN ×2 (03:26→15:38)
[2020-06-20 04:00] VITALS: BP 154/78
--- NOTE | 2020-06-20 07:25 | NUR ---
NURSE HAND-OFF REPORT: Important Events on Shift:[admited for covid postive] Patient Status: [stable] Diet: [ccho med] Pending Orders: [] Pending Results/Labs:[] Pending MD notification:[] Latest Vital Signs: Temperature 99.4 , Pulse 109 , B/P 154 /78 , Respiratory Rate 20 , O2 SAT 93 , Room Air, O2 Flow Rate . Vital Sign Comment: [] EKG Rhythm: Sinus Tachycardia Rhythm change?: N MD Notified?: - MD Response: Latest Mathias Fall Score: 45 Fall Risk: High Risk Safety Measures: Call light , Bed Alarm Zone 1, Side Rails Side Rails x2, Bed position Low and Locked. Fall Precautions: Yellow Socks Yellow Gown Patient Fall Education Report given to [aaron [email or web address]].
--- NOTE | 2020-06-20 07:30 | NUR ---
NURSE NOTES: Observed patient awake, lying semi-callahan's. resting. On room air with no acute distress. AAO x4, Able to make needs known, complaining of generalized pain. Encouraged to relax and take deep breath. repositioned to comfort patient. IV on left hand and left AC patent and intact NS running at 75cc/hr. Bed in low position and locked, Call light within reach. Encouraged to use call light when needed. Will continue plan of care.
[2020-06-20 08:00] VITALS: BP 174/113
[2020-06-20] MEDS: Docusate 100mg cap ORAL SCH ×2 (08:45→21:00)
[2020-06-20] MEDS: Enoxaparin 40mg Inj SUBQ SCH (08:47)
[2020-06-20] MEDS: Cefepime HCl 2 GM in D5W 55 ML IVPB SCH ×3 (08:49→23:25)
--- NOTE | 2020-06-20 08:50 | NUR ---
NURSE NOTES: Patient wants to take her medications after her tea.
[2020-06-20] MEDS ORDERED: Levemir Flexpen SUBQ SCH (09:00)
--- NOTE | 2020-06-20 09:00 | NUR ---
NURSE NOTES: RN came back to give pt morning medications. After she took them all, she vomited. Patient has fever and High BP. Encouraged patient , it would be better if pt take Tylenol suppository for fever. Patient refused. Gave some ice bags to cool patient down. Will continue to monitor.
--- NOTE | 2020-06-20 09:20 | NUR ---
NURSE NOTES: Patient temp went down to 99.8
--- NOTE | 2020-06-20 09:31 | Consultation ---
History of Present Illness General Date patient seen: Jun 19, 2020 Reason for Hospitalization: Upper Respiratory Illness Present Illness HPI 49-year-old female presents with body aches, chills, cough. Febrile in triage. Was seen here on 06/13 and admitted. Was transferred to [facility] on 06/15 for catheterization. Was sent home that day. States shortly after she started developing fevers and chills and body aches. Allergies: Coded Allergies: PENICILLINS (Unverified Allergy, Unknown, 12/04/14) COVID-19 Screening Contact w/high risk pt: No Recent Travel to affected area: No Experienced COVID-19 symptoms?: Yes Coronavirus symptoms experienc: Fever (T>100.4F or >38C) Medication History Scheduled Amlodipine Besylate (Norvasc), 10 MG ORAL DAILY Dicyclomine Hcl* (Dicyclomine Hcl*), 10 MG ORAL QID Famotidine* (Pepcid 20mg tablet*), 20 MG ORAL DAILY Insulin Aspart (Novolog Flexpen), 5 UNITS SUBQ NOVOTIAC Insulin Detemir (Levemir Flexpen), 20 UNITS SUBQ BEFORE BREAKFAST Lisinopril* (Lisinopril*), 40 MG ORAL DAILY, (Reported) Scheduled PRN Hydrocodone Bit/Acetaminophen 10-325* ([place] 10-325*), 1 TAB ORAL Q6H PRN for For Pain, (Reported) Hydrocodone Bit/Acetaminophen 5-325* ([place] 5-325*), 1 TAB ORAL Q6H PRN for For Pain Ondansetron (Zofran), 4 MG ORAL Q6H PRN for Nausea & Vomiting Miscellaneous Medications [insulin], (Reported) Discontinued Medications Clindamycin Hcl* (Clindamycin Hcl*), 450 MG ORAL TID Discontinued Reason: MD discontinued med Ibuprofen (Motrin), 600 MG ORAL THREE TIMES A DAY Discontinued Reason: MD discontinued med Lactulose (Lactulose*), 15 ML ORAL TID Discontinued Reason: MD discontinued med Metformin Hcl* (Metformin Hcl*), 500 MG ORAL TWICE A DAY Discontinued Reason: MD discontinued med Prednisone* (Prednisone*), 40 MG ORAL DAILY Discontinued Reason: MD discontinued med Patient History Healthcare decision maker Resuscitation status Advanced Directive on File Family History Family History: FH: hypertension Review of Systems Review of Symptoms General ROS: no weight loss or fever Psychological ROS: no depression or mood changes, no memory loss Ophthalmic ROS: no visual changes or eye irritation ENT ROS: no nasal congestion, hearing loss, dizziness Allergy and Immunology ROS: no allergic symptoms or urticaria Hematological and Lymphatic ROS: no swollen glands, unusual bleeding or bruising Endocrine ROS: no polyuria, polydipsia, weight changes, temperature intolerance Respiratory ROS: no cough, shortness of breath, or wheezing Cardiovascular ROS: no chest pain or dyspnea on exertion Gastrointestinal ROS: denies abdominal pain, bright red blood in stool. Musculoskeletal ROS: no myalgias or arthralgias Neurological ROS: no TIA or stroke symptoms Dermatological ROS: no new or changing skin lesions, rashes or pruritis Physical Exam Physical Exam General appearance: alert, cooperative, no distress, appears stated age Head: Normocephalic, without obvious abnormality, atraumatic Eyes: conjunctivae/corneas clear. PERRL, EOM's intact. Fundi benign Throat: Lips, mucosa, and tongue normal. Teeth and gums normal Neck: supple, symmetrical, trachea midline, no adenopathy, thyroid: not enlarged, symmetric, no tenderness/mass/nodules, no carotid bruit and no JVD Lungs: clear to auscultation bilaterally Heart: regular rate and rhythm, S1, S2 normal, no murmur, click, rub or gallop Abdomen: soft, non-tender. Bowel sounds normal. No masses, no organomegaly Extremities: extremities normal, atraumatic, no cyanosis or edema Pulses: 2+ and symmetric Skin: Skin color, texture, turgor normal. No rashes or lesions Neurologic: Grossly normal Last 24 Hour Vital Signs Date Time Temp Pulse Resp B/P (MAP) Pulse Ox O2 Delivery O2 Flow Rate FiO2 06/20/20 08:49 121 174/113 06/20/20 08:48 174/113 06/20/20 08:00 101.8 121 22 174/113 (133) 97 06/20/20 04:00 109 06/20/20 04:00 99.4 105 20 154/78 (103) 93 06/20/20 00:12 Room Air 06/20/20 00:00 105 06/20/20 00:00 98.2 102 20 150/75 (100) 94 06/19/20 23:00 99.5 108 18 162/98 100 Room Air 06/19/20 23:00 99.5 108 18 162/98 100 Room Air 06/19/20 22:43 99.5 06/19/20 22:15 99.6 110 18 158/92 100 Room Air 06/19/20 19:13 100.1 104 16 161/92 100 Room Air 06/19/20 17:01 102.4 06/19/20 15:00 102.4 105 13 158/100 98 Room Air 06/19/20 13:28 123 20 Room Air 06/19/20 13:27 102.4 06/19/20 12:24 102.4 127 20 159/99 98 Room Air 06/19/20 12:22 102.4 06/19/20 10:28 102.4 128 20 162/106 (124) 98 Room Air Intake and Output 06/19/20 06/20/20 19:00 07:00 Intake Total 200 ml Balance 200 ml Intake Oral 200 ml # Voids 3 Laboratory Tests Test 06/19/20 12:05 06/19/20 12:10 06/19/20 13:05 06/20/20 00:25 Urine Color Yellow Urine Appearance Clear Urine pH 6.5 (4.5-8.0) Urine Specific [place] 1.015 (1.005-1.035) Urine Protein 2+ (NEGATIVE) H Urine Glucose (UA) 4+ (NEGATIVE) H Urine Ketones 2+ (NEGATIVE) H Urine Blood Negative (NEGATIVE) Urine Nitrite Negative (NEGATIVE) Urine Bilirubin Negative (NEGATIVE) Urine Urobilinogen 4 MG/DL (0.0-1.0) H Urine Leukocyte Esterase Negative (NEGATIVE) Urine RBC 0 /HPF (0 - 2) Urine WBC 0-2 /HPF (0 - 2) Urine Squamous Epithelial Cells Few /LPF (NONE/OCC) Urine Bacteria Few /HPF (NONE) White Blood Count 6.2 K/UL (4.8-10.8) Red Blood Count 5.19 M/UL (4.20-5.40) Hemoglobin 14.3 G/DL (12.0-16.0) Hematocrit 43.3 % (37.0-47.0) Mean Corpuscular Volume 83 FL (80-99) Mean Corpuscular Hemoglobin 27.6 PG (27.0-31.0) Mean Corpuscular Hemoglobin Concent 33.1 G/DL (32.0-36.0) Red Cell Distribution Width 14.2 % (11.6-14.8) Platelet Count 201 K/UL (150-450) Mean Platelet Volume 10.4 FL (6.5-10.1) H Neutrophils (%) (Auto) 71.1 % (45.0-75.0) Lymphocytes (%) (Auto) 12.3 % (20.0-45.0) L Monocytes (%) (Auto) 13.4 % (1.0-10.0) H Eosinophils (%) (Auto) 0.3 % (0.0-3.0) Basophils (%) (Auto) 3.0 % (0.0-2.0) H Prothrombin Time 12.2 SEC (9.30-11.50) H Prothromb Time International Ratio 1.1 (0.9-1.1) Activated Partial Thromboplast Time 31 SEC (23-33) D-Dimer 0.99 mg/L FEU (0.00-0.49) H Sodium Level 133 MMOL/L (136-145) L Potassium Level 3.7 MMOL/L (3.5-5.1) Chloride Level 97 MMOL/L (98-107) L Carbon Dioxide Level 28 MMOL/L (21-32) Anion Gap 8 mmol/L (5-15) Blood Urea Nitrogen 10 mg/dL (7-18) Creatinine 1.0 MG/DL (0.55-1.30) Estimat Glomerular Filtration Rate > 60 mL/min (>60) Glucose Level 257 MG/DL (74-106) H Calcium Level 8.8 MG/DL (8.5-10.1) Ferritin 121 NG/ML (8-388) Total Bilirubin 0.3 MG/DL (0.2-1.0) Aspartate Amino Transf (AST/SGOT) 37 U/L (15-37) Alanine Aminotransferase (ALT/SGPT) 35 U/L (12-78) Alkaline Phosphatase 62 U/L (46-116) Lactate Dehydrogenase 328 U/L (81-234) H Troponin I 0.000 ng/mL (0.000-0.056) C-Reactive Protein, Quantitative 21.4 mg/dL (0.00-0.90) H Pro-B-Type Natriuretic Peptide Pending Total Protein 8.1 G/DL (6.4-8.2) Albumin 3.3 G/DL (3.4-5.0) L Globulin 4.8 g/dL Albumin/Globulin Ratio 0.7 (1.0-2.7) L Lactic Acid Level 1.20 mmol/L (0.4-2.0) POC Whole Blood Glucose 235 MG/DL (74-106) H Test 06/20/20 06:26 06/20/20 09:05 POC Whole Blood Glucose 218 MG/DL (74-106) H Pending Microbiology Date/Time Source Procedure Growth Status 06/19/20 13:05 Rectum Received 06/19/20 12:10 Nasopharynx SARS-CoV-2 RdRp Gene Assay - Final Complete Height (Feet): 5 Height (Inches): 3.00 Weight (Pounds): 200 Medications Current Medications Medications (Trade) Dose Ordered Sig/Mando Route PRN Reason Start Time Stop Time Status Last Admin Dose Admin Acetaminophen (Tylenol) 650 mg Q4H PRN ORAL Temp >100.5 06/19/20 21:00 07/19/20 20:59 06/20/20 08:49 Acetaminophen (Tylenol) 650 mg Q4H PRN ORAL Mild Pain (Pain Scale 1-3) 06/19/20 21:00 07/19/20 20:59 Albuterol Sulfate (Proventil MDI) 2 puff Q4H PRN INH Shortness of Breath 06/19/20 22:00 09/17/20 21:59 Baclofen (Lioresal) 5 mg TID PRN ORAL muscle spasm 06/19/20 21:00 07/19/20 20:59 Bisacodyl (Dulcolax) 10 mg DAILYPRN PRN RECTAL Constipation 06/19/20 21:00 09/17/20 20:59 Cefepime HCl 2 gm/ Dextrose 55 ml @ 110 mls/hr Q8H IVPB 06/19/20 23:30 06/26/20 23:29 06/20/20 08:49 Dextrose (Dextrose 50%) 25 ml Q30M PRN IV Hypoglycemia 06/19/20 21:00 09/17/20 20:59 Dextrose (Dextrose 50%) 50 ml Q30M PRN IV Hypoglycemia 06/19/20 21:00 09/17/20 20:59 Diphenhydramine HCl (Benadryl) 50 mg Q6H PRN IVP Itching 06/20/20 03:00 07/20/20 02:59 06/20/20 03:26 Docusate Sodium (Colace) 100 mg EVERY 12 HOURS ORAL 06/19/20 21:00 07/19/20 20:59 06/20/20 08:45 Enoxaparin Sodium (Lovenox) 40 mg Q24H SUBQ 06/20/20 09:00 09/18/20 08:59 06/20/20 08:47 Hydralazine HCl (Apresoline) 10 mg Q4H PRN IV SBP >160 06/19/20 21:00 09/17/20 20:59 06/20/20 08:48 Insulin Aspart (NovoLOG) BEFORE MEALS AND HS SUBQ 06/19/20 21:00 09/17/20 20:59 06/20/20 06:30 Insulin Detemir (Levemir) 5 units DAILY SUBQ 06/20/20 09:00 09/18/20 08:59 06/20/20 09:22 Lorazepam (Ativan 2mg/ml 1ml) 0.5 mg Q4H PRN IV For Anxiety 06/19/20 21:00 06/26/20 20:59 Metronidazole 100 ml @ 100 mls/hr Q8H IVPB 06/20/20 02:00 06/27/20 01:59 06/20/20 03:21 Ondansetron HCl (Zofran) 4 mg Q6H PRN IVP Nausea & Vomiting 06/19/20 21:00 07/19/20 20:59 Oxycodone HCl (Roxicodone) 5 mg Q4H PRN ORAL Breakthrough Pain 06/19/20 21:00 06/26/20 20:59 Oxycodone HCl (Roxicodone) 5 mg Q6H PRN ORAL severe pain 06/19/20 21:00 06/26/20 20:59 06/20/20 02:04 Polyethylene Glycol (Miralax) 17 gm DAILYPRN PRN ORAL Constipation 06/19/20 21:00 07/19/20 20:59 Prochlorperazine (Compazine) 10 mg Q6H PRN IVP Nausea & Vomiting-2ND 06/19/20 21:00 07/19/20 20:59 Sodium Chloride 1,000 ml @ 75 mls/hr [id number] IVLG 06/19/20 22:00 07/19/20 21:59 06/19/20 23:52 Tramadol HCl (Ultram) 50 mg Q6H PRN ORAL moderate pain 06/19/20 21:00 06/26/20 20:59 06/20/20 08:47 Vancomycin HCl (Vanco pharmacy to dose) 1 ea DAILY PRN MISC Per rx protocol 06/19/20 22:15 07/19/20 22:14 Vancomycin HCl 1 gm/Dextrose 275 ml @ 183.708 mls/hr Q12H IVPB 06/20/20 10:00 06/25/20 09:59 Assessment/Plan Problem List: (1) Dyspnea ICD Codes: R06.00 - Dyspnea, unspecified SNOMED: 162924227 Qualifiers: Qualified Codes: R06.00 - Dyspnea, unspecified (2) Pain in limb ICD Codes: M79.609 - Pain in limb SNOMED: 98633990 (3) Upper respiratory infection ICD Codes: J06.9 - Acute upper respiratory infection, unspecified SNOMED: 60904130 (4) Dehydration ICD Codes: E86.0 - Dehydration SNOMED: 52477145 (5) Throat pain ICD Codes: R07.0 - Pain in throat SNOMED: 517180272 (6) Anemia ICD Codes: D64.9 - Anemia SNOMED: 509905911 (7) Chest wall pain ICD Codes: R07.89 - Other chest pain SNOMED: 092210502 (8) Diverticulosis ICD Codes: K57.90 - Diverticulosis of intestine, part unspecified, without perforation or abscess without bleeding SNOMED: 153762452 (9) Hyperglycemia ICD Codes: R73.9 - Hyperglycemia, unspecified SNOMED: 57560031 (10) Proteinuria ICD Codes: R80.9 - Proteinuria SNOMED: 86279859 (11) Cervical cancer ICD Codes: C53.9 - Malignant neoplasm of cervix uteri, unspecified SNOMED: 609286541 (12) Acute pharyngitis ICD Codes: J02.9 - Acute pharyngitis, unspecified SNOMED: 680336043 (13) Hip pain ICD Codes: M25.559 - Pain in unspecified hip SNOMED: 85178539 (14) Abdominal pain ICD Codes: R10.9 - Unspecified abdominal pain SNOMED: 74810392 (15) Chest pain ICD Codes: R07.9 - Chest pain, unspecified SNOMED: 84382557 (16) Pharyngitis ICD Codes: J02.9 - Acute pharyngitis, unspecified SNOMED: 726368795 (17) HTN (hypertension) ICD Codes: I10 - HTN (hypertension) SNOMED: 53654319 (18) Muscle spasm of back ICD Codes: M62.830 - Muscle spasm of back SNOMED: 248060303 (19) Chronic pain ICD Codes: G89.29 - Other chronic pain SNOMED: 43096885 (20) DM (diabetes mellitus) ICD Codes: E11.9 - DM (diabetes mellitus) SNOMED: 82502838 (21) UTI (lower urinary tract infection) ICD Codes: N39.0 - Urinary tract infection, site not specified SNOMED: 5966870 (22) ACS (acute coronary syndrome) ICD Codes: I24.9 - Acute ischemic heart disease, unspecified SNOMED: 470961438 (23) Postoperative pain ICD Codes: G89.18 - Other acute postprocedural pain SNOMED: 885461841 (24) Radiculopathy of cervical spine ICD Codes: M54.12 - Radiculopathy of cervical spine SNOMED: 85049851 (25) Opiate withdrawal ICD Codes: F11.23 - Opioid dependence with withdrawal SNOMED: 35932583 (26) Diabetes mellitus out of control ICD Codes: E11.65 - Diabetes mellitus out of control SNOMED: 161701847 (27) Degenerative disc disease, cervical ICD Codes: M50.30 - Degenerative disc disease, cervical SNOMED: 31622200 (28) Hip osteoarthritis ICD Codes: M16.9 - Hip osteoarthritis SNOMED: 513639807 (29) Voiding difficulty ICD Codes: R39.89 - Other symptoms and signs involving the genitourinary system SNOMED: 103490944 (30) Voiding difficulty ICD Codes: R39.89 - Other symptoms and signs involving the genitourinary system SNOMED: 303752858 (31) H/O fracture of right hip ICD Codes: Z87.81 - H/O fracture of right hip SNOMED: 509432769 (32) Spondylosis of cervical spine ICD Codes: M47.812 - Spondylosis of cervical spine SNOMED: 254338503 (33) COVID-19 ICD Codes: U07.1 - COVID-19 SNOMED: 723437584 (34) cervical myalgia (35) tension headacke Assessment/Plan: covid + with headache nad fevers. 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 I have a high level of concern because . Patient is at high risk for . Plan of care/treatment include . Patient care is expected to be greater than 2 midnights. OBSERVATION level of care is warranted for this patient. Patient is a 89 year old with who presents with . Patient will be admitted for 1 midnight, but if additional night(s) is/are necessary, patient will be converted to inpatient status for the entire hospitalization Disposition: Once the patient is stable to leave the hospital, I anticipate the patient will likely be discharged to the following environment: Estimated discharge date: I spent 70 minutes on this patient's case, and minutes was dedicated to coun seling and/or care coordination. MIPS ([employer]it-based Incentive Payment System) Applicable CPT: 76272, 79057 CHECK ALL THAT ARE MET: Measure #5 (CHF): All ages. Prescribe TRINA/ARB upon discharge for patients with left ventricular systolic dysfunction. If not, the reason is clearly documented in the medical chart. Measure #8 (CHF): All ages. Prescribe a beta reggie upon discharge for patients with left ventricular systolic dysfunction. If not, the reason is clearly documented in the medical chart. Measure #47 Advance care plan or surrogate decision maker documented in the medical record. Measure #130 The provider has documented, updated, or reviewed the patients current medication list and has documented it in the patients note. Measure #374 (All): Send report to referring provider. Measure #407(Sepsis due to MSSA bacteremia): Age 18+ Patient treated with a beta-lactam antibiotic (Nafcillin, Oxacillin or Cefazolin) as definitive therapy. MEDICAL COMPLEXITY High complexity medical decision making (need 2/3 categories) Problem - need 4 points Acute/new problem with new plan for workup (4 points, 1 max) Acute/new problem without additional workup (3 points, 1 max) Unstable chronic problem actively being managed (2 point each, 2 max) Stable chronic problem actively being managed (1 point each, 2 max) Self-limited/transient process (constipation, muscle ache, etc) (1 point each, 2 max) Data - need 4 points Reviewed labs/imaging studies (1 points, 2 max) Independent review of imaging (EKG, xrays, etc) (2 points, 2 max) Discussed case with consult/other MD/RN (2 points, 2 max) High Risk - qualify if have one of the following: Severe exacerbation of acute problem, acute mental status change, IV narcotics, monitoring drug levels (vancomycin, INR, tacrolimus etc) Mandeep Gracia MD Jun 20, 2020 09:31
--- NOTE | 2020-06-20 09:31 | Neurology Progress Note ---
Interim History Interim History Interim History 9-year-old female presents with body aches, chills, cough. Febrile in triage. Was seen here on 06/13 and admitted. Was transferred to [facility] on 06/15 for catheterization. Was sent home that day. States shortly after she started developing fevers and chills and body aches. 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 Physical Exam Last Vital Signs Date Time Temp Pulse Resp B/P (MAP) Pulse Ox O2 Delivery O2 Flow Rate FiO2 06/20/20 08:49 121 174/113 06/20/20 08:00 101.8 22 97 06/20/20 00:12 Room Air Laboratory Tests Test 06/19/20 12:05 06/19/20 12:10 06/19/20 13:05 06/20/20 00:25 Urine Color Yellow Urine Appearance Clear Urine pH 6.5 (4.5-8.0) Urine Specific [place] 1.015 (1.005-1.035) Urine Protein 2+ (NEGATIVE) H Urine Glucose (UA) 4+ (NEGATIVE) H Urine Ketones 2+ (NEGATIVE) H Urine Blood Negative (NEGATIVE) Urine Nitrite Negative (NEGATIVE) Urine Bilirubin Negative (NEGATIVE) Urine Urobilinogen 4 MG/DL (0.0-1.0) H Urine Leukocyte Esterase Negative (NEGATIVE) Urine RBC 0 /HPF (0 - 2) Urine WBC 0-2 /HPF (0 - 2) Urine Squamous Epithelial Cells Few /LPF (NONE/OCC) Urine Bacteria Few /HPF (NONE) White Blood Count 6.2 K/UL (4.8-10.8) Red Blood Count 5.19 M/UL (4.20-5.40) Hemoglobin 14.3 G/DL (12.0-16.0) Hematocrit 43.3 % (37.0-47.0) Mean Corpuscular Volume 83 FL (80-99) Mean Corpuscular Hemoglobin 27.6 PG (27.0-31.0) Mean Corpuscular Hemoglobin Concent 33.1 G/DL (32.0-36.0) Red Cell Distribution Width 14.2 % (11.6-14.8) Platelet Count 201 K/UL (150-450) Mean Platelet Volume 10.4 FL (6.5-10.1) H Neutrophils (%) (Auto) 71.1 % (45.0-75.0) Lymphocytes (%) (Auto) 12.3 % (20.0-45.0) L Monocytes (%) (Auto) 13.4 % (1.0-10.0) H Eosinophils (%) (Auto) 0.3 % (0.0-3.0) Basophils (%) (Auto) 3.0 % (0.0-2.0) H Prothrombin Time 12.2 SEC (9.30-11.50) H Prothromb Time International Ratio 1.1 (0.9-1.1) Activated Partial Thromboplast Time 31 SEC (23-33) D-Dimer 0.99 mg/L FEU (0.00-0.49) H Sodium Level 133 MMOL/L (136-145) L Potassium Level 3.7 MMOL/L (3.5-5.1) Chloride Level 97 MMOL/L (98-107) L Carbon Dioxide Level 28 MMOL/L (21-32) Anion Gap 8 mmol/L (5-15) Blood Urea Nitrogen 10 mg/dL (7-18) Creatinine 1.0 MG/DL (0.55-1.30) Estimat Glomerular Filtration Rate > 60 mL/min (>60) Glucose Level 257 MG/DL (74-106) H Calcium Level 8.8 MG/DL (8.5-10.1) Ferritin 121 NG/ML (8-388) Total Bilirubin 0.3 MG/DL (0.2-1.0) Aspartate Amino Transf (AST/SGOT) 37 U/L (15-37) Alanine Aminotransferase (ALT/SGPT) 35 U/L (12-78) Alkaline Phosphatase 62 U/L (46-116) Lactate Dehydrogenase 328 U/L (81-234) H Troponin I 0.000 ng/mL (0.000-0.056) C-Reactive Protein, Quantitative 21.4 mg/dL (0.00-0.90) H Pro-B-Type Natriuretic Peptide Pending Total Protein 8.1 G/DL (6.4-8.2) Albumin 3.3 G/DL (3.4-5.0) L Globulin 4.8 g/dL Albumin/Globulin Ratio 0.7 (1.0-2.7) L Lactic Acid Level 1.20 mmol/L (0.4-2.0) POC Whole Blood Glucose 235 MG/DL (74-106) H Test 06/20/20 06:26 06/20/20 09:05 POC Whole Blood Glucose 218 MG/DL (74-106) H Pending Head: normocophalic Neck: no rigidity EENT: benign Neurologic Exam Mental Status: awake, oriented x4 Speech: normal speech Cranial Nerves III, IV, : PERRLA Cranial Nerve VII: no facial asymmetry Gait: stable Objective no nuchal rigidity moves all 4 Impression/Recommendations Problems: (1) Pain in limb (2) Upper respiratory infection (3) Dehydration (4) Throat pain (5) Anemia (6) Chest wall pain (7) Diverticulosis (8) Hyperglycemia (9) Proteinuria (10) Cervical cancer (11) Acute pharyngitis (12) Hip pain (13) Abdominal pain (14) Chest pain (15) Pharyngitis (16) HTN (hypertension) (17) Muscle spasm of back (18) Chronic pain (19) DM (diabetes mellitus) (20) UTI (lower urinary tract infection) (21) ACS (acute coronary syndrome) (22) Postoperative pain (23) Radiculopathy of cervical spine (24) Opiate withdrawal (25) Diabetes mellitus out of control (26) Degenerative disc disease, cervical (27) Hip osteoarthritis (28) Voiding difficulty (29) Voiding difficulty (30) H/O fracture of right hip (31) Spondylosis of cervical spine (32) cervical myalgia (33) tension headacke (34) Dyspnea (35) COVID-19 Diagnostic Impression COVID pneumonia and sepsis Headache likely 2/2 to above Unlikely meningitis at this point would defer LP cont atb and medical support will follow Mandeep Gracia MD Jun 20, 2020 09:31
--- NOTE | 2020-06-20 10:15 | NUR ---
NURSE NOTES: Called Lab and spoke with Sarai regarding RN is unable to draw blood.
[2020-06-20] MEDS: Vancomycin 1gm in D5W 275ml IVPB SCH ×2 (10:58→21:16)
[2020-06-20 12:00] VITALS: BP 156/106
--- NOTE | 2020-06-20 12:00 | NUR ---
NURSE NOTES: Patient temperature went up to 100.9. offered Suppository Tylenol. Patient refused to take suppository and refused have any kind of PO meds.
--- NOTE | 2020-06-20 15:38 | NUR ---
CASE MANAGEMENT: Faxed clinical info (face sheet / ER MD notes / lab and imaging reports / progress notes) to [facility] @ [phone]
--- NOTE | 2020-06-20 15:45 | NUR ---
NURSE NOTES: For high BP and nausea, RN gave IV medications.
[2020-06-20 16:00] VITALS: BP 161/111
--- NOTE | 2020-06-20 16:38 | Infectious Diseases Prog Note ---
Assessment/Plan Assessment/Plan Full consult dictated: A) 1) covid-19 infection, pna, ? sepsis, fevers, headache 2) doubt meningitis 3) allergies - pcn P) 1) vancomycin, cefepime, flagyl, doxycycline 2) no indication for covid-19 treatment 3) will f/u on cultures 4) thank you Subjective Allergies: Coded Allergies: PENICILLINS (Unverified Allergy, Unknown, 12/04/14) Objective Last 24 Hour Vital Signs Date Time Temp Pulse Resp B/P (MAP) Pulse Ox O2 Delivery O2 Flow Rate FiO2 06/20/20 15:38 161/111 06/20/20 12:00 117 06/20/20 12:00 100.4 120 20 156/106 (123) 97 06/20/20 09:19 99.8 06/20/20 09:00 Room Air 06/20/20 08:49 121 174/113 06/20/20 08:48 174/113 06/20/20 08:00 101.8 121 22 174/113 (133) 97 06/20/20 08:00 113 06/20/20 04:00 109 06/20/20 04:00 99.4 105 20 154/78 (103) 93 06/20/20 00:12 Room Air 06/20/20 00:00 105 06/20/20 00:00 98.2 102 20 150/75 (100) 94 06/19/20 23:00 99.5 108 18 162/98 100 Room Air 06/19/20 23:00 99.5 108 18 162/98 100 Room Air 06/19/20 22:43 99.5 06/19/20 22:15 99.6 110 18 158/92 100 Room Air 06/19/20 19:13 100.1 104 16 161/92 100 Room Air 06/19/20 17:01 102.4 Height (Feet): 5 Height (Inches): 3.00 Weight (Pounds): 200 Microbiology Date/Time Source Procedure Growth Status 06/19/20 13:05 Rectum Received 06/19/20 12:10 Nasopharynx SARS-CoV-2 RdRp Gene Assay - Final Complete Laboratory Tests Test 06/20/20 00:25 06/20/20 06:26 06/20/20 09:05 06/20/20 12:20 POC Whole Blood Glucose 235 MG/DL (74-106) H 218 MG/DL (74-106) H Pending Pending Current Medications Medications (Trade) Dose Ordered Sig/Mando Route PRN Reason Start Time Stop Time Status Last Admin Dose Admin Acetaminophen (Tylenol) 650 mg Q4H PRN ORAL Temp >100.5 06/19/20 21:00 07/19/20 20:59 06/20/20 08:49 Acetaminophen (Tylenol) 650 mg Q4H PRN ORAL Mild Pain (Pain Scale 1-3) 06/19/20 21:00 07/19/20 20:59 Albuterol Sulfate (Proventil MDI) 2 puff Q4H PRN INH Shortness of Breath 06/19/20 22:00 09/17/20 21:59 Baclofen (Lioresal) 5 mg TID PRN ORAL muscle spasm 06/19/20 21:00 07/19/20 20:59 Bisacodyl (Dulcolax) 10 mg DAILYPRN PRN RECTAL Constipation 06/19/20 21:00 09/17/20 20:59 Cefepime HCl 2 gm/ Dextrose 55 ml @ 110 mls/hr Q8H IVPB 06/19/20 23:30 06/26/20 23:29 06/20/20 15:31 Dextrose (Dextrose 50%) 25 ml Q30M PRN IV Hypoglycemia 06/19/20 21:00 09/17/20 20:59 Dextrose (Dextrose 50%) 50 ml Q30M PRN IV Hypoglycemia 06/19/20 21:00 09/17/20 20:59 Diphenhydramine HCl (Benadryl) 50 mg Q6H PRN IVP Itching 06/20/20 03:00 07/20/20 02:59 06/20/20 15:38 Docusate Sodium (Colace) 100 mg EVERY 12 HOURS ORAL 06/19/20 21:00 07/19/20 20:59 06/20/20 08:45 Enoxaparin Sodium (Lovenox) 40 mg Q24H SUBQ 06/20/20 09:00 09/18/20 08:59 06/20/20 08:47 Hydralazine HCl (Apresoline) 10 mg Q4H PRN IV SBP >160 06/19/20 21:00 09/17/20 20:59 06/20/20 15:38 Insulin Aspart (NovoLOG) BEFORE MEALS AND HS SUBQ 06/19/20 21:00 09/17/20 20:59 06/20/20 11:30 Insulin Detemir (Levemir) 5 units DAILY SUBQ 06/20/20 09:00 09/18/20 08:59 06/20/20 09:22 Lorazepam (Ativan 2mg/ml 1ml) 0.5 mg Q4H PRN IV For Anxiety 06/19/20 21:00 06/26/20 20:59 Metronidazole 100 ml @ 100 mls/hr Q8H IVPB 06/20/20 02:00 06/27/20 01:59 06/20/20 10:11 Ondansetron HCl (Zofran) 4 mg Q6H PRN IVP Nausea & Vomiting 06/19/20 21:00 07/19/20 20:59 06/20/20 15:37 Oxycodone HCl (Roxicodone) 5 mg Q4H PRN ORAL Breakthrough Pain 06/19/20 21:00 06/26/20 20:59 Oxycodone HCl (Roxicodone) 5 mg Q6H PRN ORAL severe pain 06/19/20 21:00 06/26/20 20:59 06/20/20 02:04 Polyethylene Glycol (Miralax) 17 gm DAILYPRN PRN ORAL Constipation 06/19/20 21:00 07/19/20 20:59 Prochlorperazine (Compazine) 10 mg Q6H PRN IVP Nausea & Vomiting-2ND 06/19/20 21:00 07/19/20 20:59 Sodium Chloride 1,000 ml @ 75 mls/hr [id number] IVLG 06/19/20 22:00 07/19/20 21:59 06/20/20 12:00 Tramadol HCl (Ultram) 50 mg Q6H PRN ORAL moderate pain 06/19/20 21:00 06/26/20 20:59 06/20/20 08:47 Vancomycin HCl (Vanco pharmacy to dose) 1 ea DAILY PRN MISC Per rx protocol 06/19/20 22:15 07/19/20 22:14 Vancomycin HCl 1 gm/Dextrose 275 ml @ 183.708 mls/hr Q12H IVPB 06/20/20 10:00 06/25/20 09:59 06/20/20 10:58 Mike Urias MD Jun 20, 2020 16:38
--- NOTE | 2020-06-20 17:30 | NUR ---
NURSE NOTES: Patient has not been eating all day.
--- NOTE | 2020-06-20 19:15 | NUR ---
NURSE HAND-OFF REPORT: Important Events on Shift:N/A Patient Status: Nausea Diet: CCHO Pending Orders: N/A Pending Results/Labs:Morning lab Pending MD notification:N/A Latest Vital Signs: Temperature 101.3 , Pulse 136 , B/P 161 /111 , Respiratory Rate 22 , O2 SAT 98 , Room Air, O2 Flow Rate . Vital Sign Comment: Stable EKG Rhythm: Sinus Tachycardia Rhythm change?: N MD Notified?: - MD Response: Latest Mathias Fall Score: 45 Fall Risk: High Risk Safety Measures: Call light Within Reach, Bed Alarm Zone 1, Side Rails Side Rails x2, Bed position Low and Locked. Fall Precautions: Yellow Socks Yellow Gown Patient Fall Education Report given to Ashley/RN.
--- NOTE | 2020-06-20 19:25 | NUR ---
NURSE NOTES: RECEIVED REPORT FROM MELISSA BENNETT. PT IN BED ASLEEP, AROUSABLE. A/O X4. NO RESP DISTRESS NOTED. UPHOLSTERY CLEANER IN PLACE. LEFT HAND IV 20G INFUSING NS AT 75CC/HR, NO S/S INFILTRATION NOTED. BED IN LOW POSITION & LOCKED. SIDE RAILS UP X2. CALL LIGHT WITH IN REACH. CONTINUE ON PLAN OF CARE.
--- NOTE | 2020-06-20 19:28 | General Progress Note ---
Subjective Allergies: Coded Allergies: PENICILLINS (Unverified Allergy, Unknown, 12/04/14) Subjective No acute events overnight per nursing. Telemetry reviewed. Patient still sinus tachycardia. No other events. Feels tired and fatigued. No cough or shortness of breath. Headache is much improved. Still with generalized body aches. Unable to draw labs this AM. RN following up Review of systems: Constitutional: Denies: chills, diaphoresis, fever, malaise, weakness, HEENT: +headache, but improved, no vision changes Cardiovascular: Denies: chest pain, edema, lightheadedness, palpitations Respiratory: Denies: cough, orthopnea, shortness of breath, SOB with excertion, SOB at rest, Gastrointestinal/Abdominal: Denies: abdominal pain, black stools, blood in stool, constipation, diarrhea, nausea, poor fluid intake vomiting, other Genitourinary: Denies: burning, discharge, frequency, Neurologic/Psychiatric: Denies: headache, numbness, paresthesia, new weakness, other Endocrine: Denies: excessive sweating, flushing, intolerance to cold, MSK: denies joint pains, swelling, stiffness Hematologic/Lymphatic: Denies: anemia, easy bleeding, easy bruising, Objective Last 24 Hour Vital Signs Date Time Temp Pulse Resp B/P (MAP) Pulse Ox O2 Delivery O2 Flow Rate FiO2 06/20/20 16:00 136 06/20/20 16:00 101.3 112 22 161/111 (128) 98 06/20/20 15:38 161/111 06/20/20 12:00 117 06/20/20 12:00 100.4 120 20 156/106 (123) 97 06/20/20 09:19 99.8 06/20/20 09:00 Room Air 06/20/20 08:49 121 174/113 06/20/20 08:48 174/113 06/20/20 08:00 101.8 121 22 174/113 (133) 97 06/20/20 08:00 113 06/20/20 04:00 109 06/20/20 04:00 99.4 105 20 154/78 (103) 93 06/20/20 00:12 Room Air 06/20/20 00:00 105 06/20/20 00:00 98.2 102 20 150/75 (100) 94 06/19/20 23:00 99.5 108 18 162/98 100 Room Air 06/19/20 23:00 99.5 108 18 162/98 100 Room Air 06/19/20 22:43 99.5 06/19/20 22:15 99.6 110 18 158/92 100 Room Air 06/19/20 19:13 100.1 104 16 161/92 100 Room Air Intake and Output 06/19/20 06/20/20 19:00 07:00 Intake Total 200 ml Balance 200 ml Intake Oral 200 ml # Voids 3 Laboratory Tests 06/20/20 00:25: POC Whole Blood Glucose 235H 06/20/20 06:26: POC Whole Blood Glucose 218H 06/20/20 09:05: POC Whole Blood Glucose [Pending] 06/20/20 12:20: POC Whole Blood Glucose [Pending] Height (Feet): 5 Height (Inches): 3.00 Weight (Pounds): 200 Objective General: WDWN /female in NAD, A&O x 4, resting in bed, tired appearing HEENT: Normocephalic cephalic atraumatic, pupils equal round reactive to light and accommodation, nares patent and no symmetrical, no tonsillar exudates, mucous membranes moist CV: Tachycardic, regular rhythm, no murmurs, rubs, or gallops Pulm: Lungs clear to auscultation bilaterally. No wheezes, rhonchi, or rales GI: Soft, nontender, nondistended, bowel sounds present Neuro: CN 2-12 intact bilaterally, no focal signs. Ext: No lower extremity edema bilaterally Skin: no rashes lesions or ulcers Msk: Joints symmetrical in upper extremity and lower extremity bilaterally, no joint swelling. Lymph: No lymphadenopathy in upper extremity and lower extremity Assessment/Plan Assessment/Plan: This is a 49 year old female p/w sepsis due to COVID pneumonia, headache, neck pain, #Covid pneumonia #LLL opacity, rule out superimposed HAP vs. CAP #Sepsis (fever, tachycardia) due to COVID #fatigue #myalgias #PCN allergy -> hives/itching. No anaphylaxis. Has gotten cephalosporins without any issues. > LDH 328, CRP 21.4, lactate 1.2, d-dimer 0.99 > onset of symptoms 06/17/20 -Admit to telemetry -Blood cultures -Vanc per pharm (06/19 - ) -Cefepime 2gm Q8hr (06/19 - ) -Flagyl (06/19 - ) -Doxycyline (06/20 - ) -Abx per ID - Gentle IV fluids - pulmonary hygeine - albuterol PRN -Appreciate ID consult: Dr. Steele -Consider Dex/Remdesivir if patient becomes hypoxic. D/w ID #hyponatremia, suspect hypovolemic - trend sodium. RN to draw labs - IV fluids as above #Severe headache, suspect due to COVID. R/o intracranial process (CT head negative). R/o meningitis (tho less likely) > Doubt meningitis per Neuro and ID #nausea #possible cervical radiculopathy from last admit > Unable to perform LP in Ed. Ok to defer per Neuro -Appreciate neurology consult: Dr. Gracia -Appreciate ID consult: Dr. Steele - Treat with broad spectrum abx - Vanc per pharm (06/19 - ) - Cefepime 2gm Q8hr (06/19 - ) - abx per ID -Consider MRI C spine if able (previously unable to tolerate #s/p Chest Pain #Sinus tachycardia suspected secondary to sepsis from Covid #right groin pain. No signs of hematoma on exam. Pulses palpable. Has pain all over body. RF - , female, dm2 > Dobutamine stress test positive >EKG reviewed on admission - s/p cardiac cath at OSH in [facility]. Dr. Mcgee - Cardiology consulted: Dr. Dos Santos - Continue Statin - troponin - EKG prn for chest pain - Keep K>4 and Mag >2 #Bilateral Lower extremity swelling - venous duplex to rule out DVT: neg #Right side goiter #s/p thyroidectomy - lost to follow up - repeat Thyroid US: reviewed - endocrinology consult: Dr. Pradhan #h/o cervical cancer - lost to follow up - outpatient follow up with oncology - patient understands importance of follow up #DM2 - Insulin dependent DM2 - Takes 20U of Long acting insulin in AM - Will give 5 units for now and titrate up - ACHS BG - SSI - hypoglycemia protocol - diabetic diet #HTN - Increase back to amlodipine 10mg daily - holding lisinopril. will restart pending progression of illness - hydralazine PRN #Hx of Asthma - prn albuterol treatment #HLD - Continue atorvastatin FENPPX DVTPPX: lovenox Fluids: as above Diet: Diabetic Lines: PIV PT/OT: pending Code status: Full Dispo: Home vs. Rehab Reason for Continued Hospitalization: COVID MIPS ([employer]-based Incentive Payment System) Applicable CPT: 56998, 19807 CHECK ALL THAT ARE MET: [] Measure #5 (CHF): All ages. Prescribe TRINA/ARB upon discharge for patients with left ventricular systolic dysfunction. If not, the reason is clearly documented in the medical chart [] Measure #8 (CHF): All ages. Prescribe a beta reggie upon discharge for patients with left ventricular systolic dysfunction. If not, the reason is clearly documented in the medical chart. [x] Measure #47: Advance care plan or surrogate decision maker documented in the medical record. [x] Measure #130 The provider has documented, updated, or reviewed the patients current medication list and has documented it in the patients note. [] Measure #374 (All): Send report to referring provider. [] Measure #407(Sepsis due to MSSA bacteremia): Age 18+ Patient treated with a beta-lactam antibiotic (Nafcillin, Oxacillin or Cefazolin) as definitive therapy. MEDICAL COMPLEXITYHigh complexity medical decision making (need 2/3 categories)Problem - need 4 points [x]Acute/new problem with new plan for workup (4 points, 1 max) [] Acute/new problem without additional workup (3 points, 1 max) [] Unstable chronic problem actively being managed (2 point each, 2 max) [x] Stable chronic problem actively being managed (1 point each, 2 max) [x] Self-limited/transient process (constipation, muscle ache, etc) (1 point each, 2 max) Data - need 4 points [x] Reviewed labs/imaging studies (1 points, 2 max) [x] Independent review of imaging (EKG, xrays, etc) (2 points, 2 max) [x] Discussed case with consult/other MD/RN (2 points, 2 max) High Risk - qualify if have one of the following: [x] Severe exacerbation of acute problem, acute mental status change, IV narcotics, monitoring drug levels (vancomycin, INR, tacrolimus etc) I spent 38 minutes on this patient's case, and 22 mins was dedicated to counseling and/or care coordination. Discussed with ID, Neuro, Cardiology Time of note may not reflect time of encounter Matt Hernández D.O. Jun 20, 2020 19:28
[2020-06-20 20:00] VITALS: BP 150/89
[2020-06-20 20:06] LABS: BASOPHILS % (AUTO) 1.4 % (0.0-2.0); HEMATOCRIT 43.7 % (37.0-47.0); HEMOGLOBIN 14.4 G/DL (12.0-16.0); LYMPHOCYTES % (AUTO) 7.9 % (20.0-45.0); MEAN CORPUSCULAR VOLUME 82 FL (80-99); MONOCYTES % (AUTO) 7.3 % (1.0-10.0); NEUTROPHILS % (AUTO) 83.4 % (45.0-75.0); PLATELET COUNT 205 K/UL (150-450); RED BLOOD COUNT 5.33 M/UL (4.20-5.40); RED CELL DISTRIBUTION WIDTH 14.1 % (11.6-14.8); WHITE BLOOD COUNT 5.6 K/UL (4.8-10.8)
[2020-06-20 20:21] LABS: ALANINE AMINOTRANSFERASE 56 U/L (12-78); ALBUMIN 2.8 G/DL (3.4-5.0); ALBUMIN/GLOBULIN RATIO 0.6 (1.0-2.7); ALKALINE PHOSPHATASE 64 U/L (46-116); ANION GAP 16 mmol/L (5-15); ASPARTATE AMINO TRANSFERASE 52 U/L (15-37); BILIRUBIN,TOTAL 0.3 MG/DL (0.2-1.0); BLOOD UREA NITROGEN 11 mg/dL (7-18); CALCIUM 8.4 MG/DL (8.5-10.1); CARBON DIOXIDE 18 MMOL/L (21-32); CHLORIDE 97 MMOL/L (98-107); CREATININE 0.8 MG/DL (0.55-1.30); POTASSIUM 3.4 MMOL/L (3.5-5.1); SODIUM 131 MMOL/L (136-145)
[2020-06-20] MEDS: Doxycycline Monohydrate 100mg ORAL SCH (21:00)
--- NOTE | 2020-06-20 23:00 | NUR ---
NURSE NOTES: PT C/O PAIN, STATED UNABLE TO TAKE PO PAIN MEDS D/T N/V. MADE AWARE WITJ NEW ORDERS NOTED & CARRIED OUT.
[2020-06-20] MEDS: Morphine Sulfate 2mg/ml Inj(IV/IM USE ONLY) IVP PRN (23:08)
[2020-06-21] VITALS: BP 168/111
[2020-06-21] MEDS: Morphine Sulfate 2mg/ml Inj(IV/IM USE ONLY) IVP PRN (03:19)
[2020-06-21 04:00] VITALS: BP 143/98
[2020-06-21] MEDS: NovoLOG Insulin Flexpen SUBQ SCH ×6 (06:26→21:00)
--- NOTE | 2020-06-21 07:10 | NUR ---
NURSE HAND-OFF REPORT: Important Events on Shift:[C/O PAIN & N/V PRN MEDS GIVE] Patient Status: [STABLE] Diet: [CCHO LOW] Pending Orders: [] Pending Results/Labs:[] Pending MD notification:[] Latest Vital Signs: Temperature 98.1 , Pulse 113 , B/P 143 /98 , Respiratory Rate 18 , O2 SAT 97 , Room Air, O2 Flow Rate . Vital Sign Comment: [] EKG Rhythm: Sinus Tachycardia Rhythm change?: N MD Notified?: - MD Response: Latest Mathias Fall Score: 45 Fall Risk: High Risk Safety Measures: Call light Within Reach, Bed Alarm Zone 1, Side Rails Side Rails x2, Bed position Low and Locked. Fall Precautions: Yellow Socks Yellow Gown Patient Fall Education Report given to [MELISSA MOSS].
--- NOTE | 2020-06-21 07:20 | NUR ---
NURSE NOTES: Received patient in bed. Awake, A/O x4. On room air, respirations unlabored. Bed low and locked, side rails up x2, calll ight within reach with return demonstration.
[2020-06-21 08:00] VITALS: BP 140/99
[2020-06-21] MEDS ORDERED: Morphine Sulfate 2mg/ml Inj(IV/IM USE ONLY) IVP PRN ×2 (08:15)
[2020-06-21] MEDS: Cefepime HCl 2 GM in D5W 55 ML IVPB SCH ×2 (08:26→15:24)
[2020-06-21] MEDS: Enoxaparin 40mg Inj SUBQ SCH (08:34)
[2020-06-21 08:53] LABS: PHOSPHORUS 3.3 MG/DL (2.5-4.9)
[2020-06-21] MEDS: Docusate 100mg cap ORAL SCH ×2 (09:00→20:41)
[2020-06-21] MEDS: Doxycycline Monohydrate 100mg ORAL SCH (09:00)
[2020-06-21] MEDS ORDERED: Levemir Flexpen SUBQ SCH (09:00)
[2020-06-21] MEDS: Lisinopril 20mg tab ORAL SCH (09:00)
--- NOTE | 2020-06-21 09:00 | NUR ---
NURSE NOTES: Patient refused all 0900 PO medications. Patient re-educated on risks and benefits. Patient states "I get nauseous when i take any oral medications." Antiemetics offered. Patient given saltine crackers fort nausea. Meds returned to [facility].
[2020-06-21 09:58] LABS: BASOPHILS % (AUTO) 1.1 % (0.0-2.0); HEMATOCRIT 45.5 % (37.0-47.0); HEMOGLOBIN 15.1 G/DL (12.0-16.0); LYMPHOCYTES % (AUTO) 16.3 % (20.0-45.0); MEAN CORPUSCULAR VOLUME 81 FL (80-99); MONOCYTES % (AUTO) 11.5 % (1.0-10.0); NEUTROPHILS % (AUTO) 71.2 % (45.0-75.0); PLATELET COUNT 242 K/UL (150-450); RED BLOOD COUNT 5.62 M/UL (4.20-5.40); RED CELL DISTRIBUTION WIDTH 14.4 % (11.6-14.8); WHITE BLOOD COUNT 3.9 K/UL (4.8-10.8)
--- NOTE | 2020-06-21 09:59 | Consultation ---
History of Present Illness General Chief Complaint: Upper Respiratory Illness Reason for Consultation: hyponatremia Present Illness HPI This is a 49-year-old female with a past medical history of diabetes mellitus type 2, hypertension, asthma, history of thyroid cancer status post th yroidectomy, history of cervical cancer who presents with a 3-day history of generalized fatigue, muscle aches/pains, chills, and fever to 102. Patient also with generalized headache, bilateral neck pain, photophobia, and nausea. She denies any recent trauma or MVAs. She denies any blurry vision, vision changes, numbness, tingling, or focal weakness. She denies any cough or shortness of breath, no chest pain. No abdominal pain. No signs of bleeding. The patient was recently admitted for Chest pain and found to have a positive dobutamine stress test. She was then transferred to [facility] on 05/16 for cardiac cath which was negative per patient. After cath the patient felt well when she got home she had the above symptoms. She has no known COVID contacts. In the ER the patient was found to be febrile to 102, tachycardic to 123. Chest x-ray reviewed showing possible left lower lobe infiltrate. Covid test was positive. CT head was performed which was normal. A lumbar puncture was attempted due to concern for meningitis. She was given antibiotics and fluids. She was on room air and saturating well. EKG reviewed showing sinus tachycardia, QTC 446. Allergies: Coded Allergies: PENICILLINS (Unverified Allergy, Unknown, 12/04/14) Medication History Scheduled Amlodipine Besylate (Norvasc), 10 MG ORAL DAILY Dicyclomine Hcl* (Dicyclomine Hcl*), 10 MG ORAL QID Famotidine* (Pepcid 20mg tablet*), 20 MG ORAL DAILY Insulin Aspart (Novolog Flexpen), 5 UNITS SUBQ NOVOTIAC Insulin Detemir (Levemir Flexpen), 20 UNITS SUBQ BEFORE BREAKFAST Lisinopril* (Lisinopril*), 40 MG ORAL DAILY, (Reported) Scheduled PRN Hydrocodone Bit/Acetaminophen 10-325* ([place] 10-325*), 1 TAB ORAL Q6H PRN for For Pain, (Reported) Hydrocodone Bit/Acetaminophen 5-325* ([place] 5-325*), 1 TAB ORAL Q6H PRN for For Pain Ondansetron (Zofran), 4 MG ORAL Q6H PRN for Nausea & Vomiting Miscellaneous Medications [insulin], (Reported) Discontinued Medications Clindamycin Hcl* (Clindamycin Hcl*), 450 MG ORAL TID Discontinued Reason: MD discontinued med Ibuprofen (Motrin), 600 MG ORAL THREE TIMES A DAY Discontinued Reason: MD discontinued med Lactulose (Lactulose*), 15 ML ORAL TID Discontinued Reason: MD discontinued med Metformin Hcl* (Metformin Hcl*), 500 MG ORAL TWICE A DAY Discontinued Reason: MD discontinued med Prednisone* (Prednisone*), 40 MG ORAL DAILY Discontinued Reason: MD discontinued med Patient History Healthcare decision maker Resuscitation status Advanced Directive on File Review of Systems All Other Systems: negative except mentioned in HPI Physical Exam Last 24 Hour Vital Signs Date Time Temp Pulse Resp B/P (MAP) Pulse Ox O2 Delivery O2 Flow Rate FiO2 06/21/20 04:00 98.1 113 18 143/98 (113) 97 06/21/20 04:00 110 06/21/20 00:00 121 06/21/20 00:00 97.6 108 18 168/111 (130) 95 06/20/20 23:20 188/100 06/20/20 21:00 Room Air 06/20/20 20:00 100.0 107 22 150/89 (109) 96 06/20/20 20:00 117 06/20/20 19:30 108 150/89 06/20/20 16:00 136 06/20/20 16:00 101.3 112 22 161/111 (128) 98 06/20/20 15:38 161/111 06/20/20 12:00 117 06/20/20 12:00 100.4 120 20 156/106 (123) 97 Intake and Output 06/20/20 06/21/20 19:00 07:00 Intake Total 110 ml 150 ml Balance 110 ml 150 ml Intake Oral 110 ml 150 ml # Voids 1 3 # Bowel Movements 1 Laboratory Tests Test 06/20/20 12:20 06/20/20 19:30 06/21/20 06:06 06/21/20 07:51 POC Whole Blood Glucose Pending 219 MG/DL (74-106) H White Blood Count 5.6 K/UL (4.8-10.8) Red Blood Count 5.33 M/UL (4.20-5.40) Hemoglobin 14.4 G/DL (12.0-16.0) Hematocrit 43.7 % (37.0-47.0) Mean Corpuscular Volume 82 FL (80-99) Mean Corpuscular Hemoglobin 27.0 PG (27.0-31.0) Mean Corpuscular Hemoglobin Concent 33.0 G/DL (32.0-36.0) Red Cell Distribution Width 14.1 % (11.6-14.8) Platelet Count 205 K/UL (150-450) Mean Platelet Volume 10.4 FL (6.5-10.1) H Neutrophils (%) (Auto) 83.4 % (45.0-75.0) H Lymphocytes (%) (Auto) 7.9 % (20.0-45.0) L Monocytes (%) (Auto) 7.3 % (1.0-10.0) Eosinophils (%) (Auto) 0.0 % (0.0-3.0) Basophils (%) (Auto) 1.4 % (0.0-2.0) Sodium Level 131 MMOL/L (136-145) L Potassium Level 3.4 MMOL/L (3.5-5.1) L Chloride Level 97 MMOL/L (98-107) L Carbon Dioxide Level 18 MMOL/L (21-32) L Anion Gap 16 mmol/L (5-15) H Blood Urea Nitrogen 11 mg/dL (7-18) Creatinine 0.8 MG/DL (0.55-1.30) Estimat Glomerular Filtration Rate > 60 mL/min (>60) Glucose Level 228 MG/DL (74-106) H Calcium Level 8.4 MG/DL (8.5-10.1) L Phosphorus Level 3.0 MG/DL (2.5-4.9) 3.3 MG/DL (2.5-4.9) Magnesium Level 1.6 MG/DL (1.8-2.4) L 1.5 MG/DL (1.8-2.4) L Total Bilirubin 0.3 MG/DL (0.2-1.0) Aspartate Amino Transf (AST/SGOT) 52 U/L (15-37) H Alanine Aminotransferase (ALT/SGPT) 56 U/L (12-78) Alkaline Phosphatase 64 U/L (46-116) Total Protein 7.7 G/DL (6.4-8.2) Albumin 2.8 G/DL (3.4-5.0) L Globulin 4.9 g/dL Albumin/Globulin Ratio 0.6 (1.0-2.7) L Test 06/21/20 09:30 White Blood Count Pending Red Blood Count Pending Hemoglobin Pending Hematocrit Pending Mean Corpuscular Volume Pending Mean Corpuscular Hemoglobin Pending Mean Corpuscular Hemoglobin Concent Pending Red Cell Distribution Width Pending Platelet Count Pending Mean Platelet Volume Pending Neutrophils (%) (Auto) Pending Lymphocytes (%) (Auto) Pending Monocytes (%) (Auto) Pending Eosinophils (%) (Auto) Pending Basophils (%) (Auto) Pending Thyroid Stimulating Hormone (TSH) Pending Free Thyroxine Pending Vancomycin Level Trough Pending Thyroglobulin Antibody Pending Height (Feet): 5 Height (Inches): 3.00 Weight (Pounds): 200 Medications Current Medications Medications (Trade) Dose Ordered Sig/Mando Route PRN Reason Start Time Stop Time Status Last Admin Dose Admin Acetaminophen (Tylenol) 650 mg Q4H PRN ORAL Temp >100.5 06/19/20 21:00 07/19/20 20:59 06/20/20 08:49 Acetaminophen (Tylenol) 650 mg Q4H PRN ORAL Mild Pain (Pain Scale 1-3) 06/19/20 21:00 07/19/20 20:59 Albuterol Sulfate (Proventil MDI) 2 puff Q4H PRN INH Shortness of Breath 06/19/20 22:00 09/17/20 21:59 Amlodipine Besylate (Norvasc) 10 mg DAILY ORAL 06/21/20 09:00 07/21/20 08:59 Baclofen (Lioresal) 5 mg TID PRN ORAL muscle spasm 06/19/20 21:00 07/19/20 20:59 Bisacodyl (Dulcolax) 10 mg DAILYPRN PRN RECTAL Constipation 06/19/20 21:00 09/17/20 20:59 Cefepime HCl 2 gm/ Dextrose 55 ml @ 110 mls/hr Q8H IVPB 06/19/20 23:30 06/26/20 23:29 06/21/20 08:26 Dextrose (Dextrose 50%) 25 ml Q30M PRN IV Hypoglycemia 06/19/20 21:00 09/17/20 20:59 Dextrose (Dextrose 50%) 50 ml Q30M PRN IV Hypoglycemia 06/19/20 21:00 09/17/20 20:59 Diphenhydramine HCl (Benadryl) 50 mg Q6H PRN IVP Itching 06/20/20 03:00 07/20/20 02:59 06/20/20 15:38 Docusate Sodium (Colace) 100 mg EVERY 12 HOURS ORAL 06/19/20 21:00 07/19/20 20:59 06/20/20 08:45 Doxycycline Monohydrate (Doxycycline Monohydrate) 100 mg EVERY 12 HOURS ORAL 06/20/20 21:00 06/27/20 20:59 Enoxaparin Sodium (Lovenox) 40 mg Q24H SUBQ 06/20/20 09:00 09/18/20 08:59 06/21/20 08:34 Famotidine (Pepcid I.v.) 20 mg Q12HR IVP 06/21/20 09:00 07/21/20 08:59 06/21/20 08:26 Hydralazine HCl (Apresoline) 10 mg Q4H PRN IV SBP >160 06/19/20 21:00 09/17/20 20:59 06/20/20 23:20 Insulin Aspart (NovoLOG) BEFORE MEALS AND HS SUBQ 06/19/20 21:00 09/17/20 20:59 06/21/20 06:26 Insulin Aspart (NovoLOG) 4 units NOVOTIAC SUBQ 06/21/20 11:50 09/19/20 11:49 Insulin Detemir (Levemir) 12 units DAILY SUBQ 06/21/20 09:00 09/18/20 08:59 Lisinopril (PriniviL) 20 mg DAILY ORAL 06/21/20 09:00 07/21/20 08:59 Lorazepam (Ativan 2mg/ml 1ml) 0.5 mg Q4H PRN IV For Anxiety 06/19/20 21:00 06/26/20 20:59 Metronidazole 100 ml @ 100 mls/hr Q8H IVPB 06/20/20 02:00 06/27/20 01:59 06/21/20 02:26 Morphine Sulfate (Morphine Sulfate) 1 mg Q4H PRN IVP Moderate Pain (Pain Scale 4-6) 06/21/20 08:15 06/28/20 08:14 Morphine Sulfate (Morphine Sulfate) 2 mg Q4H PRN IVP Severe Pain (Pain Scale 7-10) 06/21/20 08:15 06/28/20 08:14 Ondansetron HCl (Zofran) 4 mg Q6H PRN IVP Nausea & Vomiting 06/19/20 21:00 07/19/20 20:59 06/20/20 23:07 Oxycodone HCl (Roxicodone) 5 mg Q4H PRN ORAL Breakthrough Pain 06/19/20 21:00 06/26/20 20:59 Oxycodone HCl (Roxicodone) 5 mg Q6H PRN ORAL severe pain 06/19/20 21:00 06/26/20 20:59 06/20/20 02:04 Polyethylene Glycol (Miralax) 17 gm DAILYPRN PRN ORAL Constipation 06/19/20 21:00 07/19/20 20:59 Prochlorperazine (Compazine) 10 mg Q6H PRN IVP Nausea & Vomiting-2ND 06/19/20 21:00 07/19/20 20:59 Sodium Chloride 1,000 ml @ 75 mls/hr [id number] IVLG 06/19/20 22:00 07/19/20 21:59 06/21/20 01:35 Tramadol HCl (Ultram) 50 mg Q6H PRN ORAL moderate pain 06/19/20 21:00 06/26/20 20:59 06/20/20 08:47 Vancomycin HCl (Vanco pharmacy to dose) 1 ea DAILY PRN MISC Per rx protocol 06/19/20 22:15 07/19/20 22:14 Vancomycin HCl 1 gm/Dextrose 275 ml @ 183.708 mls/hr Q12H IVPB 06/20/20 10:00 06/25/20 09:59 06/20/20 21:16 Assessment/Plan Diagnosis [facility]: #hyponatremia - hypovolumic vs SIADH in the setting of pneumonia #diabetes mellitus type 2 # hypertension # asthma # history of thyroid cancer status post thyroidectomy # history of cervical cancer - TSH - urine chem - antibiotics per - lisinopril 20mg daily - BG control Lori Sweet M.D. Jun 21, 2020 09:59
[2020-06-21] MEDS: Vancomycin 1gm in D5W 275ml IVPB SCH (10:33)
--- NOTE | 2020-06-21 11:28 | NUR ---
NURSE NOTES: Dr. Mccollum informed of patient's refusal of oral medications. New order to change PO doxycycline to IV route, and keep offering oral meds.
[2020-06-21 12:00] VITALS: BP 135/90
--- NOTE | 2020-06-21 12:21 | NUR ---
CASE MANAGEMENT:REVIEW FROM HOME TO ER SI: COVID POSITIVE 102.3 128 20 162/106 98% ON RA NA-133 IS: 1L NS BOLUS IV CEFEPIME IV AZITHROMYCIN IV VANCOMYCIN IV MORPHINE : TO TELEMETRY DCP: FROM HOME
[2020-06-21] MEDS: Doxycycline Hyclate 100 MG in D5W 110 ML IV SCH ×2 (12:36→20:41)
[2020-06-21] MEDS: Hydromorphone 0.5mg/0.5ml inj IVP PRN ×3 (14:26→23:50)
--- NOTE | 2020-06-21 14:45 | Consultation ---
DATE OF CONSULTATION: 06/21/2020 ENDOCRINOLOGY CONSULTATION CONSULTING PHYSICIAN: Elkin Pradhan M.D. REFERRING PHYSICIAN: Matt Hernández D.O. REASON FOR CONSULTATION: 1. Diabetes management. 2. Thyroid disease. HISTORY OF PRESENT ILLNESS: The patient is a 49-year-old female with past medical history of type 2 diabetes, hypertension, asthma, thyroid cancer, status post thyroidectomy, as well as cervical cancer, who presented with a 3-day history of generalized weakness, muscle pain, and chills, diagnosed with COVID. The patient was put on isolation and then started on treatment. PAST MEDICAL HISTORY: 1. Diabetes. 2. Thyroid cancer. 3. Cervical cancer. PAST SURGICAL HISTORY: 1. Thyroidectomy. SOCIAL HISTORY: No smoking, alcohol, or drug use. ALLERGIES TO MEDICATIONS: None. FAMILY HISTORY: Noncontributory. MEDICATIONS: Reviewed and reconciled. REVIEW OF SYSTEMS: As per HPI. PHYSICAL EXAMINATION: VITAL SIGNS: Blood pressure 130/80, pulse of 80, temperature 98.6, respiratory rate 18. Her physical exam was deferred due to COVID isolation. LABORATORY DATA: Sodium 131, potassium 3.4, chloride 97, bicarb 18, BUN 11, creatinine 0.8. DIAGNOSES: 1. Diabetes, out of control. 2. History of thyroid cancer, status post thyroidectomy. 3. COVID-19 infection. DISCUSSION: 1. Increase Levemir to 12 units daily. 2. Add NovoLog 4 units before each meal. 3. I will defer on thyroid ultrasound in order to not to expose our staff to COVID virus for a nonurgent imaging study. 4. I will order TSH, free T4, thyroglobulin, and thyroglobulin antibody to test for thyroid cancer status. I will follow up with the results for further advice. Thank you, Dr. Matt Hernández, for the courtesy of this consultation. Elkin Pradhan M.D. DR: MELISSA/JANICE JOB#: [id number] CC: KAVITHA
--- NOTE | 2020-06-21 15:32 | NUR ---
NURSE NOTES: Urine sample collected and sent down to lab.
[2020-06-21 15:52] VITALS: BP 128/93
[2020-06-21] MEDS: Vancomycin 1gm/D5W 275ml IVPB SCH ×2 (17:31)
--- NOTE | 2020-06-21 18:15 | Infectious Diseases Prog Note ---
Assessment/Plan Assessment/Plan Full consult dictated: A) 1) covid-19 infection, pna, ? sepsis, fevers, headache 2) doubt meningitis 3) allergies - pcn P) 1) vancomycin, cefepime, doxycycline 2) no indication for covid-19 treatment 3) will f/u on cultures 4) thank you Subjective Constitutional: Denies: fever HEENT: Denies: congestion Respiratory: Denies: shortness of breath Cardiovascular: Denies: chest pain Gastrointestinal/Abdominal: Denies: nausea, vomiting Allergies: Coded Allergies: PENICILLINS (Unverified Allergy, Unknown, 12/04/14) Objective Last 24 Hour Vital Signs Date Time Temp Pulse Resp B/P (MAP) Pulse Ox O2 Delivery O2 Flow Rate FiO2 06/21/20 15:52 97.5 107 18 128/93 (105) 95 06/21/20 12:00 97.8 108 18 135/90 (105) 94 06/21/20 12:00 108 06/21/20 09:00 Room Air 06/21/20 08:00 119 06/21/20 08:00 98.8 106 19 140/99 (113) 95 06/21/20 04:00 98.1 113 18 143/98 (113) 97 06/21/20 04:00 110 06/21/20 00:00 121 06/21/20 00:00 97.6 108 18 168/111 (130) 95 06/20/20 23:20 188/100 06/20/20 21:00 Room Air 06/20/20 20:00 100.0 107 22 150/89 (109) 96 06/20/20 20:00 117 06/20/20 19:30 108 150/89 Height (Feet): 5 Height (Inches): 3.00 Weight (Pounds): 200 HEENT: normocephalic, atraumatic, anicteric Respiratory/Chest: crackles/rales, rhonchi - bilaterally Cardiovascular: normal rate, regular rhythm Microbiology Date/Time Source Procedure Growth Status 06/19/20 13:05 Rectum Received 06/19/20 13:05 Blood Blood Culture - Preliminary NO GROWTH AFTER 24 HOURS Resulted 06/19/20 12:45 Blood Blood Culture - Preliminary NO GROWTH AFTER 24 HOURS Resulted 06/19/20 12:10 Nasopharynx SARS-CoV-2 RdRp Gene Assay - Final Complete Laboratory Tests Test 06/20/20 19:30 06/21/20 06:06 06/21/20 07:51 06/21/20 09:30 White Blood Count 5.6 K/UL (4.8-10.8) 3.9 K/UL (4.8-10.8) L Red Blood Count 5.33 M/UL (4.20-5.40) 5.62 M/UL (4.20-5.40) H Hemoglobin 14.4 G/DL (12.0-16.0) 15.1 G/DL (12.0-16.0) Hematocrit 43.7 % (37.0-47.0) 45.5 % (37.0-47.0) Mean Corpuscular Volume 82 FL (80-99) 81 FL (80-99) Mean Corpuscular Hemoglobin 27.0 PG (27.0-31.0) 26.8 PG (27.0-31.0) L Mean Corpuscular Hemoglobin Concent 33.0 G/DL (32.0-36.0) 33.1 G/DL (32.0-36.0) Red Cell Distribution Width 14.1 % (11.6-14.8) 14.4 % (11.6-14.8) Platelet Count 205 K/UL (150-450) 242 K/UL (150-450) Mean Platelet Volume 10.4 FL (6.5-10.1) H 10.3 FL (6.5-10.1) H Neutrophils (%) (Auto) 83.4 % (45.0-75.0) H 71.2 % (45.0-75.0) Lymphocytes (%) (Auto) 7.9 % (20.0-45.0) L 16.3 % (20.0-45.0) L Monocytes (%) (Auto) 7.3 % (1.0-10.0) 11.5 % (1.0-10.0) H Eosinophils (%) (Auto) 0.0 % (0.0-3.0) 0.0 % (0.0-3.0) Basophils (%) (Auto) 1.4 % (0.0-2.0) 1.1 % (0.0-2.0) Sodium Level 131 MMOL/L (136-145) L Potassium Level 3.4 MMOL/L (3.5-5.1) L Chloride Level 97 MMOL/L (98-107) L Carbon Dioxide Level 18 MMOL/L (21-32) L Anion Gap 16 mmol/L (5-15) H Blood Urea Nitrogen 11 mg/dL (7-18) Creatinine 0.8 MG/DL (0.55-1.30) Estimat Glomerular Filtration Rate > 60 mL/min (>60) Glucose Level 228 MG/DL (74-106) H Calcium Level 8.4 MG/DL (8.5-10.1) L Phosphorus Level 3.0 MG/DL (2.5-4.9) 3.3 MG/DL (2.5-4.9) Magnesium Level 1.6 MG/DL (1.8-2.4) L 1.5 MG/DL (1.8-2.4) L Total Bilirubin 0.3 MG/DL (0.2-1.0) Aspartate Amino Transf (AST/SGOT) 52 U/L (15-37) H Alanine Aminotransferase (ALT/SGPT) 56 U/L (12-78) Alkaline Phosphatase 64 U/L (46-116) Total Protein 7.7 G/DL (6.4-8.2) Albumin 2.8 G/DL (3.4-5.0) L Globulin 4.9 g/dL Albumin/Globulin Ratio 0.6 (1.0-2.7) L POC Whole Blood Glucose 219 MG/DL (74-106) H Thyroid Stimulating Hormone (TSH) 0.960 uiU/mL (0.358-3.740) Free Thyroxine 1.00 NG/DL (0.76-1.46) Vancomycin Level Trough 8.2 ug/mL (5.0-12.0) Thyroglobulin Antibody Pending Test 06/21/20 15:22 06/21/20 16:15 Urine Osmolality 778 mOsm/kg (429-449) H Urine Random Sodium 56 mmol/L (20-110) Urine Creatinine 86.1 MG/DL (30.0-125.0) POC Whole Blood Glucose Pending Current Medications Medications (Trade) Dose Ordered Sig/Mando Route PRN Reason Start Time Stop Time Status Last Admin Dose Admin Acetaminophen (Tylenol) 650 mg Q4H PRN ORAL Temp >100.5 06/19/20 21:00 07/19/20 20:59 06/20/20 08:49 Acetaminophen (Tylenol) 650 mg Q4H PRN ORAL Mild Pain (Pain Scale 1-3) 06/19/20 21:00 07/19/20 20:59 Albuterol Sulfate (Proventil MDI) 2 puff Q4H PRN INH Shortness of Breath 06/19/20 22:00 09/17/20 21:59 Amlodipine Besylate (Norvasc) 10 mg DAILY ORAL 06/21/20 09:00 07/21/20 08:59 Baclofen (Lioresal) 5 mg TID PRN ORAL muscle spasm 06/19/20 21:00 07/19/20 20:59 Bisacodyl (Dulcolax) 10 mg DAILYPRN PRN RECTAL Constipation 06/19/20 21:00 09/17/20 20:59 Cefepime HCl 2 gm/ Dextrose 55 ml @ 110 mls/hr Q8H IVPB 06/19/20 23:30 06/26/20 23:29 06/21/20 15:24 Dextrose (Dextrose 50%) 25 ml Q30M PRN IV Hypoglycemia 06/19/20 21:00 09/17/20 20:59 Dextrose (Dextrose 50%) 50 ml Q30M PRN IV Hypoglycemia 06/19/20 21:00 09/17/20 20:59 Diphenhydramine HCl (Benadryl) 50 mg Q6H PRN IVP Itching 06/20/20 03:00 07/20/20 02:59 06/20/20 15:38 Docusate Sodium (Colace) 100 mg EVERY 12 HOURS ORAL 06/19/20 21:00 07/19/20 20:59 06/20/20 08:45 Doxycycline Hyclate 100 mg/ Dextrose 110 ml @ 110 mls/hr Q12HR IV 06/21/20 12:00 06/28/20 11:59 06/21/20 12:36 Enoxaparin Sodium (Lovenox) 40 mg Q24H SUBQ 06/20/20 09:00 09/18/20 08:59 06/21/20 08:34 Famotidine (Pepcid I.v.) 20 mg Q12HR IVP 06/21/20 09:00 07/21/20 08:59 06/21/20 08:26 Hydralazine HCl (Apresoline) 10 mg Q4H PRN IV SBP >160 06/19/20 21:00 09/17/20 20:59 06/20/20 23:20 Hydromorphone HCl (Dilaudid) 0.2 mg Q4H PRN IVP Moderate Pain (Pain Scale 4-6) 06/21/20 13:45 06/28/20 13:44 06/21/20 14:26 Hydromorphone HCl (Dilaudid) 0.4 mg Q4H PRN IVP Severe Pain (Pain Scale 7-10) 06/21/20 13:45 06/28/20 13:44 Insulin Aspart (NovoLOG) BEFORE MEALS AND HS SUBQ 06/19/20 21:00 09/17/20 20:59 06/21/20 16:23 Insulin Aspart (NovoLOG) 4 units NOVOTIAC SUBQ 06/21/20 11:50 09/19/20 11:49 06/21/20 16:48 Insulin Detemir (Levemir) 12 units DAILY SUBQ 06/21/20 09:00 09/18/20 08:59 06/21/20 10:42 Lisinopril (PriniviL) 20 mg DAILY ORAL 06/21/20 09:00 07/21/20 08:59 Lorazepam (Ativan 2mg/ml 1ml) 0.5 mg Q4H PRN IV For Anxiety 06/19/20 21:00 06/26/20 20:59 Metronidazole 100 ml @ 100 mls/hr Q8H IVPB 06/20/20 02:00 06/27/20 01:59 06/21/20 17:31 Ondansetron HCl (Zofran) 4 mg Q6H PRN IVP Nausea & Vomiting 06/19/20 21:00 07/19/20 20:59 06/21/20 10:33 Oxycodone HCl (Roxicodone) 5 mg Q4H PRN ORAL Breakthrough Pain 06/19/20 21:00 06/26/20 20:59 Oxycodone HCl (Roxicodone) 5 mg Q6H PRN ORAL severe pain 06/19/20 21:00 06/26/20 20:59 06/20/20 02:04 Polyethylene Glycol (Miralax) 17 gm DAILYPRN PRN ORAL Constipation 06/19/20 21:00 07/19/20 20:59 Prochlorperazine (Compazine) 10 mg Q6H PRN IVP Nausea & Vomiting-2ND 06/19/20 21:00 07/19/20 20:59 Sodium Chloride 1,000 ml @ 75 mls/hr [id number] IVLG 06/19/20 22:00 07/19/20 21:59 06/21/20 14:19 Tramadol HCl (Ultram) 50 mg Q6H PRN ORAL moderate pain 06/19/20 21:00 06/26/20 20:59 06/20/20 08:47 Vancomycin HCl (Vanco pharmacy to dose) 1 ea DAILY PRN MISC Per rx protocol 06/19/20 22:15 07/19/20 22:14 Vancomycin HCl 1 gm/Dextrose 275 ml @ 183.708 mls/hr Q8HR@0200,1000,1800 IVPB 06/21/20 18:00 06/26/20 17:59 06/21/20 17:31 Mike Urias MD Jun 21, 2020 18:15
--- NOTE | 2020-06-21 19:19 | NUR ---
NURSE NOTES: Pt is in bed asleep but A/O x4 and verbally responsive. Pt is on room air with no SOB or acute distress. Pt complains of body aches, offered medications but medications declined. Encouraged to relax and take deep breath. Pillows also offered to reposition. Pt has IV on LH and RW which are patent and intact running NS @ 75cc/hr and also IV ATB. Bed in lowest position and locked. Call light within reach. Educted to use call light when needed. Will continue plan of care.
--- NOTE | 2020-06-21 19:27 | NUR ---
NURSE HAND-OFF REPORT: Important Events on Shift:[dilaudid IV PRN, IV antibiotics, IV zofran] Patient Status: [FULL CODE] Diet: [CCHO low] Pending Orders: [] Pending Results/Labs:[] Pending MD notification:[] Latest Vital Signs: Temperature 97.5 , Pulse 111 , B/P 128 /93 , Respiratory Rate 18 , O2 SAT 95 , Room Air, O2 Flow Rate . Vital Sign Comment: [] EKG Rhythm: Sinus Tachycardia Rhythm change?: N MD Notified?: - MD Response: Latest Mathias Fall Score: 45 Fall Risk: High Risk Safety Measures: Call light Within Reach, Bed Alarm Zone 1, Side Rails Side Rails x2, Bed position Low and Locked. Fall Precautions: Yellow Socks Yellow Gown Patient Fall Education Report given to [Quiana RN].
--- NOTE | 2020-06-21 19:30 | Consultation ---
DATE OF CONSULTATION: 06/21/2020 INFECTIOUS DISEASE CONSULTATION CONSULTING PHYSICIAN: Mike Urias MD. ATTENDING PHYSICIAN: Gregorio Perez MD. REFERRING PHYSICIAN: Matt Hernández DO. REASON FOR CONSULTATION: COVID-19 infection, community-acquired pneumonia, sepsis, and fevers. CHIEF COMPLAINT: The patient's chief complaint coming in the hospital is dyspnea and COVID infection. HISTORY OF PRESENT ILLNESS: This is a 49-year-old female who comes into [facility] with dyspnea. The patient was diagnosed with COVID infection by nasopharyngeal molecular testing. The patient has pneumonia, could have community-acquired pneumonia. She has fevers and possible sepsis. Infectious Disease consultation is requested. The patient was placed on cefepime, doxycycline, and vancomycin. There was concern the patient could have meningitis because of headache, but this is less likely. LP was deferred at this time. The patient also will be seen by Neurology. REVIEW OF SYSTEMS: CONSTITUTIONAL: Main issue is the fevers and chills. HEAD AND NECK: She had a headache, but no neck stiffness. CARDIAC: No chest pain. PULMONARY: She has shortness of breath and cough. GASTROINTESTINAL: No nausea, vomiting, or diarrhea. GENITOURINARY: No dysuria or frequency. SKIN: No rash. NEUROLOGIC: No seizures. PAST MEDICAL HISTORY: The patient has a past medical history of hypertension and diabetes mellitus. The patient has a past medical history of goiter and thyroidectomy, history of cervical cancer, history of diabetes type 2, history of hypertension, and history of hyperlipidemia. ALLERGIES: Penicillins. She is tolerating cefepime. SOCIAL HISTORY: Negative for smoking, alcohol, or drug abuse. FAMILY HISTORY: Noncontributory. MEDICATIONS: Upon reviewing the MAR, she is on following medications, she is on vancomycin, hydromorphone, doxycycline, cefepime, famotidine, lisinopril, insulin, amlodipine, and diphenhydramine. She was on Flagyl, which I stopped. Sodium chloride, insulin, hydralazine, oxycodone, tramadol, lorazepam, Zofran, polyethylene glycol, and docusate. Outside medications noted and reconciliated. PHYSICAL EXAMINATION: VITAL SIGNS: Temperature is 97.5, pulse rate 107, respiratory rate 18, blood pressure 120/93. Saturating 95% on room air. GENERAL: Alert, responsive, in no distress. She is in COVID isolation. HEAD AND NECK: Oral exam, no thrush. Eye exam, no icterus. Normocephalic. HEART: Regular. No murmur or gallop. LUNGS: Few bilateral rhonchi, possible rales. ABDOMEN: Soft. Positive bowel sounds. Nontender SKIN: No rash. MUSCULOSKELETAL: No effusion. Legs are without cellulitis. PERIPHERAL VASCULAR: No cyanosis. GENITOURINARY: No Paul. LINE SITES: Without phlebitis. NEUROLOGIC: Intact. Nonfocal. LABORATORY DATA: White count 3.9, hemoglobin 15.1. Creatinine is 0.8. UA, 0 to 2 white cells. Chest x-ray had patchy infiltrates in the left lung. This was noted and reviewed. Blood cultures are negative to date. COVID molecular testing was positive. ASSESSMENT AND PLAN: 1. The patient with COVID-19 infection with pneumonia, rule out community-acquired pneumonia, with sepsis and fevers. Continue cefepime, doxycycline, and vancomycin, day #2. Continue antibiotics for community-acquired pneumonia and bacterial pneumonia, COVID-19 infection and pneumonia. The patient's saturation is stable. No indication for remdesivir or dexamethasone. Monitor fevers and sepsis. Check followup laboratories and chest x-ray. 2. COVID isolation. 3. Headache, doubt meningitis. 4. Hyperlipidemia. 5. Diabetes. 6. Hypertension. 7. History of cervical cancer. 8. History of thyroidectomy and goiter. 9. Diabetes and hypertension treatment per primary care team. 10. Continue treatment for hyperlipidemia 11. Allergies to penicillin, tolerates cefepime 12. Social history is negative. 13. Family history is noncontributory. 14. MAR is noted. 15. Case discussed with RN. Mike Urias M.D. DR: HERNESTO JOB#: [id number] CC:
--- NOTE | 2020-06-21 19:51 | General Progress Note ---
Subjective Allergies: Coded Allergies: PENICILLINS (Unverified Allergy, Unknown, 12/04/14) Subjective No acute events overnight per nursing. Telemetry reviewed. Patient still sinus tachycardia. Continues to feel myalgias but overall improving. Having nausea and emesis nonbloody/non billious x 3. Still No cough or shortness of breath. Headache is much improved. Still with generalized body aches. Review of systems: Constitutional: Denies: chills, diaphoresis, fever, malaise, weakness + myalgias, HEENT: +headache, but improved, no vision changes Cardiovascular: Denies: chest pain, edema, lightheadedness, palpitations Respiratory: Denies: cough, orthopnea, shortness of breath, SOB with excertion, SOB at rest, Gastrointestinal/Abdominal: Denies: abdominal pain, black stools, blood in stool, constipation, diarrhea, nausea, poor fluid intake vomiting, other Genitourinary: Denies: burning, discharge, frequency, Neurologic/Psychiatric: Denies: headache, numbness, paresthesia, new weakness, other Endocrine: Denies: excessive sweating, flushing, intolerance to cold, MSK: denies joint pains, swelling, stiffness Hematologic/Lymphatic: Denies: anemia, easy bleeding, easy bruising, Objective Last 24 Hour Vital Signs Date Time Temp Pulse Resp B/P (MAP) Pulse Ox O2 Delivery O2 Flow Rate FiO2 06/21/20 16:00 111 06/21/20 15:52 97.5 107 18 128/93 (105) 95 06/21/20 12:00 97.8 108 18 135/90 (105) 94 06/21/20 12:00 108 06/21/20 09:00 Room Air 06/21/20 08:00 119 06/21/20 08:00 98.8 106 19 140/99 (113) 95 06/21/20 04:00 98.1 113 18 143/98 (113) 97 06/21/20 04:00 110 06/21/20 00:00 121 06/21/20 00:00 97.6 108 18 168/111 (130) 95 06/20/20 23:20 188/100 06/20/20 21:00 Room Air 06/20/20 20:00 100.0 107 22 150/89 (109) 96 06/20/20 20:00 117 Intake and Output 06/20/20 06/21/20 19:00 07:00 Intake Total 110 ml 225 ml Balance 110 ml 225 ml Intake Oral 110 ml 150 ml IV Total 75 ml # Voids 1 3 # Bowel Movements 1 Laboratory Tests 06/21/20 06:06: POC Whole Blood Glucose 219H 06/21/20 07:51: Phosphorus Level 3.3, Magnesium Level 1.5L 06/21/20 09:30: White Blood Count 3.9L, Red Blood Count 5.62H, Hemoglobin 15.1, Hematocrit 45.5, Mean Corpuscular Volume 81, Mean Corpuscular Hemoglobin 26.8L, Mean Corpuscular Hemoglobin Concent 33.1, Red Cell Distribution Width 14.4, Platelet Count 242, Mean Platelet Volume 10.3H, Neutrophils (%) (Auto) 71.2, Lymphocytes (%) (Auto) 16.3L, Monocytes (%) (Auto) 11.5H, Eosinophils (%) (Auto) 0.0, Basophils (%) (Auto) 1.1, Pro-B-Type Natriuretic Peptide [Pending], Thyroid Stimulating Hormone (TSH) 0.960, Free Thyroxine 1.00, Vancomycin Level Trough 8.2, Thyroglobulin Antibody [Pending] 06/21/20 15:22: Urine Osmolality 778H, Urine Random Sodium 56, Urine Creatinine 86.1 06/21/20 16:15: POC Whole Blood Glucose [Pending] Height (Feet): 5 Height (Inches): 3.00 Weight (Pounds): 200 Objective General: WDWN /female in NAD, A&O x 4, resting in bed, tired appearing (stable) HEENT: Normocephalic cephalic atraumatic, pupils equal round reactive to light and accommodation, nares patent and no symmetrical, no tonsillar exudates, mucous membranes moist CV: Tachycardic, regular rhythm, no murmurs, rubs, or gallops Pulm: Lungs clear to auscultation bilaterally. No wheezes, rhonchi, or rales GI: Soft, nontender, nondistended, bowel sounds present Neuro: CN 2-12 intact bilaterally, no focal signs. Ext: No lower extremity edema bilaterally Skin: no rashes lesions or ulcers Msk: Joints symmetrical in upper extremity and lower extremity bilaterally, no joint swelling. Lymph: No lymphadenopathy in upper extremity and lower extremity Assessment/Plan Assessment/Plan: This is a 49 year old female p/w sepsis due to COVID pneumonia, headache, neck pain, #Covid pneumonia #LLL opacity, rule out superimposed HAP vs. CAP #Sepsis (fever, tachycardia) due to COVID #fatigue #myalgias #PCN allergy -> hives/itching. No anaphylaxis. Has gotten cephalosporins without any issues. > LDH 328, CRP 21.4, lactate 1.2, d-dimer 0.99 > onset of symptoms 06/17/20 -Admit to telemetry -Blood cultures -Vanc per pharm (06/19 - ) -Cefepime 2gm Q8hr (06/19 - ) -Flagyl (06/19 - ) -Doxycyline (06/20 - ) -Abx per ID - Gentle IV fluids - pulmonary hygeine - albuterol PRN -Appreciate ID consult: Dr. Steele -Consider Dex/Remdesivir if patient becomes hypoxic. D/w ID #hyponatremia, suspect hypovolemic, worsening even while on fluids - trend sodium. RN to draw labs - IV fluids as above - repeat lytes - Nephro consulted: Dr. Sweet #nausea/vomiting likely due to COVID illness > no abdominal pain > + flatus, and BM. NO diarrhea - Anti-emetics - If develops pain then low threshold for CT scan and GI eval - Start IV pepcid #Severe headache, suspect due to COVID. R/o intracranial process (CT head negative). R/o meningitis (tho less likely) > Doubt meningitis per Neuro and ID #nausea #possible cervical radiculopathy from last admit > Unable to perform LP in Ed. Ok to defer per Neuro -Appreciate neurology consult: Dr. Gracia -Appreciate ID consult: Dr. Steele - Treat with broad spectrum abx - Vanc per pharm (06/19 - ) - Cefepime 2gm Q8hr (06/19 - ) - abx per ID -Consider MRI C spine if able (previously unable to tolerate - change to dilaudid IV PRN 0.2mg/0.4mg PRN. Patient does not want morphine - instructed RN to only give if unable to tolerate PO #s/p Chest Pain #Sinus tachycardia suspected secondary to sepsis from Covid #right groin pain. No signs of hematoma on exam. Pulses palpable. Has pain all over body. RF - , female, dm2 > Dobutamine stress test positive >EKG reviewed on admission - s/p cardiac cath at OSH in [facility] Dr[facility] Mcgee - Cardiology consulted: Dr. Dos Santos - Continue Statin - troponin - EKG prn for chest pain - Keep K>4 and Mag >2 #Bilateral Lower extremity swelling - venous duplex to rule out DVT: neg #Right side goiter #s/p thyroidectomy - lost to follow up - repeat Thyroid US: reviewed - endocrinology consult: Dr. Pradhan - workup pending #h/o cervical cancer - lost to follow up - outpatient follow up with oncology - patient understands importance of follow up #DM2 - Insulin dependent DM2 - Takes 20U of Long acting insulin in AM - Will give 5 units for now and titrate up - ACHS BG - SSI - hypoglycemia protocol - diabetic diet #HTN - Increase back to amlodipine 10mg daily - Restart lisinopril 20mg daily - hydralazine PRN #Hx of Asthma - prn albuterol treatment #HLD - Continue atorvastatin FENPPX DVTPPX: lovenox Fluids: as above Diet: Diabetic Lines: PIV PT/OT: pending Code status: Full Dispo: Home vs. Rehab Reason for Continued Hospitalization: COVID, nausea/vomiting/dehydration MIPS ([employer]-based Incentive Payment System) Applicable CPT: 33014, 03801 CHECK ALL THAT ARE MET: [] Measure #5 (CHF): All ages. Prescribe TRINA/ARB upon discharge for patients with left ventricular systolic dysfunction. If not, the reason is clearly documented in the medical chart [] Measure #8 (CHF): All ages. Prescribe a beta reggie upon discharge for patients with left ventricular systolic dysfunction. If not, the reason is clearly documented in the medical chart. [x] Measure #47: Advance care plan or surrogate decision maker documented in the medical record. [x] Measure #130 The provider has documented, updated, or reviewed the patients current medication list and has documented it in the patients note. [] Measure #374 (All): Send report to referring provider. [] Measure #407(Sepsis due to MSSA bacteremia): Age 18+ Patient treated with a beta-lactam antibiotic (Nafcillin, Oxacillin or Cefazolin) as definitive therapy. MEDICAL COMPLEXITYHigh complexity medical decision making (need 2/3 categories)Problem - need 4 points [x]Acute/new problem with new plan for workup (4 points, 1 max) [] Acute/new problem without additional workup (3 points, 1 max) [] Unstable chronic problem actively being managed (2 point each, 2 max) [x] Stable chronic problem actively being managed (1 point each, 2 max) [x] Self-limited/transient process (constipation, muscle ache, etc) (1 point each, 2 max) Data - need 4 points [x] Reviewed labs/imaging studies (1 points, 2 max) [x] Independent review of imaging (EKG, xrays, etc) (2 points, 2 max) [x] Discussed case with consult/other MD/RN (2 points, 2 max) High Risk - qualify if have one of the following: [x] Severe exacerbation of acute problem, acute mental status change, IV narcotics, monitoring drug levels (vancomycin, INR, tacrolimus etc) I spent 36 minutes on this patient's case, and 20 mins was dedicated to counseling and/or care coordination. Discussed with ID, Neuro, Cardiology, nephrology, endocrinology. Time of note may not reflect time of encounter Matt Hernández D.O. Jun 21, 2020 19:51
--- NOTE | 2020-06-21 19:53 | Neurology Progress Note ---
Interim History Interim History Interim History no new deficits less PAGE Objective Physical Exam Last Vital Signs Date Time Temp Pulse Resp B/P (MAP) Pulse Ox O2 Delivery O2 Flow Rate FiO2 06/21/20 16:00 111 06/21/20 15:52 97.5 18 128/93 (105) 95 06/21/20 09:00 Room Air Laboratory Tests Test 06/21/20 06:06 06/21/20 07:51 06/21/20 09:30 06/21/20 15:22 POC Whole Blood Glucose 219 MG/DL (74-106) H Phosphorus Level 3.3 MG/DL (2.5-4.9) Magnesium Level 1.5 MG/DL (1.8-2.4) L White Blood Count 3.9 K/UL (4.8-10.8) L Red Blood Count 5.62 M/UL (4.20-5.40) H Hemoglobin 15.1 G/DL (12.0-16.0) Hematocrit 45.5 % (37.0-47.0) Mean Corpuscular Volume 81 FL (80-99) Mean Corpuscular Hemoglobin 26.8 PG (27.0-31.0) L Mean Corpuscular Hemoglobin Concent 33.1 G/DL (32.0-36.0) Red Cell Distribution Width 14.4 % (11.6-14.8) Platelet Count 242 K/UL (150-450) Mean Platelet Volume 10.3 FL (6.5-10.1) H Neutrophils (%) (Auto) 71.2 % (45.0-75.0) Lymphocytes (%) (Auto) 16.3 % (20.0-45.0) L Monocytes (%) (Auto) 11.5 % (1.0-10.0) H Eosinophils (%) (Auto) 0.0 % (0.0-3.0) Basophils (%) (Auto) 1.1 % (0.0-2.0) Pro-B-Type Natriuretic Peptide Pending Thyroid Stimulating Hormone (TSH) 0.960 uiU/mL (0.358-3.740) Free Thyroxine 1.00 NG/DL (0.76-1.46) Vancomycin Level Trough 8.2 ug/mL (5.0-12.0) Thyroglobulin Antibody Pending Urine Osmolality 778 mOsm/kg (429-449) H Urine Random Sodium 56 mmol/L (20-110) Urine Creatinine 86.1 MG/DL (30.0-125.0) Test 06/21/20 16:15 POC Whole Blood Glucose Pending Head: normocophalic Neck: no rigidity EENT: benign Neurologic Exam Mental Status: awake, oriented x4 Speech: normal speech Cranial Nerves III, IV, : PERRLA Cranial Nerve VII: no facial asymmetry Gait: stable Objective no nuchal rigidity moves all 4 Impression/Recommendations Problems: (1) Pain in limb (2) Upper respiratory infection (3) Dehydration (4) Throat pain (5) Anemia (6) Chest wall pain (7) Diverticulosis (8) Hyperglycemia (9) Proteinuria (10) Cervical cancer (11) Acute pharyngitis (12) Hip pain (13) Abdominal pain (14) Chest pain (15) Pharyngitis (16) HTN (hypertension) (17) Muscle spasm of back (18) Chronic pain (19) DM (diabetes mellitus) (20) UTI (lower urinary tract infection) (21) ACS (acute coronary syndrome) (22) Postoperative pain (23) Radiculopathy of cervical spine (24) Opiate withdrawal (25) Diabetes mellitus out of control (26) Degenerative disc disease, cervical (27) Hip osteoarthritis (28) Voiding difficulty (29) Voiding difficulty (30) H/O fracture of right hip (31) Spondylosis of cervical spine (32) cervical myalgia (33) tension headacke (34) Dyspnea (35) COVID-19 Diagnostic Impression COVID pneumonia and sepsis Headache likely 2/2 to above Unlikely meningitis at this point would defer LP cont atb and medical support will follow Mandeep Gracia MD Jun 21, 2020 19:53
[2020-06-21 20:00] VITALS: BP 136/88
[2020-06-22] VITALS: BP 130/94
[2020-06-22] MEDS: Cefepime HCl 2 GM in D5W 55 ML IVPB SCH ×4 (00:16→23:42)
[2020-06-22] MEDS: Vancomycin 1gm/D5W 275ml IVPB SCH ×6 (01:29→17:11)
[2020-06-22 04:00] VITALS: BP 134/89
[2020-06-22] MEDS: Hydromorphone 0.5mg/0.5ml inj IVP PRN ×3 (05:38→21:19)
[2020-06-22] MEDS: NovoLOG Insulin Flexpen SUBQ SCH ×7 (05:56→21:00)
--- NOTE | 2020-06-22 06:35 | General Progress Note ---
Subjective Allergies: Coded Allergies: PENICILLINS (Unverified Allergy, Unknown, 12/04/14) Subjective events noted TSH is normal glucose values are elevated Item Value Date Time Bedside Blood Glucose 241 mg/dl H 06/22/20 0556 Bedside Blood Glucose 138 mg/dl H 06/21/20 2100 Bedside Blood Glucose 267 mg/dl H 06/21/20 1648 Bedside Blood Glucose 236 mg/dl H 06/21/20 1107 Bedside Blood Glucose 236 mg/dl H 06/21/20 1042 Bedside Blood Glucose 219 mg/dl H 06/21/20 0630 Objective Last 24 Hour Vital Signs Date Time Temp Pulse Resp B/P (MAP) Pulse Ox O2 Delivery O2 Flow Rate FiO2 06/22/20 04:00 98.3 114 20 134/89 (104) 92 06/22/20 04:00 110 06/22/20 00:00 98.4 118 20 130/94 (106) 94 06/22/20 00:00 118 06/21/20 21:00 Room Air 06/21/20 20:00 106 06/21/20 20:00 97.9 109 18 136/88 (104) 93 06/21/20 16:00 111 06/21/20 15:52 97.5 107 18 128/93 (105) 95 06/21/20 12:00 97.8 108 18 135/90 (105) 94 06/21/20 12:00 108 06/21/20 09:00 Room Air 06/21/20 08:00 119 06/21/20 08:00 98.8 106 19 140/99 (113) 95 Intake and Output 06/21/20 06/22/20 18:59 06:59 Intake Total 1325 ml 480 ml Output Total 30 ml Balance 1295 ml 480 ml Intake Oral 500 ml 480 ml IV Total 825 ml Output Emesis 30 ml # Voids 3 2 Laboratory Tests 06/21/20 07:51: Phosphorus Level 3.3, Magnesium Level 1.5L 06/21/20 09:30: White Blood Count 3.9L, Red Blood Count 5.62H, Hemoglobin 15.1, Hematocrit 45.5, Mean Corpuscular Volume 81, Mean Corpuscular Hemoglobin 26.8L, Mean Corpuscular Hemoglobin Concent 33.1, Red Cell Distribution Width 14.4, Platelet Count 242, Mean Platelet Volume 10.3H, Neutrophils (%) (Auto) 71.2, Lymphocytes (%) (Auto) 16.3L, Monocytes (%) (Auto) 11.5H, Eosinophils (%) (Auto) 0.0, Basophils (%) (Auto) 1.1, Pro-B-Type Natriuretic Peptide [Pending], Thyroid Stimulating Hormone (TSH) 0.960, Free Thyroxine 1.00, Vancomycin Level Trough 8.2, Thyroglobulin Antibody [Pending] 06/21/20 15:22: Urine Osmolality 778H, Urine Random Sodium 56, Urine Creatinine 86.1 06/21/20 16:15: POC Whole Blood Glucose [Pending] 06/22/20 05:52: POC Whole Blood Glucose 241H Height (Feet): 5 Height (Inches): 3.00 Weight (Pounds): 200 Objective Current Medications Medications (Trade) Dose Ordered Sig/Mando Route PRN Reason Start Time Stop Time Status Last Admin Dose Admin Acetaminophen (Tylenol) 650 mg Q4H PRN ORAL Temp >100.5 06/19/20 21:00 07/19/20 20:59 06/20/20 08:49 Acetaminophen (Tylenol) 650 mg Q4H PRN ORAL Mild Pain (Pain Scale 1-3) 06/19/20 21:00 07/19/20 20:59 Albuterol Sulfate (Proventil MDI) 2 puff Q4H PRN INH Shortness of Breath 06/19/20 22:00 09/17/20 21:59 Amlodipine Besylate (Norvasc) 10 mg DAILY ORAL 06/21/20 09:00 07/21/20 08:59 Baclofen (Lioresal) 5 mg TID PRN ORAL muscle spasm 06/19/20 21:00 07/19/20 20:59 Bisacodyl (Dulcolax) 10 mg DAILYPRN PRN RECTAL Constipation 06/19/20 21:00 09/17/20 20:59 Cefepime HCl 2 gm/ Dextrose 55 ml @ 110 mls/hr Q8H IVPB 06/19/20 23:30 06/26/20 23:29 06/22/20 00:16 Dextrose (Dextrose 50%) 25 ml Q30M PRN IV Hypoglycemia 06/19/20 21:00 09/17/20 20:59 Dextrose (Dextrose 50%) 50 ml Q30M PRN IV Hypoglycemia 06/19/20 21:00 09/17/20 20:59 Diphenhydramine HCl (Benadryl) 50 mg Q6H PRN IVP Itching 06/20/20 03:00 07/20/20 02:59 06/20/20 15:38 Docusate Sodium (Colace) 100 mg EVERY 12 HOURS ORAL 06/19/20 21:00 07/19/20 20:59 06/20/20 08:45 Doxycycline Hyclate 100 mg/ Dextrose 110 ml @ 110 mls/hr Q12HR IV 06/21/20 12:00 06/28/20 11:59 06/21/20 20:41 Enoxaparin Sodium (Lovenox) 40 mg Q24H SUBQ 06/20/20 09:00 09/18/20 08:59 06/21/20 08:34 Famotidine (Pepcid I.v.) 20 mg Q12HR IVP 06/21/20 09:00 07/21/20 08:59 06/21/20 20:44 Hydralazine HCl (Apresoline) 10 mg Q4H PRN IV SBP >160 06/19/20 21:00 09/17/20 20:59 06/20/20 23:20 Hydromorphone HCl (Dilaudid) 0.2 mg Q4H PRN IVP Moderate Pain (Pain Scale 4-6) 06/21/20 13:45 06/28/20 13:44 06/21/20 18:28 Hydromorphone HCl (Dilaudid) 0.4 mg Q4H PRN IVP Severe Pain (Pain Scale 7-10) 06/21/20 13:45 06/28/20 13:44 06/22/20 05:38 Insulin Aspart (NovoLOG) BEFORE MEALS AND HS SUBQ 06/19/20 21:00 09/17/20 20:59 06/22/20 05:56 Insulin Aspart (NovoLOG) 4 units NOVOTIAC SUBQ 06/21/20 11:50 09/19/20 11:49 06/22/20 05:56 Insulin Detemir (Levemir) 12 units DAILY SUBQ 06/21/20 09:00 09/18/20 08:59 06/21/20 10:42 Lisinopril (PriniviL) 20 mg DAILY ORAL 06/21/20 09:00 07/21/20 08:59 Lorazepam (Ativan 2mg/ml 1ml) 0.5 mg Q4H PRN IV For Anxiety 06/19/20 21:00 06/26/20 20:59 Ondansetron HCl (Zofran) 4 mg Q6H PRN IVP Nausea & Vomiting 06/19/20 21:00 07/19/20 20:59 06/21/20 10:33 Oxycodone HCl (Roxicodone) 5 mg Q4H PRN ORAL Breakthrough Pain 06/19/20 21:00 06/26/20 20:59 Oxycodone HCl (Roxicodone) 5 mg Q6H PRN ORAL severe pain 06/19/20 21:00 06/26/20 20:59 06/20/20 02:04 Polyethylene Glycol (Miralax) 17 gm DAILYPRN PRN ORAL Constipation 06/19/20 21:00 07/19/20 20:59 Prochlorperazine (Compazine) 10 mg Q6H PRN IVP Nausea & Vomiting-2ND 06/19/20 21:00 07/19/20 20:59 Sodium Chloride 1,000 ml @ 75 mls/hr [id number] IVLG 06/19/20 22:00 07/19/20 21:59 06/22/20 04:27 Tramadol HCl (Ultram) 50 mg Q6H PRN ORAL moderate pain 06/19/20 21:00 06/26/20 20:59 06/20/20 08:47 Vancomycin HCl (Vanco pharmacy to dose) 1 ea DAILY PRN MISC Per rx protocol 06/19/20 22:15 07/19/20 22:14 Vancomycin HCl 1 gm/Dextrose 275 ml @ 183.708 mls/hr Q8HR@0200,1000,1800 IVPB 06/21/20 18:00 06/26/20 17:59 06/22/20 01:29 Assessment/Plan Problem List: (1) Hx of thyroid cancer ICD Codes: Z85.850 - Personal history of malignant neoplasm of thyroid SNOMED: 114975380 (2) Diabetes mellitus out of control ICD Codes: E11.65 - Diabetes mellitus out of control SNOMED: 767626660 (3) COVID-19 ICD Codes: U07.1 - COVID-19 SNOMED: 931121650 Assessment/Plan: increase Levemir to 18 units daily increase Novolog to 6 units ac tid continue Novolog sliding scale ac hs TSH is at target follow Tg - Tg Ab no need for thyroid US as IP Elkin Pradhan MD Jun 22, 2020 06:35
--- NOTE | 2020-06-22 07:30 | NUR ---
NURSE HAND-OFF REPORT: Important Events on Shift: IV pain medications given and N/V medications also. Patient Status: Stable Diet: Regular Pending Orders: Pending Results/Labs: Pending MD notification: Latest Vital Signs: Temperature 98.3 , Pulse 110 , B/P 134 /89 , Respiratory Rate 20 , O2 SAT 92 , Room Air, O2 Flow Rate . Vital Sign Comment: EKG Rhythm: Sinus Tachycardia Rhythm change?: N MD Notified?: - MD Response: Latest Mathias Fall Score: 45 Fall Risk: High Risk Safety Measures: Call light Within Reach, Bed Alarm Zone 1, Side Rails Side Rails x2, Bed position Low and Locked. Fall Precautions: Yellow Socks Yellow Gown Patient Fall Education Report given to Fela.
--- NOTE | 2020-06-22 07:31 | NUR ---
NURSE NOTES: Received patient in bed awake. No SOB or acute distress. IV line intact and patent. HOB elevated. Bed locked in low position. Call light within reach. Will continue plan of care.
[2020-06-22 08:00] VITALS: BP 131/88
--- NOTE | 2020-06-22 08:42 | Nephrology Progress Note ---
Assessment/Plan Plan #hyponatremia - hypovolumic vs SIADH in the setting of pneumonia #COVID pneumonia #diabetes mellitus type 2 # hypertension # asthma # history of thyroid cancer status post thyroidectomy # history of cervical cancer - NS bolus 250 x1 - TSH - urine chem - antibiotics per - lisinopril 20mg daily - BG control Subjective ROS Limited/Unobtainable: No Subjective LAbs pending today Objective Objective Last 24 Hour Vital Signs Date Time Temp Pulse Resp B/P (MAP) Pulse Ox O2 Delivery O2 Flow Rate FiO2 06/22/20 04:00 98.3 114 20 134/89 (104) 92 06/22/20 04:00 110 06/22/20 00:00 98.4 118 20 130/94 (106) 94 06/22/20 00:00 118 06/21/20 21:00 Room Air 06/21/20 20:00 106 06/21/20 20:00 97.9 109 18 136/88 (104) 93 06/21/20 16:00 111 06/21/20 15:52 97.5 107 18 128/93 (105) 95 06/21/20 12:00 97.8 108 18 135/90 (105) 94 06/21/20 12:00 108 06/21/20 09:00 Room Air Intake and Output 06/21/20 06/22/20 19:00 07:00 Intake Total 1250 ml 480 ml Output Total 30 ml Balance 1220 ml 480 ml Intake Oral 500 ml 480 ml IV Total 750 ml Output Emesis 30 ml # Voids 3 2 Laboratory Tests 06/21/20 09:30: White Blood Count 3.9L, Red Blood Count 5.62H, Hemoglobin 15.1, Hematocrit 45.5, Mean Corpuscular Volume 81, Mean Corpuscular Hemoglobin 26.8L, Mean Corpuscular Hemoglobin Concent 33.1, Red Cell Distribution Width 14.4, Platelet Count 242, Mean Platelet Volume 10.3H, Neutrophils (%) (Auto) 71.2, Lymphocytes (%) (Auto) 16.3L, Monocytes (%) (Auto) 11.5H, Eosinophils (%) (Auto) 0.0, Basophils (%) (Auto) 1.1, Pro-B-Type Natriuretic Peptide [Pending], Thyroid Stimulating Hormone (TSH) 0.960, Free Thyroxine 1.00, Vancomycin Level Trough 8.2, Thyroglobulin Antibody [Pending] 06/21/20 15:22: Urine Osmolality 778H, Urine Random Sodium 56, Urine Creatinine 86.1 06/21/20 16:15: POC Whole Blood Glucose [Pending] 06/22/20 05:52: POC Whole Blood Glucose 241H Height (Feet): 5 Height (Inches): 3.00 Weight (Pounds): 200 General Appearance: no apparent distress EENT: PERRL/EOMI, normal ENT inspection Neck: non-tender, normal alignment Cardiovascular: normal peripheral pulses, normal rate, regular rhythm Respiratory/Chest: chest wall non-tender, lungs clear Abdomen: normal bowel sounds, non tender Neurologic: alert, oriented x 3 Lori Sweet M.D. Jun 22, 2020 08:42
[2020-06-22] MEDS ORDERED: NS 250 ML IVPB ONE (08:45)
[2020-06-22] MEDS: Levemir Flexpen SUBQ SCH (09:00)
[2020-06-22 09:03] LABS: HEMATOCRIT 43.8 % (37.0-47.0); HEMOGLOBIN 15.1 G/DL (12.0-16.0); MEAN CORPUSCULAR VOLUME 79 FL (80-99); PLATELET COUNT 226 K/UL (150-450); RED BLOOD COUNT 5.52 M/UL (4.20-5.40); RED CELL DISTRIBUTION WIDTH 14.6 % (11.6-14.8); WHITE BLOOD COUNT 3.4 K/UL (4.8-10.8)
[2020-06-22] MEDS: oxyCODONE 5mg IR tab ORAL PRN (09:04)
[2020-06-22] MEDS: Docusate 100mg cap ORAL SCH ×2 (09:05→21:00)
[2020-06-22] MEDS: Lisinopril 20mg tab ORAL SCH (09:05)
[2020-06-22] MEDS: Enoxaparin 40mg Inj SUBQ SCH (09:08)
[2020-06-22 09:14] LABS: ANION GAP 6 mmol/L (5-15); CALCIUM 8.1 MG/DL (8.5-10.1); CARBON DIOXIDE 27 MMOL/L (21-32); CHLORIDE 99 MMOL/L (98-107); POTASSIUM 3.3 MMOL/L (3.5-5.1); SODIUM 132 MMOL/L (136-145)
[2020-06-22 09:35] LABS: BLOOD UREA NITROGEN 10 mg/dL (7-18)
[2020-06-22 09:43] LABS: PHOSPHORUS 1.4 MG/DL (2.5-4.9)
[2020-06-22] MEDS: Doxycycline Hyclate 100 MG in D5W 110 ML IV SCH ×2 (10:49→21:18)
[2020-06-22 12:00] VITALS: BP 130/91
--- NOTE | 2020-06-22 13:00 | NUR ---
NURSE NOTES: IV site hurts as stated by patient. Removed and reinserted to right wrist g22.
--- NOTE | 2020-06-22 13:11 | NUR ---
CASE MANAGEMENT:REVIEW 06/22/20 SI: COVID POSITIVE. TACHYCARDIA 98.2 83 20 147/74 97% ON RA K-3.3 IS: IV VANCOMYCIN Q8HRS IV DOXYCYCLINE Q12 IVF@75/HR LISINOPRIL PO QD IV PEPCID Q12 NORVASC PO QD LOVENOX SQ Q24 : TELEMETRY STATUS DCP: FROM HOME
--- NOTE | 2020-06-22 13:28 | Diagnostic Imaging Report ---
Indication: Cough Technique: One view of the chest Comparison: 06/19/2020 Findings: Linear band in the right mid lung may reflect a small area of persistent atelectasis versus scarring. There is questionable retrocardiac consolidation again demonstrated. There is evidence of prior CABG Impression: Right mid lung scarring or atelectasis Questionable retrocardiac consolidation
[2020-06-22 16:00] VITALS: BP 117/82
[2020-06-22] MEDS ORDERED: NS 275ml ONE (16:38)
--- NOTE | 2020-06-22 17:12 | General Progress Note ---
Subjective Date patient seen: Jun 22, 2020 ROS Limited/Unobtainable: No Allergies: Coded Allergies: PENICILLINS (Unverified Allergy, Unknown, 12/04/14) Subjective No acute events overnight per nursing. Telemetry reviewed. Patient remains in sinus tachycardia. Overall, feeling better than yesterday. N/V controlled. No SOB. Still some myalgias. Eating today, tolerating diet so far. Review of systems: Constitutional: Denies: chills, diaphoresis, fever, malaise, weakness + myalgias, HEENT: Denies headache, no vision changes Cardiovascular: Denies: chest pain, edema, lightheadedness, palpitations Respiratory: Denies: cough, orthopnea, shortness of breath, SOB with excertion, SOB at rest, Gastrointestinal/Abdominal: Denies: abdominal pain, black stools, blood in stool, constipation, diarrhea, nausea, poor fluid intake vomiting, other Genitourinary: Denies: burning, discharge, frequency, Neurologic/Psychiatric: Denies: headache, numbness, paresthesia, new weakness, other Endocrine: Denies: excessive sweating, flushing, intolerance to cold, MSK: denies joint pains, swelling, stiffness Hematologic/Lymphatic: Denies: anemia, easy bleeding, easy bruising, Objective Last 24 Hour Vital Signs Date Time Temp Pulse Resp B/P (MAP) Pulse Ox O2 Delivery O2 Flow Rate FiO2 06/22/20 12:00 113 06/22/20 12:00 98.7 103 21 130/91 (104) 98 06/22/20 09:05 131/88 06/22/20 09:04 106 131/88 06/22/20 09:00 Room Air 06/22/20 08:00 98.2 106 19 131/88 (102) 96 06/22/20 08:00 103 06/22/20 04:00 98.3 114 20 134/89 (104) 92 06/22/20 04:00 110 06/22/20 00:00 98.4 118 20 130/94 (106) 94 06/22/20 00:00 118 06/21/20 21:00 Room Air 06/21/20 20:00 106 06/21/20 20:00 97.9 109 18 136/88 (104) 93 Intake and Output 06/21/20 06/22/20 19:00 07:00 Intake Total 1250 ml 480 ml Output Total 30 ml Balance 1220 ml 480 ml Intake Oral 500 ml 480 ml IV Total 750 ml Output Emesis 30 ml # Voids 3 2 Laboratory Tests 06/22/20 05:52: POC Whole Blood Glucose 241H 06/22/20 08:46: White Blood Count 3.4L, Red Blood Count 5.52H, Hemoglobin 15.1, Hematocrit 43.8, Mean Corpuscular Volume 79L, Mean Corpuscular Hemoglobin 27.4, Mean Corpuscular Hemoglobin Concent 34.5, Red Cell Distribution Width 14.6, Platelet Count 226, Mean Platelet Volume 9.3, Neutrophils (%) (Auto) , Lymphocytes (%) (Auto) , Monocytes (%) (Auto) , Eosinophils (%) (Auto) , Basophils (%) (Auto) , Differential Total Cells Counted 100, Neutrophils % (Manual) 50, Lymphocytes % (Manual) 40, Monocytes % (Manual) 10, Eosinophils % (Manual) 0, Basophils % (Manual) 0, Band Neutrophils 0, Platelet Estimate Adequate, Platelet Morphology Normal, Anisocytosis 1+, Sodium Level 132L, Potassium Level 3.3L, Chloride Level 99, Carbon Dioxide Level 27, Anion Gap 6, Blood Urea Nitrogen 10, Creatinine 1.0, Estimat Glomerular Filtration Rate > 60, Glucose Level 189H, Calcium Level 8.1L, Phosphorus Level 1.4L, Magnesium Level 2.0, Thyroid Stimulating Hormone (TSH) 2.297, Cortisol AM Sample [Pending], Vancomycin Level Trough 16.0H 06/22/20 16:13: POC Whole Blood Glucose [Pending] 06/22/20 16:15: Urine Osmolality 630H, Urine Random Sodium 35 Height (Feet): 5 Height (Inches): 3.00 Weight (Pounds): 200 Objective General: WDWN /female in NAD, A&O x 4, resting in bed, comfortable appearing HEENT: Normocephalic cephalic atraumatic, pupils equal round reactive to light and accommodation, nares patent and no symmetrical, no tonsillar exudates, mucous membranes moist CV: Tachycardic, regular rhythm, no murmurs, rubs, or gallops Pulm: Lungs clear to auscultation bilaterally. No wheezes, rhonchi, or rales GI: Soft, nontender, nondistended, bowel sounds present Neuro: CN 2-12 intact bilaterally, no focal signs. Ext: No lower extremity edema bilaterally Skin: no rashes lesions or ulcers Msk: Joints symmetrical in upper extremity and lower extremity bilaterally, no joint swelling. Lymph: No lymphadenopathy in upper extremity and lower extremity Assessment/Plan Assessment/Plan: This is a 49 year old female p/w sepsis due to COVID pneumonia, headache, neck pain, #Covid pneumonia - resolving, off of oxygen now #LLL opacity, rule out superimposed HAP vs. CAP #Sepsis (fever, tachycardia) due to COVID #fatigue #myalgias #PCN allergy -> hives/itching. No anaphylaxis. Has gotten cephalosporins without any issues. > LDH 328, CRP 21.4, lactate 1.2, d-dimer 0.99 > onset of symptoms 06/17/20 -Admit to telemetry -Blood cultures -Vanc per pharm (06/19 - ) -Cefepime 2gm Q8hr (06/19 - ) -Flagyl (06/19 - ) -Doxycyline (06/20 - ) -Abx per ID - Gentle IV fluids - pulmonary hygiene - albuterol PRN -Appreciate ID consult: Dr. Steele -Consider Dex/Remdesivir if patient becomes hypoxic. D/w ID #hyponatremia, suspect hypovolemic, worsening even while on fluids - trend sodium. RN to draw labs - IV fluids as above - repeat lytes - Nephro consulted: Dr. Sweet #nausea/vomiting likely due to COVID illness > no abdominal pain > + flatus, and BM. NO diarrhea - Anti-emetics - If develops pain then low threshold for CT scan and GI eval - Start IV pepcid #Severe headache, suspect due to COVID. R/o intracranial process (CT head negative). R/o meningitis (tho less likely) > Doubt meningitis per Neuro and ID #nausea #possible cervical radiculopathy from last admit > Unable to perform LP in Ed. Ok to defer per Neuro -Appreciate neurology consult: Dr. Gracia -Appreciate ID consult: Dr. Steele - Treat with broad spectrum abx - Vanc per pharm (06/19 - ) - Cefepime 2gm Q8hr (06/19 - ) - abx per ID -Consider MRI C spine if able (previously unable to tolerate - change to dilaudid IV PRN 0.2mg/0.4mg PRN. Patient does not want morphine - instructed RN to only give if unable to tolerate PO #s/p Chest Pain #Sinus tachycardia suspected secondary to sepsis from Covid #right groin pain. No signs of hematoma on exam. Pulses palpable. Has pain all over body. RF - , female, dm2 > Dobutamine stress test positive >EKG reviewed on admission - s/p cardiac cath at OSH in [facility]. Dr. Mcgee - Cardiology consulted: Dr. Dos Santos - Continue Statin - troponin - EKG prn for chest pain - Keep K>4 and Mag >2 #Bilateral Lower extremity swelling - venous duplex to rule out DVT: neg #Right side goiter #s/p thyroidectomy - lost to follow up - repeat Thyroid US: reviewed - endocrinology consult: Dr. Pradhan - Can repeat thyroid US as outpatient #h/o cervical cancer - lost to follow up - outpatient follow up with oncology - patient understands importance of follow up #DM2 - Insulin dependent DM2 - Takes 20U of Long acting insulin in AM - insulin per endocrinology - ACHS BG - SSI - hypoglycemia protocol - diabetic diet #HTN - Increase back to amlodipine 10mg daily - Restart lisinopril 20mg daily - hydralazine PRN #Hx of Asthma - prn albuterol treatment #HLD - Continue atorvastatin FENPPX DVTPPX: lovenox Fluids: as above Diet: Diabetic Lines: PIV PT/OT: pending Code status: Full Dispo: Likely Home Reason for Continued Hospitalization: COVID, nausea/vomiting/dehydration MIPS ([employer]-based Incentive Payment System) Applicable CPT: 06506, 89890 CHECK ALL THAT ARE MET: [] Measure #5 (CHF): All ages. Prescribe TRINA/ARB upon discharge for patients with left ventricular systolic dysfunction. If not, the reason is clearly documented in the medical chart [] Measure #8 (CHF): All ages. Prescribe a beta reggie upon discharge for patients with left ventricular systolic dysfunction. If not, the reason is diane juana documented in the medical chart. [x] Measure #47: Advance care plan or surrogate decision maker documented in the medical record. [x] Measure #130 The provider has documented, updated, or reviewed the patients current medication list and has documented it in the patients note. [] Measure #374 (All): Send report to referring provider. [] Measure #407(Sepsis due to MSSA bacteremia): Age 18+ Patient treated with a beta-lactam antibiotic (Nafcillin, Oxacillin or Cefazolin) as definitive therapy. MEDICAL COMPLEXITYHigh complexity medical decision making (need 2/3 categories)Problem - need 4 points [x]Acute/new problem with new plan for workup (4 points, 1 max) [] Acute/new problem without additional workup (3 points, 1 max) [] Unstable chronic problem actively being managed (2 point each, 2 max) [x] Stable chronic problem actively being managed (1 point each, 2 max) [x] Self-limited/transient process (constipation, muscle ache, etc) (1 point each, 2 max) Data - need 4 points [x] Reviewed labs/imaging studies (1 points, 2 max) [x] Independent review of imaging (EKG, xrays, etc) (2 points, 2 max) [x] Discussed case with consult/other MD/RN (2 points, 2 max) High Risk - qualify if have one of the following: [x] Severe exacerbation of acute problem, acute mental status change, IV narcotics, monitoring drug levels (vancomycin, INR, tacrolimus etc) I spent 35 minutes on this patient's case, and 19 mins was dedicated to counseling and/or care coordination. Discussed with ID, Neuro, Cardiology, nephrology, endocrinology. Time of note may not reflect time of encounter Roger Monterroso M.D. Jun 22, 2020 17:12
--- NOTE | 2020-06-22 19:30 | NUR ---
NURSE NOTES: Received pt and report from MELISSA Chahal. Observed pt resting in bed with both eyes open and watching television. Pt is A/Ox4. trash man is in placed; pt is ST (109 bpm). Pt is asymptomatic. IV site intact, asymptomatic, and patent; running NS @ 75cc/hr. Bed is in the lowest position and locked. Call light and bedside table is within reach. No signs/symptoms of acute distress noted. Will continue plan of care.
--- NOTE | 2020-06-22 19:49 | NUR ---
NURSE HAND-OFF REPORT: Important Events on Shift: Patient Status: alert Diet: ccho low Pending Orders: Pending Results/Labs: Pending MD notification: Latest Vital Signs: Temperature 98.7 , Pulse 117 , B/P 117 /82 , Respiratory Rate 18 , O2 SAT 98 , Room Air, O2 Flow Rate . Vital Sign Comment: EKG Rhythm: Sinus Tachycardia Rhythm change?: N MD Notified?: - MD Response: Latest Mathias Fall Score: 45 Fall Risk: High Risk Safety Measures: Call light Within Reach, Bed Alarm Zone 1, Side Rails Side Rails x2, Bed position Low and Locked. Fall Precautions: Yellow Socks Yellow Gown Patient Fall Education Report given to norman TORRES.
[2020-06-22 20:00] VITALS: BP 108/75
--- NOTE | 2020-06-22 22:12 | Neurology Progress Note ---
Interim History Interim History ROS Limited/Unobtainable: No Interim History no new deficits Objective Physical Exam Last Vital Signs Date Time Temp Pulse Resp B/P (MAP) Pulse Ox O2 Delivery O2 Flow Rate FiO2 06/22/20 16:36 98.7 06/22/20 16:00 114 18 117/82 (94) 98 06/22/20 09:00 Room Air Laboratory Tests Test 06/22/20 05:52 06/22/20 08:46 06/22/20 16:13 06/22/20 16:15 POC Whole Blood Glucose 241 MG/DL (74-106) H Pending White Blood Count 3.4 K/UL (4.8-10.8) L Red Blood Count 5.52 M/UL (4.20-5.40) H Hemoglobin 15.1 G/DL (12.0-16.0) Hematocrit 43.8 % (37.0-47.0) Mean Corpuscular Volume 79 FL (80-99) L Mean Corpuscular Hemoglobin 27.4 PG (27.0-31.0) Mean Corpuscular Hemoglobin Concent 34.5 G/DL (32.0-36.0) Red Cell Distribution Width 14.6 % (11.6-14.8) Platelet Count 226 K/UL (150-450) Mean Platelet Volume 9.3 FL (6.5-10.1) Neutrophils (%) (Auto) % (45.0-75.0) Lymphocytes (%) (Auto) % (20.0-45.0) Monocytes (%) (Auto) % (1.0-10.0) Eosinophils (%) (Auto) % (0.0-3.0) Basophils (%) (Auto) % (0.0-2.0) Differential Total Cells Counted 100 Neutrophils % (Manual) 50 % (45-75) Lymphocytes % (Manual) 40 % (20-45) Monocytes % (Manual) 10 % (1-10) Eosinophils % (Manual) 0 % (0-3) Basophils % (Manual) 0 % (0-2) Band Neutrophils 0 % (0-8) Platelet Estimate Adequate Platelet Morphology Normal Anisocytosis 1+ Sodium Level 132 MMOL/L (136-145) L Potassium Level 3.3 MMOL/L (3.5-5.1) L Chloride Level 99 MMOL/L (98-107) Carbon Dioxide Level 27 MMOL/L (21-32) Anion Gap 6 mmol/L (5-15) Blood Urea Nitrogen 10 mg/dL (7-18) Creatinine 1.0 MG/DL (0.55-1.30) Estimat Glomerular Filtration Rate > 60 mL/min (>60) Glucose Level 189 MG/DL (74-106) H Calcium Level 8.1 MG/DL (8.5-10.1) L Phosphorus Level 1.4 MG/DL (2.5-4.9) L Magnesium Level 2.0 MG/DL (1.8-2.4) Thyroid Stimulating Hormone (TSH) 2.297 uiU/mL (0.358-3.740) Cortisol AM Sample Pending Vancomycin Level Trough 16.0 ug/mL (5.0-12.0) H Urine Osmolality 630 mOsm/kg (429-449) H Urine Random Sodium 35 mmol/L (20-110) Head: normocophalic Neck: no rigidity EENT: benign Neurologic Exam Mental Status: awake, oriented x4 Speech: normal speech Cranial Nerves III, IV, : PERRLA Cranial Nerve VII: no facial asymmetry Gait: stable Objective no nuchal rigidity moves all 4 Impression/Recommendations Problems: (1) Dyspnea (2) Pain in limb (3) Upper respiratory infection (4) Dehydration (5) Throat pain (6) Anemia (7) Chest wall pain (8) Diverticulosis (9) Hyperglycemia (10) Proteinuria (11) Cervical cancer (12) Acute pharyngitis (13) Hip pain (14) Abdominal pain (15) Chest pain (16) Pharyngitis (17) HTN (hypertension) (18) Muscle spasm of back (19) Chronic pain (20) DM (diabetes mellitus) (21) UTI (lower urinary tract infection) (22) ACS (acute coronary syndrome) (23) Postoperative pain (24) Radiculopathy of cervical spine (25) Opiate withdrawal (26) Diabetes mellitus out of control (27) Degenerative disc disease, cervical (28) Hip osteoarthritis (29) Voiding difficulty (30) Voiding difficulty (31) H/O fracture of right hip (32) Spondylosis of cervical spine (33) COVID-19 (34) cervical myalgia (35) tension headacke Diagnostic Impression COVID pneumonia and sepsis Headache likely 2/2 to above Unlikely meningitis at this point would defer LP cont atb and medical support will follow Mandeep Gracia MD Jun 22, 2020 22:12
[2020-06-23] VITALS: BP 110/77
[2020-06-23] MEDS: Vancomycin 1gm/D5W 275ml IVPB SCH ×4 (01:56→11:42)
[2020-06-23 04:00] VITALS: BP 136/85
[2020-06-23] MEDS: NovoLOG Insulin Flexpen SUBQ SCH ×7 (06:13→21:00)
--- NOTE | 2020-06-23 06:26 | General Progress Note ---
Subjective Allergies: Coded Allergies: PENICILLINS (Unverified Allergy, Unknown, 12/04/14) Subjective events noted TSH is normal glucose values are elevated - missed Levemir yesterday Item Value Date Time Bedside Blood Glucose 226 mg/dl H 06/23/20 0613 Bedside Blood Glucose 139 mg/dl H 06/22/20 2100 Bedside Blood Glucose 274 mg/dl H 06/22/20 1707 Bedside Blood Glucose 235 mg/dl H 06/22/20 1350 Bedside Blood Glucose 241 mg/dl H 06/22/20 0556 Objective Last 24 Hour Vital Signs Date Time Temp Pulse Resp B/P (MAP) Pulse Ox O2 Delivery O2 Flow Rate FiO2 06/23/20 04:00 99.1 106 20 136/85 (102) 100 06/23/20 04:00 102 06/23/20 00:00 102 06/23/20 00:00 100.0 103 20 110/77 (88) 98 06/22/20 22:03 99.9 06/22/20 22:00 99.9 06/22/20 21:00 Room Air 06/22/20 20:00 111 06/22/20 20:00 101.5 109 22 108/75 (86) 98 06/22/20 16:36 98.7 06/22/20 16:00 96.7 114 18 117/82 (94) 98 06/22/20 16:00 117 06/22/20 12:00 113 06/22/20 12:00 98.7 103 21 130/91 (104) 98 06/22/20 09:05 131/88 06/22/20 09:04 106 131/88 06/22/20 09:00 Room Air 06/22/20 08:00 98.2 106 19 131/88 (102) 96 06/22/20 08:00 103 Intake and Output 06/22/20 06/23/20 19:00 07:00 Intake Total 300 ml Balance 300 ml Intake Oral 300 ml # Voids 2 2 # Bowel Movements 1 1 Laboratory Tests 06/22/20 08:46: White Blood Count 3.4L, Red Blood Count 5.52H, Hemoglobin 15.1, Hematocrit 43.8, Mean Corpuscular Volume 79L, Mean Corpuscular Hemoglobin 27.4, Mean Corpuscular Hemoglobin Concent 34.5, Red Cell Distribution Width 14.6, Platelet Count 226, Mean Platelet Volume 9.3, Neutrophils (%) (Auto) , Lymphocytes (%) (Auto) , Monocytes (%) (Auto) , Eosinophils (%) (Auto) , Basophils (%) (Auto) , Different ial Total Cells Counted 100, Neutrophils % (Manual) 50, Lymphocytes % (Manual) 40, Monocytes % (Manual) 10, Eosinophils % (Manual) 0, Basophils % (Manual) 0, Band Neutrophils 0, Platelet Estimate Adequate, Platelet Morphology Normal, Anisocytosis 1+, Sodium Level 132L, Potassium Level 3.3L, Chloride Level 99, Carbon Dioxide Level 27, Anion Gap 6, Blood Urea Nitrogen 10, Creatinine 1.0, Estimat Glomerular Filtration Rate > 60, Glucose Level 189H, Calcium Level 8.1L, Phosphorus Level 1.4L, Magnesium Level 2.0, Thyroid Stimulating Hormone (TSH) 2.297, Cortisol AM Sample [Pending], Vancomycin Level Trough 16.0H 06/22/20 16:13: POC Whole Blood Glucose [Pending] 06/22/20 16:15: Urine Osmolality 630H, Urine Random Sodium 35 Height (Feet): 5 Height (Inches): 3.00 Weight (Pounds): 200 Objective Current Medications Medications (Trade) Dose Ordered Sig/Mando Route PRN Reason Start Time Stop Time Status Last Admin Dose Admin Acetaminophen (Tylenol) 650 mg Q4H PRN ORAL Temp >100.5 06/19/20 21:00 07/19/20 20:59 06/20/20 08:49 Acetaminophen (Tylenol) 650 mg Q4H PRN ORAL Mild Pain (Pain Scale 1-3) 06/19/20 21:00 07/19/20 20:59 06/22/20 21:33 Albuterol Sulfate (Proventil MDI) 2 puff Q4H PRN INH Shortness of Breath 06/19/20 22:00 09/17/20 21:59 Amlodipine Besylate (Norvasc) 10 mg DAILY ORAL 06/21/20 09:00 07/21/20 08:59 06/22/20 09:04 Baclofen (Lioresal) 5 mg TID PRN ORAL muscle spasm 06/19/20 21:00 07/19/20 20:59 Bisacodyl (Dulcolax) 10 mg DAILYPRN PRN RECTAL Constipation 06/19/20 21:00 09/17/20 20:59 Cefepime HCl 2 gm/ Dextrose 55 ml @ 110 mls/hr Q8H IVPB 06/19/20 23:30 06/26/20 23:29 06/22/20 23:42 Dextrose (Dextrose 50%) 25 ml Q30M PRN IV Hypoglycemia 06/19/20 21:00 09/17/20 20:59 Dextrose (Dextrose 50%) 50 ml Q30M PRN IV Hypoglycemia 06/19/20 21:00 09/17/20 20:59 Diphenhydramine HCl (Benadryl) 50 mg Q6H PRN IVP Itching 06/20/20 03:00 07/20/20 02:59 06/20/20 15:38 Docusate Sodium (Colace) 100 mg EVERY 12 HOURS ORAL 06/19/20 21:00 07/19/20 20:59 06/22/20 09:05 Doxycycline Hyclate 100 mg/ Dextrose 110 ml @ 110 mls/hr Q12HR IV 06/21/20 12:00 06/28/20 11:59 06/22/20 21:18 Enoxaparin Sodium (Lovenox) 40 mg Q24H SUBQ 06/20/20 09:00 09/18/20 08:59 06/22/20 09:08 Famotidine (Pepcid I.v.) 20 mg Q12HR IVP 06/21/20 09:00 07/21/20 08:59 06/22/20 21:18 Hydralazine HCl (Apresoline) 10 mg Q4H PRN IV SBP >160 06/19/20 21:00 09/17/20 20:59 06/20/20 23:20 Hydromorphone HCl (Dilaudid) 0.2 mg Q4H PRN IVP Moderate Pain (Pain Scale 4-6) 06/21/20 13:45 06/28/20 13:44 06/21/20 18:28 Hydromorphone HCl (Dilaudid) 0.4 mg Q4H PRN IVP Severe Pain (Pain Scale 7-10) 06/21/20 13:45 06/28/20 13:44 06/22/20 21:19 Insulin Aspart (NovoLOG) BEFORE MEALS AND HS SUBQ 06/19/20 21:00 09/17/20 20:59 06/23/20 06:13 Insulin Aspart (NovoLOG) 6 units NOVOTIAC SUBQ 06/22/20 11:50 09/19/20 11:49 06/22/20 17:07 Insulin Detemir (Levemir) 18 units DAILY SUBQ 06/22/20 09:00 09/18/20 08:59 Lisinopril (PriniviL) 20 mg DAILY ORAL 06/21/20 09:00 07/21/20 08:59 06/22/20 09:05 Lorazepam (Ativan 2mg/ml 1ml) 0.5 mg Q4H PRN IV For Anxiety 06/19/20 21:00 06/26/20 20:59 Ondansetron HCl (Zofran) 4 mg Q6H PRN IVP Nausea & Vomiting 06/19/20 21:00 07/19/20 20:59 06/21/20 10:33 Oxycodone HCl (Roxicodone) 5 mg Q4H PRN ORAL Breakthrough Pain 06/19/20 21:00 06/26/20 20:59 Oxycodone HCl (Roxicodone) 5 mg Q6H PRN ORAL severe pain 06/19/20 21:00 06/26/20 20:59 06/22/20 09:04 Polyethylene Glycol (Miralax) 17 gm DAILYPRN PRN ORAL Constipation 06/19/20 21:00 07/19/20 20:59 Prochlorperazine (Compazine) 10 mg Q6H PRN IVP Nausea & Vomiting-2ND 06/19/20 21:00 07/19/20 20:59 Sodium Chloride 1,000 ml @ 75 mls/hr [id number] IVLG 06/19/20 22:00 07/19/20 21:59 06/23/20 06:11 Tramadol HCl (Ultram) 50 mg Q6H PRN ORAL moderate pain 06/19/20 21:00 06/26/20 20:59 06/20/20 08:47 Vancomycin HCl (Vanco pharmacy to dose) 1 ea DAILY PRN MISC Per rx protocol 06/19/20 22:15 07/19/20 22:14 Vancomycin HCl 1 gm/Dextrose 275 ml @ 183.708 mls/hr Q8HR@0200,1000,1800 IVPB 06/21/20 18:00 06/26/20 17:59 06/23/20 01:56 Assessment/Plan Problem List: (1) Hx of thyroid cancer ICD Codes: Z85.850 - Personal history of malignant neoplasm of thyroid SNOMED: 549763791 (2) Diabetes mellitus out of control ICD Codes: E11.65 - Diabetes mellitus out of control SNOMED: 339455290 (3) COVID-19 ICD Codes: U07.1 - COVID-19 SNOMED: 914889773 Assessment/Plan: continue Levemir 18 units daily continue Novolog 6 units ac tid continue Novolog sliding scale ac hs TSH is at target follow Tg - Tg Ab no need for thyroid US as Elkin Bhakta MD Jun 23, 2020 06:26
--- NOTE | 2020-06-23 07:44 | NUR ---
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 Patient Status: Stable Diet: CCHO (M) Pending Orders: N Pending Results/Labs: AM Labs Pending MD notification: N Latest Vital Signs: Temperature 99.1 , Pulse 102 , B/P 136 /85 , Respiratory Rate 20 , O2 SAT 100 , Room Air, O2 Flow Rate . EKG Rhythm: Sinus Tachycardia Rhythm change?: N Latest Mathias Fall Score: 45 Fall Risk: High Risk Safety Measures: Call light Within Reach, Bed Alarm Zone 1, Side Rails Side Rails x2, Bed position Low and Locked. Fall Precautions: Yellow Socks Yellow Gown Patient Fall Education Report given to MELISSA Martinez.
--- NOTE | 2020-06-23 07:46 | NUR ---
NURSE NOTES: Received report from MELISSA Bowles. Patient seen on rounds, awake and up in bed, on room air with no signs of distress. ST on tele monitor. Pt is asymptomatic. PIV site intact, asymptomatic, and patent; running NS @ 75cc/hr. Pt is continent and ambulatory with assistance. Bed is in the lowest position and locked. Call light and bedside table is within reach and instructed to call nurse for assistance. Will continue plan of care.
[2020-06-23 08:00] VITALS: BP 153/99
--- NOTE | 2020-06-23 08:39 | Nephrology Progress Note ---
Assessment/Plan Plan #hyponatremia - hypovolumic vs SIADH in the setting of pneumonia #hypokalemia #COVID pneumonia #diabetes mellitus type 2 # hypertension # asthma # history of thyroid cancer status post thyroidectomy # history of cervical cancer - replete K - TSH - urine chem - antibiotics per - lisinopril 20mg daily - BG control Subjective ROS Limited/Unobtainable: No Constitutional: Reports: weakness HEENT: Denies: no symptoms, eye pain, blurred vision, tearing, double vision, ear pain, ear discharge, nose pain, nose congestion, throat pain, throat swelling, mouth pain, mouth swelling, other Genitourinary: Denies: no symptoms, burning, discharge, frequency, flank pain, hematuria, incontinence, pain, urgency, other Neurologic/Psychiatric: Denies: no symptoms, anxiety, depressed, emotional problems, headache, numbness, paresthesia, pre-existing deficit, seizure, tingling, tremors, weakness, other Subjective K low repeted sodium stable Objective Objective Last 24 Hour Vital Signs Date Time Temp Pulse Resp B/P (MAP) Pulse Ox O2 Delivery O2 Flow Rate FiO2 06/23/20 04:00 99.1 106 20 136/85 (102) 100 06/23/20 04:00 102 06/23/20 00:00 102 06/23/20 00:00 100.0 103 20 110/77 (88) 98 06/22/20 22:03 99.9 06/22/20 22:00 99.9 06/22/20 21:00 Room Air 06/22/20 20:00 111 06/22/20 20:00 101.5 109 22 108/75 (86) 98 06/22/20 16:36 98.7 06/22/20 16:00 96.7 114 18 117/82 (94) 98 06/22/20 16:00 117 06/22/20 12:00 113 06/22/20 12:00 98.7 103 21 130/91 (104) 98 06/22/20 09:05 131/88 06/22/20 09:04 106 131/88 06/22/20 09:00 Room Air Intake and Output 06/22/20 06/23/20 19:00 07:00 Intake Total 300 ml Balance 300 ml Intake Oral 300 ml # Voids 2 2 # Bowel Movements 1 1 Laboratory Tests 06/22/20 08:46: White Blood Count 3.4L, Red Blood Count 5.52H, Hemoglobin 15.1, Hematocrit 43.8, Mean Corpuscular Volume 79L, Mean Corpuscular Hemoglobin 27.4, Mean Corpuscular Hemoglobin Concent 34.5, Red Cell Distribution Width 14.6, Platelet Count 226, Mean Platelet Volume 9.3, Neutrophils (%) (Auto) , Lymphocytes (%) (Auto) , Monocytes (%) (Auto) , Eosinophils (%) (Auto) , Basophils (%) (Auto) , Differential Total Cells Counted 100, Neutrophils % (Manual) 50, Lymphocytes % (Manual) 40, Monocytes % (Manual) 10, Eosinophils % (Manual) 0, Basophils % (Manual) 0, Band Neutrophils 0, Platelet Estimate Adequate, Platelet Morphology Normal, Anisocytosis 1+, Sodium Level 132L, Potassium Level 3.3L, Chloride Level 99, Carbon Dioxide Level 27, Anion Gap 6, Blood Urea Nitrogen 10, Creatinine 1.0, Estimat Glomerular Filtration Rate > 60, Glucose Level 189H, Calcium Level 8.1L, Phosphorus Level 1.4L, Magnesium Level 2.0, Thyroid Stimulating Hormone (TSH) 2.297, Cortisol AM Sample [Pending], Vancomycin Level Trough 16.0H 06/22/20 16:13: POC Whole Blood Glucose [Pending] 06/22/20 16:15: Urine Osmolality 630H, Urine Random Sodium 35 Height (Feet): 5 Height (Inches): 3.00 Weight (Pounds): 200 Lori Sweet M.D. Jun 23, 2020 08:39
--- NOTE | 2020-06-23 08:49 | NUR ---
NURSE NOTES: Received call from Jesenia (Microbiology). Pt is positive VRE rectum. Precautions already in place, will inform MD.
[2020-06-23] MEDS: Docusate 100mg cap ORAL SCH ×2 (08:59→21:00)
[2020-06-23] MEDS: Lisinopril 20mg tab ORAL SCH (08:59)
[2020-06-23] MEDS: Doxycycline Hyclate 100 MG in D5W 110 ML IV SCH (08:59)
[2020-06-23] MEDS: Enoxaparin 40mg Inj SUBQ SCH (09:01)
[2020-06-23] MEDS: Levemir Flexpen SUBQ SCH (09:05)
--- NOTE | 2020-06-23 09:08 | NUR ---
CASE MANAGEMENT:REVIEW 06/23/20 SI: COVID POSITIVE. TACHYCARDIA 100.0 112 20 153/99 100% ON RA IS: IV VANCOMYCIN Q8HRS IV CEFEPIME Q8HR IV DOXYCYCLINE Q12 IVF@75/HR LISINOPRIL PO QD IV PEPCID Q12 NORVASC PO QD LOVENOX SQ Q24 : TELEMETRY STATUS DCP: FROM HOME
[2020-06-23] MEDS: Hydromorphone 0.5mg/0.5ml inj IVP PRN ×2 (09:24→17:48)
[2020-06-23] MEDS: Cefepime HCl 2 GM in D5W 55 ML IVPB SCH (09:54)
--- NOTE | 2020-06-23 09:58 | Neurology Progress Note ---
Interim History Interim History ROS Limited/Unobtainable: No Interim History no PAGE today ambulating Objective Physical Exam Last Vital Signs Date Time Temp Pulse Resp B/P (MAP) Pulse Ox O2 Delivery O2 Flow Rate FiO2 06/23/20 08:59 153/99 06/23/20 08:58 112 06/23/20 08:00 97.3 19 99 06/22/20 21:00 Room Air Laboratory Tests Test 06/22/20 16:13 06/22/20 16:15 POC Whole Blood Glucose Pending Urine Osmolality 630 mOsm/kg (429-449) H Urine Random Sodium 35 mmol/L (20-110) Head: normocophalic Neck: no rigidity EENT: benign Neurologic Exam Mental Status: awake, oriented x4 Speech: normal speech Cranial Nerves III, IV, : PERRLA Cranial Nerve VII: no facial asymmetry Gait: stable Objective no nuchal rigidity moves all 4 Impression/Recommendations Problems: (1) Dyspnea (2) Pain in limb (3) Upper respiratory infection (4) Dehydration (5) Throat pain (6) Anemia (7) Chest wall pain (8) Diverticulosis (9) Hyperglycemia (10) Proteinuria (11) Cervical cancer (12) Acute pharyngitis (13) Hip pain (14) Abdominal pain (15) Chest pain (16) Pharyngitis (17) HTN (hypertension) (18) Muscle spasm of back (19) Chronic pain (20) DM (diabetes mellitus) (21) UTI (lower urinary tract infection) (22) ACS (acute coronary syndrome) (23) Postoperative pain (24) Radiculopathy of cervical spine (25) Opiate withdrawal (26) Diabetes mellitus out of control (27) Degenerative disc disease, cervical (28) Hip osteoarthritis (29) Voiding difficulty (30) Voiding difficulty (31) H/O fracture of right hip (32) Spondylosis of cervical spine (33) COVID-19 (34) cervical myalgia (35) tension headacke Diagnostic Impression COVID pneumonia and sepsis Headache likely 2/2 to above Unlikely meningitis at this point would defer LP cont atb and medical support will follow Mandeep Gracia MD Jun 23, 2020 09:58
[2020-06-23 10:47] LABS: ANION GAP 7 mmol/L (5-15); BLOOD UREA NITROGEN 7 mg/dL (7-18); CALCIUM 7.7 MG/DL (8.5-10.1); CARBON DIOXIDE 25 MMOL/L (21-32); CHLORIDE 101 MMOL/L (98-107); CREATININE 0.8 MG/DL (0.55-1.30); PHOSPHORUS 1.8 MG/DL (2.5-4.9); POTASSIUM 3.1 MMOL/L (3.5-5.1); SODIUM 133 MMOL/L (136-145)
[2020-06-23] MEDS: oxyCODONE 5mg IR tab ORAL PRN (11:14)
[2020-06-23 12:00] VITALS: BP 141/96
--- NOTE | 2020-06-23 13:00 | NUR ---
RD ASSESSMENT & RECOMMENDATIONS SEE CARE ACTIVITY FOR COMPLETE ASSESSMENT DAILY ESTIMATED NEEDS: Needs based on Pulmonary, DM 61.7kg abw 25-30 kcals/kg 8015-2967 total kcals 1-1.5 g protein/kg 62-93 g total protein 25-30 mL/kg 5655-0054 total fluid mLs NUTRITION DIAGNOSIS: Altered nutrition related lab values r/t clinical status as evidenced by elev BP)141/96), low lytes(K 3.1. phos 1.8, Mg 1.5), elev BG (189-259). (CURRENT DIET: CCHO LOW) PO DIET RECOMMENDATIONS-->> LOW NA/ CCHO LOW DIET ADDITIONAL RECOMMENDATIONS: 1) On insulin regimen, monitor for hypoglycemia 2) Add Glucerna 1 tetra BID w/ current variable po intake 3) replete lytes as needed (Low K, phos, mg) 4) Rec HgA1C for eval
[2020-06-23] MEDS ORDERED: Sodium Phosphate 30 MM in NS 275 ML IV ONE (14:00)
--- NOTE | 2020-06-23 15:32 | Infectious Diseases Prog Note ---
Assessment/Plan Assessment/Plan ASSESSMENT AND PLAN: 1. covid-19 infection, CAP, fevers, ? sepsis - change to oral levofloxacin x 4 days - clinically improved - no indication for covid-19 treatment, saturations stable - monitor labs and chest x-ray as indicated - stable ID standpoint 2. COVID isolation. 3. Headache, doubt meningitis. 4. Hyperlipidemia. 5. Diabetes. 6. Hypertension. 7. History of cervical cancer. 8. History of thyroidectomy and goiter. 9. Diabetes and hypertension treatment per primary care team. 10. Continue treatment for hyperlipidemia 11. Allergies to penicillin, tolerates cefepime 12. Social history is negative. 13. Family history is noncontributory. 14. MAR is noted. 15. Case discussed with RN. Subjective Constitutional: Denies: fever HEENT: Reports: congestion Respiratory: Denies: shortness of breath Cardiovascular: Denies: chest pain Gastrointestinal/Abdominal: Denies: nausea, vomiting, diarrhea Neurologic: Denies: headache Psychiatric: Denies: depression Skin: Denies: rash Hematologic: Denies: bleeding Musculoskeletal: Denies: pain Allergies: Coded Allergies: PENICILLINS (Unverified Allergy, Unknown, 12/04/14) Objective Last 24 Hour Vital Signs Date Time Temp Pulse Resp B/P (MAP) Pulse Ox O2 Delivery O2 Flow Rate FiO2 06/23/20 12:00 97.7 110 21 141/96 (111) 99 06/23/20 12:00 139 06/23/20 09:00 Room Air 06/23/20 08:59 153/99 06/23/20 08:58 112 153/99 06/23/20 08:00 97.3 112 19 153/99 (117) 99 06/23/20 08:00 107 06/23/20 04:00 99.1 106 20 136/85 (102) 100 06/23/20 04:00 102 06/23/20 00:00 102 06/23/20 00:00 100.0 103 20 110/77 (88) 98 06/22/20 22:03 99.9 06/22/20 22:00 99.9 06/22/20 21:00 Room Air 06/22/20 20:00 111 06/22/20 20:00 101.5 109 22 108/75 (86) 98 06/22/20 16:36 98.7 06/22/20 16:00 96.7 114 18 117/82 (94) 98 06/22/20 16:00 117 Height (Feet): 5 Height (Inches): 3.00 Weight (Pounds): 200 General Appearance: no acute distress HEENT: normocephalic, atraumatic Respiratory/Chest: no accessory muscle use, crackles/rales, rhonchi - bilaterally Cardiovascular: normal rate, regular rhythm, no gallop/murmur Abdomen: normal bowel sounds, soft, non tender, no organomegaly, non distended Genitourinary: other - no rosas Extremities: no cyanosis Skin: no rash Neurologic/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 There is questionable retrocardiac consolidation again demonstrated. There is evidence of prior CABG Impression: Right mid lung scarring or atelectasis Questionable retrocardiac consolidation Microbiology Date/Time Source Procedure Growth Status 06/19/20 13:05 Rectum - Final NO CARBAPENEM-RESISTANT ENTEROBACTERI... Complete 06/19/20 13:05 Blood Blood Culture - Preliminary NO GROWTH AFTER 48 HOURS Resulted 06/19/20 12:10 Nasopharynx SARS-CoV-2 RdRp Gene Assay - Final Complete blood cultures - negative Labs Test 06/20/20 19:30 06/21/20 06:06 06/21/20 07:51 06/21/20 09:30 White Blood Count 5.6 K/UL (4.8-10.8) 3.9 K/UL (4.8-10.8) Red Blood Count 5.33 M/UL (4.20-5.40) 5.62 M/UL (4.20-5.40) Hemoglobin 14.4 G/DL (12.0-16.0) 15.1 G/DL (12.0-16.0) Hematocrit 43.7 % (37.0-47.0) 45.5 % (37.0-47.0) Mean Corpuscular Volume 82 FL (80-99) 81 FL (80-99) Mean Corpuscular Hemoglobin 27.0 PG (27.0-31.0) 26.8 PG (27.0-31.0) Mean Corpuscular Hemoglobin Concent 33.0 G/DL (32.0-36.0) 33.1 G/DL (32.0-36.0) Red Cell Distribution Width 14.1 % (11.6-14.8) 14.4 % (11.6-14.8) Platelet Count 205 K/UL (150-450) 242 K/UL (150-450) Mean Platelet Volume 10.4 FL (6.5-10.1) 10.3 FL (6.5-10.1) Neutrophils (%) (Auto) 83.4 % (45.0-75.0) 71.2 % (45.0-75.0) Lymphocytes (%) (Auto) 7.9 % (20.0-45.0) 16.3 % (20.0-45.0) Monocytes (%) (Auto) 7.3 % (1.0-10.0) 11.5 % (1.0-10.0) Eosinophils (%) (Auto) 0.0 % (0.0-3.0) 0.0 % (0.0-3.0) Basophils (%) (Auto) 1.4 % (0.0-2.0) 1.1 % (0.0-2.0) Sodium Level 131 MMOL/L (136-145) Potassium Level 3.4 MMOL/L (3.5-5.1) Chloride Level 97 MMOL/L (98-107) Carbon Dioxide Level 18 MMOL/L (21-32) Anion Gap 16 mmol/L (5-15) Blood Urea Nitrogen 11 mg/dL (7-18) Creatinine 0.8 MG/DL (0.55-1.30) Estimat Glomerular Filtration Rate > 60 mL/min (>60) Glucose Level 228 MG/DL (74-106) Calcium Level 8.4 MG/DL (8.5-10.1) Phosphorus Level 3.0 MG/DL (2.5-4.9) 3.3 MG/DL (2.5-4.9) Magnesium Level 1.6 MG/DL (1.8-2.4) 1.5 MG/DL (1.8-2.4) Total Bilirubin 0.3 MG/DL (0.2-1.0) Aspartate Amino Transf (AST/SGOT) 52 U/L (15-37) Alanine Aminotransferase (ALT/SGPT) 56 U/L (12-78) Alkaline Phosphatase 64 U/L (46-116) Total Protein 7.7 G/DL (6.4-8.2) Albumin 2.8 G/DL (3.4-5.0) Globulin 4.9 g/dL Albumin/Globulin Ratio 0.6 (1.0-2.7) POC Whole Blood Glucose 219 MG/DL (74-106) Pro-B-Type Natriuretic Peptide 116 pg/mL (0-125) Thyroid Stimulating Hormone (TSH) 0.960 uiU/mL (0.358-3.740) Free Thyroxine 1.00 NG/DL (0.76-1.46) Vancomycin Level Trough 8.2 ug/mL (5.0-12.0) Thyroglobulin Antibody <1.0 IU/mL (0.0-0.9) Test 06/21/20 15:22 06/21/20 16:15 06/22/20 05:52 06/22/20 08:46 Urine Osmolality 778 mOsm/kg (429-449) Urine Random Sodium 56 mmol/L (20-110) Urine Creatinine 86.1 MG/DL (30.0-125.0) POC Whole Blood Glucose 241 MG/DL (74-106) White Blood Count 3.4 K/UL (4.8-10.8) Red Blood Count 5.52 M/UL (4.20-5.40) Hemoglobin 15.1 G/DL (12.0-16.0) Hematocrit 43.8 % (37.0-47.0) Mean Corpuscular Volume 79 FL (80-99) Mean Corpuscular Hemoglobin 27.4 PG (27.0-31.0) Mean Corpuscular Hemoglobin Concent 34.5 G/DL (32.0-36.0) Red Cell Distribution Width 14.6 % (11.6-14.8) Platelet Count 226 K/UL (150-450) Mean Platelet Volume 9.3 FL (6.5-10.1) Neutrophils (%) (Auto) % (45.0-75.0) Lymphocytes (%) (Auto) % (20.0-45.0) Monocytes (%) (Auto) % (1.0-10.0) Eosinophils (%) (Auto) % (0.0-3.0) Basophils (%) (Auto) % (0.0-2.0) Differential Total Cells Counted 100 Neutrophils % (Manual) 50 % (45-75) Lymphocytes % (Manual) 40 % (20-45) Monocytes % (Manual) 10 % (1-10) Eosinophils % (Manual) 0 % (0-3) Basophils % (Manual) 0 % (0-2) Band Neutrophils 0 % (0-8) Platelet Estimate Adequate Platelet Morphology Normal Anisocytosis 1+ Sodium Level 132 MMOL/L (136-145) Potassium Level 3.3 MMOL/L (3.5-5.1) Chloride Level 99 MMOL/L (98-107) Carbon Dioxide Level 27 MMOL/L (21-32) Anion Gap 6 mmol/L (5-15) Blood Urea Nitrogen 10 mg/dL (7-18) Creatinine 1.0 MG/DL (0.55-1.30) Estimat Glomerular Filtration Rate > 60 mL/min (>60) Glucose Level 189 MG/DL (74-106) Calcium Level 8.1 MG/DL (8.5-10.1) Phosphorus Level 1.4 MG/DL (2.5-4.9) Magnesium Level 2.0 MG/DL (1.8-2.4) Thyroid Stimulating Hormone (TSH) 2.297 uiU/mL (0.358-3.740) Vancomycin Level Trough 16.0 ug/mL (5.0-12.0) Test 06/22/20 16:13 06/22/20 16:15 06/23/20 10:15 06/23/20 11:08 Urine Osmolality 630 mOsm/kg (429-449) Urine Random Sodium 35 mmol/L (20-110) Sodium Level 133 MMOL/L (136-145) Potassium Level 3.1 MMOL/L (3.5-5.1) Chloride Level 101 MMOL/L (98-107) Carbon Dioxide Level 25 MMOL/L (21-32) Anion Gap 7 mmol/L (5-15) Blood Urea Nitrogen 7 mg/dL (7-18) Creatinine 0.8 MG/DL (0.55-1.30) Estimat Glomerular Filtration Rate > 60 mL/min (>60) Glucose Level 259 MG/DL (74-106) Calcium Level 7.7 MG/DL (8.5-10.1) Phosphorus Level 1.8 MG/DL (2.5-4.9) Magnesium Level 1.5 MG/DL (1.8-2.4) POC Whole Blood Glucose 274 MG/DL (74-106) Laboratory Tests Test 06/22/20 16:13 06/22/20 16:15 06/23/20 10:15 06/23/20 11:08 POC Whole Blood Glucose Pending 274 MG/DL (74-106) H Urine Osmolality 630 mOsm/kg (429-449) H Urine Random Sodium 35 mmol/L (20-110) Sodium Level 133 MMOL/L (136-145) L Potassium Level 3.1 MMOL/L (3.5-5.1) L Chloride Level 101 MMOL/L (98-107) Carbon Dioxide Level 25 MMOL/L (21-32) Anion Gap 7 mmol/L (5-15) Blood Urea Nitrogen 7 mg/dL (7-18) Creatinine 0.8 MG/DL (0.55-1.30) Estimat Glomerular Filtration Rate > 60 mL/min (>60) Glucose Level 259 MG/DL (74-106) H Calcium Level 7.7 MG/DL (8.5-10.1) L Phosphorus Level 1.8 MG/DL (2.5-4.9) L Magnesium Level 1.5 MG/DL (1.8-2.4) L Current Medications Medications (Trade) Dose Ordered Sig/Mando Route PRN Reason Start Time Stop Time Status Last Admin Dose Admin Acetaminophen (Tylenol) 650 mg Q4H PRN ORAL Temp >100.5 06/19/20 21:00 07/19/20 20:59 06/20/20 08:49 Acetaminophen (Tylenol) 650 mg Q4H PRN ORAL Mild Pain (Pain Scale 1-3) 06/19/20 21:00 07/19/20 20:59 06/22/20 21:33 Albuterol Sulfate (Proventil MDI) 2 puff Q4H PRN INH Shortness of Breath 06/19/20 22:00 3/19/21 21:59 Amlodipine Besylate (Norvasc) 10 mg DAILY ORAL 06/21/20 09:00 07/21/20 08:59 06/23/20 08:58 Baclofen (Lioresal) 5 mg TID PRN ORAL muscle spasm 06/19/20 21:00 07/19/20 20:59 Bisacodyl (Dulcolax) 10 mg DAILYPRN PRN RECTAL Constipation 06/19/20 21:00 09/17/20 20:59 Cefepime HCl 2 gm/ Dextrose 55 ml @ 110 mls/hr Q8H IVPB 06/19/20 23:30 06/26/20 23:29 06/23/20 09:54 Dextrose (Dextrose 50%) 25 ml Q30M PRN IV Hypoglycemia 06/19/20 21:00 09/17/20 20:59 Dextrose (Dextrose 50%) 50 ml Q30M PRN IV Hypoglycemia 06/19/20 21:00 09/17/20 20:59 Diphenhydramine HCl (Benadryl) 50 mg Q6H PRN IVP Itching 06/20/20 03:00 07/20/20 02:59 06/20/20 15:38 Docusate Sodium (Colace) 100 mg EVERY 12 HOURS ORAL 06/19/20 21:00 07/19/20 20:59 06/23/20 08:59 Doxycycline Hyclate 100 mg/ Dextrose 110 ml @ 110 mls/hr Q12HR IV 06/21/20 12:00 06/28/20 11:59 06/23/20 08:59 Enoxaparin Sodium (Lovenox) 40 mg Q24H SUBQ 06/20/20 09:00 09/18/20 08:59 06/23/20 09:01 Famotidine (Pepcid I.v.) 20 mg Q12HR IVP 06/21/20 09:00 07/21/20 08:59 06/23/20 08:59 Hydralazine HCl (Apresoline) 10 mg Q4H PRN IV SBP >160 06/19/20 21:00 09/17/20 20:59 06/20/20 23:20 Hydromorphone HCl (Dilaudid) 0.2 mg Q4H PRN IVP Moderate Pain (Pain Scale 4-6) 06/21/20 13:45 06/28/20 13:44 06/21/20 18:28 Hydromorphone HCl (Dilaudid) 0.4 mg Q4H PRN IVP Severe Pain (Pain Scale 7-10) 06/21/20 13:45 06/28/20 13:44 06/23/20 09:24 Insulin Aspart (NovoLOG) BEFORE MEALS AND HS SUBQ 06/19/20 21:00 09/17/20 20:59 06/23/20 13:28 Insulin Aspart (NovoLOG) 6 units NOVOTIAC SUBQ 06/22/20 11:50 09/19/20 11:49 06/23/20 13:29 Insulin Detemir (Levemir) 18 units DAILY SUBQ 06/22/20 09:00 09/18/20 08:59 06/23/20 09:05 Lisinopril (PriniviL) 20 mg DAILY ORAL 06/21/20 09:00 07/21/20 08:59 06/23/20 08:59 Lorazepam (Ativan 2mg/ml 1ml) 0.5 mg Q4H PRN IV For Anxiety 06/19/20 21:00 06/26/20 20:59 Ondansetron HCl (Zofran) 4 mg Q6H PRN IVP Nausea & Vomiting 06/19/20 21:00 07/19/20 20:59 06/21/20 10:33 Oxycodone HCl (Roxicodone) 5 mg Q4H PRN ORAL Breakthrough Pain 06/19/20 21:00 06/26/20 20:59 Oxycodone HCl (Roxicodone) 5 mg Q6H PRN ORAL severe pain 06/19/20 21:00 06/26/20 20:59 06/23/20 11:14 Polyethylene Glycol (Miralax) 17 gm DAILYPRN PRN ORAL Constipation 06/19/20 21:00 07/19/20 20:59 Potassium Chloride (K-Dur) 40 meq Q4H ORAL 06/23/20 11:30 06/23/20 15:31 06/23/20 11:45 Prochlorperazine (Compazine) 10 mg Q6H PRN IVP Nausea & Vomiting-2ND 06/19/20 21:00 07/19/20 20:59 Sodium Chloride 1,000 ml @ 75 mls/hr [id number] IVLG 06/19/20 22:00 07/19/20 21:59 06/23/20 06:11 Sodium Phosphate 30 mm/Sodium Chloride 285 ml @ 47.5 mls/hr ONCE ONCE IV 06/23/20 14:00 06/23/20 19:59 06/23/20 14:44 Tramadol HCl (Ultram) 50 mg Q6H PRN ORAL moderate pain 06/19/20 21:00 06/26/20 20:59 06/20/20 08:47 Vancomycin HCl (Vanco pharmacy to dose) 1 ea DAILY PRN MISC Per rx protocol 06/19/20 22:15 07/19/20 22:14 Vancomycin HCl 1 gm/Dextrose 275 ml @ 183.708 mls/hr Q8HR@0200,1000,1800 IVPB 06/21/20 18:00 06/26/20 17:59 06/23/20 11:42 Mike Urias MD Jun 23, 2020 15:32
[2020-06-23 16:00] VITALS: BP 132/62
[2020-06-23] MEDS ORDERED: Levofloxacin 750mg tab ORAL SCH (16:00)
--- NOTE | 2020-06-23 17:19 | General Progress Note ---
Subjective Date patient seen: Jun 23, 2020 ROS Limited/Unobtainable: No Allergies: Coded Allergies: PENICILLINS (Unverified Allergy, Unknown, 12/04/14) Subjective No acute events overnight per nursing. Telemetry reviewed. Patient remains in sinus tachycardia. Patient feeling same as yesterday, some nausea. No SOB. Still some myalgias. Ate food and did not vomit. Review of systems: Constitutional: Denies: chills, diaphoresis, fever, malaise, weakness + myalgias, HEENT: Denies headache, no vision changes Cardiovascular: Denies: chest pain, edema, lightheadedness, palpitations Respiratory: Denies: cough, orthopnea, shortness of breath, SOB with excertion, SOB at rest, Gastrointestinal/Abdominal: Denies: abdominal pain, black stools, blood in stool, constipation, diarrhea, nausea, poor fluid intake vomiting, other Genitourinary: Denies: burning, discharge, frequency, Neurologic/Psychiatric: Denies: headache, numbness, paresthesia, new weakness, other Endocrine: Denies: excessive sweating, flushing, intolerance to cold, MSK: denies joint pains, swelling, stiffness Hematologic/Lymphatic: Denies: anemia, easy bleeding, easy bruising, Objective Last 24 Hour Vital Signs Date Time Temp Pulse Resp B/P (MAP) Pulse Ox O2 Delivery O2 Flow Rate FiO2 06/23/20 16:00 97.2 67 19 132/62 (85) 97 06/23/20 16:00 109 06/23/20 12:00 97.7 110 21 141/96 (111) 99 06/23/20 12:00 139 06/23/20 09:00 Room Air 06/23/20 08:59 153/99 06/23/20 08:58 112 153/99 06/23/20 08:00 97.3 112 19 153/99 (117) 99 06/23/20 08:00 107 06/23/20 04:00 99.1 106 20 136/85 (102) 100 06/23/20 04:00 102 06/23/20 00:00 102 06/23/20 00:00 100.0 103 20 110/77 (88) 98 06/22/20 22:03 99.9 06/22/20 22:00 99.9 06/22/20 21:00 Room Air 06/22/20 20:00 111 06/22/20 20:00 101.5 109 22 108/75 (86) 98 Intake and Output 06/22/20 06/23/20 19:00 07:00 Intake Total 300 ml Balance 300 ml Intake Oral 300 ml # Voids 2 2 # Bowel Movements 1 1 Laboratory Tests 06/23/20 10:15: Sodium Level 133L, Potassium Level 3.1L, Chloride Level 101, Carbon Dioxide Level 25, Anion Gap 7, Blood Urea Nitrogen 7, Creatinine 0.8, Estimat Glomerular Filtration Rate > 60, Glucose Level 259H, Calcium Level 7.7L, Phosphorus Level 1.8L, Magnesium Level 1.5L 06/23/20 11:08: POC Whole Blood Glucose 274H 06/23/20 16:46: POC Whole Blood Glucose 195H Height (Feet): 5 Height (Inches): 3.00 Weight (Pounds): 200 Objective General: WDWN /female in NAD, A&O x 4, resting in bed eating, comfortable appearing HEENT: Normocephalic cephalic atraumatic, pupils equal round reactive to light and accommodation, nares patent and no symmetrical, no tonsillar exudates, mucous membranes moist CV: Tachycardic, regular rhythm, no murmurs, rubs, or gallops Pulm: Lungs clear to auscultation bilaterally. No wheezes, rhonchi, or rales GI: Soft, nontender, nondistended, bowel sounds present Neuro: CN 2-12 intact bilaterally, no focal signs. Ext: No lower extremity edema bilaterally Skin: no rashes lesions or ulcers Msk: Joints symmetrical in upper extremity and lower extremity bilaterally, no joint swelling. Lymph: No lymphadenopathy in upper extremity and lower extremity Assessment/Plan Assessment/Plan: This is a 49 year old female p/w sepsis due to COVID pneumonia, headache, neck pain, #Covid pneumonia - resolving, off of oxygen now #LLL opacity, rule out superimposed HAP vs. CAP #Sepsis (fever, tachycardia) due to COVID #fatigue #myalgias #PCN allergy -> hives/itching. No anaphylaxis. Has gotten cephalosporins without any issues. > LDH 328, CRP 21.4, lactate 1.2, d-dimer 0.99 > onset of symptoms 06/17/20 -Admit to telemetry -Blood cultures -Vanc per pharm (06/19 - 06/23) -Cefepime 2gm Q8hr (06/19 - 06/23) -Flagyl (06/19 - 06/23) -Doxycyline (06/20 - 06/23) - Start levaquin today plus 4 more days upon discharge -Abx per ID - Gentle IV fluids - pulmonary hygiene - albuterol PRN -Appreciate ID consult: Dr. Steele -Consider Dex/Remdesivir if patient becomes hypoxic. D/w ID #hyponatremia, suspect hypovolemic, worsening even while on fluids - trend sodium. RN to draw labs - IV fluids as above - repeat lytes - Nephro consulted: Dr. Sweet #nausea/vomiting likely due to COVID illness > no abdominal pain > + flatus, and BM. NO diarrhea - Anti-emetics - If develops pain then low threshold for CT scan and GI eval - Start IV pepcid #Severe headache, suspect due to COVID. R/o intracranial process (CT head negative). R/o meningitis (tho less likely) > Doubt meningitis per Neuro and ID #nausea #possible cervical radiculopathy from last admit > Unable to perform LP in Ed. Ok to defer per Neuro -Appreciate neurology consult: Dr. Gracia -Appreciate ID consult: Dr. Steele - Treat with broad spectrum abx - Vanc per pharm (06/19 - ) - Cefepime 2gm Q8hr (06/19 - ) - abx per ID -Consider MRI C spine if able (previously unable to tolerate - change to dilaudid IV PRN 0.2mg/0.4mg PRN. Patient does not want morphine - instructed RN to only give if unable to tolerate PO #s/p Chest Pain #Sinus tachycardia suspected secondary to sepsis from Covid #right groin pain. No signs of hematoma on exam. Pulses palpable. Has pain all over body. RF - , female, dm2 > Dobutamine stress test positive >EKG reviewed on admission - s/p cardiac cath at OSH in [facility]. Dr. Mcgee - Cardiology consulted: Dr. Dos Santos - Continue Statin - troponin - EKG prn for chest pain - Keep K>4 and Mag >2 #Bilateral Lower extremity swelling - venous duplex to rule out DVT: neg #Right side goiter #s/p thyroidectomy - lost to follow up - repeat Thyroid US: reviewed - endocrinology consult: Dr. Pradhan - Can repeat thyroid US as outpatient #h/o cervical cancer - lost to follow up - outpatient follow up with oncology - patient understands importance of follow up #DM2 - Insulin dependent DM2 - Takes 20U of Long acting insulin in AM - insulin per endocrinology - ACHS BG - SSI - hypoglycemia protocol - diabetic diet #HTN - Increase back to amlodipine 10mg daily - Restart lisinopril 20mg daily - hydralazine PRN #Hx of Asthma - prn albuterol treatment #HLD - Continue atorvastatin FENPPX DVTPPX: lovenox Fluids: as above Diet: Diabetic Lines: PIV PT/OT: pending Code status: Full Dispo: Likely Home Reason for Continued Hospitalization: COVID, monitor on PO antibiotics, likely discharge tomorrow MIPS ([employer]-based [employer]centive Payment System) Applicable CPT: 80807, 73794 CHECK ALL THAT ARE MET: [] Measure #5 (CHF): All ages. Prescribe TRINA/ARB upon discharge for patients with left ventricular systolic dysfunction. If not, the reason is clearly documented in the medical chart [] Measure #8 (CHF): All ages. Prescribe a beta reggie upon discharge for patients with left ventricular systolic dysfunction. If not, the reason is clearly documented in the medical chart. [x] Measure #47: Advance care plan or surrogate decision maker documented in the medical record. [x] Measure #130 The provider has documented, updated, or reviewed the patients current medication list and has documented it in the patients note. [] Measure #374 (All): Send report to referring provider. [] Measure #407(Sepsis due to MSSA bacteremia): Age 18+ Patient treated with a beta-lactam antibiotic (Nafcillin, Oxacillin or Cefazolin) as definitive th erapy. MEDICAL COMPLEXITYHigh complexity medical decision making (need 2/3 categories)Problem - need 4 points [x]Acute/new problem with new plan for workup (4 points, 1 max) [] Acute/new problem without additional workup (3 points, 1 max) [] Unstable chronic problem actively being managed (2 point each, 2 max) [x] Stable chronic problem actively being managed (1 point each, 2 max) [x] Self-limited/transient process (constipation, muscle ache, etc) (1 point each, 2 max) Data - need 4 points [x] Reviewed labs/imaging studies (1 points, 2 max) [x] Independent review of imaging (EKG, xrays, etc) (2 points, 2 max) [x] Discussed case with consult/other MD/RN (2 points, 2 max) High Risk - qualify if have one of the following: [x] Severe exacerbation of acute problem, acute mental status change, IV narcotics, monitoring drug levels (vancomycin, INR, tacrolimus etc) I spent 35 minutes on this patient's case, and 24 mins was dedicated to counseling and/or care coordination. Discussed with ID, Neuro, Cardiology, nephrology, endocrinology. Time of note may not reflect time of encounter Roger Monterroso M.D. Jun 23, 2020 17:19
--- NOTE | 2020-06-23 18:57 | NUR ---
NURSE HAND-OFF REPORT: Important Events on Shift: Given KCL 40meqs PO x2, Magnesium xsulfate IV x1, Sodium phosphate currently ongoing, PIV reinserted on right antecubital as pt complained of pain previous site Patient Status: Stable Diet: CCHO Low Pending Orders: N Pending Results/Labs:N Pending MD notification:N Latest Vital Signs: Temperature 97.2 , Pulse 109 , B/P 132 /62 , Respiratory Rate 19 , O2 SAT 97 , Room Air, O2 Flow Rate . Vital Sign Comment: EKG Rhythm: Sinus Tachycardia Rhythm change?: N MD Notified?: - MD Response: Latest Mathias Fall Score: 45 Fall Risk: High Risk Safety Measures: Call light Within Reach, Bed Alarm Zone 1, Side Rails Side Rails x2, Bed position Low and Locked. Fall Precautions: Yellow Socks Yellow Gown Patient Fall Education Report given to Tim TORRES.
--- NOTE | 2020-06-23 19:55 | NUR ---
NURSE NOTES: Received patient from MELISSA Martinez. Patient awake, alert, and able to verbalize needs. IV sites patent and flushed. On room air, saturating well. Noted to have episodes of nausea and vomiting during the previous shift. Bed in lowest position, brakes engaged and bed alarm on. Call light placed within reach. Will continue to monitor.
[2020-06-23 20:00] VITALS: BP 137/82
--- NOTE | 2020-06-23 21:24 | NUR ---
NURSE NOTES: IV site on left wrist removed by patient. IV site on right AC, infiltrated. Pt refused another IV insertion saying "all my IVs are blowing and bruising. No more." Will inform .
--- NOTE | 2020-06-23 21:33 | NUR ---
NURSE NOTES: Called and left a message regarding patient's refusal for IVs. Awaiting call back.
--- NOTE | 2020-06-23 21:46 | NUR ---
NURSE NOTES: Dr. Sawant aware of patient's refusal for IV starts. No new orders.
[2020-06-24] VITALS: BP 149/77
[2020-06-24] MEDS: oxyCODONE 5mg IR tab ORAL PRN (02:18)
[2020-06-24 04:00] VITALS: BP 153/83
--- NOTE | 2020-06-24 04:10 | NUR ---
NURSE NOTES: Pt seen resting in bed. No IV access at this time. Not in acute distress. Bed in lowest position, brakes engaged and bed alarm on. Call light placed within reach. Will continue to monitor.
--- NOTE | 2020-06-24 06:11 | General Progress Note ---
Subjective ROS Limited/Unobtainable: Yes Allergies: Coded Allergies: PENICILLINS (Unverified Allergy, Unknown, 12/04/14) Subjective events noted TSH is normal glucose values are improving Item Value Date Time Bedside Blood Glucose 101 mg/dl 06/23/20 2100 Bedside Blood Glucose 195 mg/dl H 06/23/20 1703 Bedside Blood Glucose 274 mg/dl H 06/23/20 1329 Bedside Blood Glucose 226 mg/dl H 06/23/20 0905 Bedside Blood Glucose 226 mg/dl H 06/23/20 0635 Objective Last 24 Hour Vital Signs Date Time Temp Pulse Resp B/P (MAP) Pulse Ox O2 Delivery O2 Flow Rate FiO2 06/24/20 04:00 105 06/24/20 00:00 109 06/24/20 00:00 97.9 110 20 149/77 (101) 95 06/23/20 21:00 Room Air 06/23/20 20:00 98.0 114 20 137/82 (100) 94 06/23/20 20:00 111 06/23/20 18:18 97.2 06/23/20 16:00 97.2 67 19 132/62 (85) 97 06/23/20 16:00 109 06/23/20 12:00 97.7 110 21 141/96 (111) 99 06/23/20 12:00 139 06/23/20 09:00 Room Air 06/23/20 08:59 153/99 06/23/20 08:58 112 153/99 06/23/20 08:00 97.3 112 19 153/99 (117) 99 06/23/20 08:00 107 l Intake and Output 06/23/20 06/24/20 19:00 07:00 Intake Total 480 ml Balance 480 ml Intake Oral 480 ml # Bowel Movements 1 1 Laboratory Tests 06/23/20 10:15: Sodium Level 133L, Potassium Level 3.1L, Chloride Level 101, Carbon Dioxide Level 25, Anion Gap 7, Blood Urea Nitrogen 7, Creatinine 0.8, Estimat Glomerular Filtration Rate > 60, Glucose Level 259H, Calcium Level 7.7L, Phosphorus Level 1.8L, Magnesium Level 1.5L 06/23/20 11:08: POC Whole Blood Glucose 274H 06/23/20 16:46: POC Whole Blood Glucose 195H 12/23/20 21:16: POC Whole Blood Glucose 101 Height (Feet): 5 Height (Inches): 3.00 Weight (Pounds): 200 Objective Current Medications Medications (Trade) Dose Ordered Sig/Mando Route PRN Reason Start Time Stop Time Status Last Admin Dose Admin Acetaminophen (Tylenol) 650 mg Q4H PRN ORAL Temp >100.5 06/19/20 21:00 07/19/20 20:59 06/20/20 08:49 Acetaminophen (Tylenol) 650 mg Q4H PRN ORAL Mild Pain (Pain Scale 1-3) 06/19/20 21:00 07/19/20 20:59 06/22/20 21:33 Albuterol Sulfate (Proventil MDI) 2 puff Q4H PRN INH Shortness of Breath 06/19/20 22:00 09/17/20 21:59 Amlodipine Besylate (Norvasc) 10 mg DAILY ORAL 06/21/20 09:00 07/21/20 08:59 06/23/20 08:58 Baclofen (Lioresal) 5 mg TID PRN ORAL muscle spasm 06/19/20 21:00 07/19/20 20:59 Bisacodyl (Dulcolax) 10 mg DAILYPRN PRN RECTAL Constipation 06/19/20 21:00 09/17/20 20:59 Dextrose (Dextrose 50%) 25 ml Q30M PRN IV Hypoglycemia 06/19/20 21:00 09/17/20 20:59 Dextrose (Dextrose 50%) 50 ml Q30M PRN IV Hypoglycemia 06/19/20 21:00 09/17/20 20:59 Diphenhydramine HCl (Benadryl) 50 mg Q6H PRN IVP Itching 06/20/20 03:00 07/20/20 02:59 06/20/20 15:38 Docusate Sodium (Colace) 100 mg EVERY 12 HOURS ORAL 06/19/20 21:00 07/19/20 20:59 06/23/20 08:59 Enoxaparin Sodium (Lovenox) 40 mg Q24H SUBQ 06/20/20 09:00 09/18/20 08:59 06/23/20 09:01 Famotidine (Pepcid I.v.) 20 mg Q12HR IVP 06/21/20 09:00 07/21/20 08:59 06/23/20 08:59 Hydralazine HCl (Apresoline) 10 mg Q4H PRN IV SBP >160 06/19/20 21:00 09/17/20 20:59 06/20/20 23:20 Hydromorphone HCl (Dilaudid) 0.2 mg Q4H PRN IVP Moderate Pain (Pain Scale 4-6) 06/21/20 13:45 06/28/20 13:44 06/21/20 18:28 Hydromorphone HCl (Dilaudid) 0.4 mg Q4H PRN IVP Severe Pain (Pain Scale 7-10) 06/21/20 13:45 06/28/20 13:44 06/23/20 17:48 Insulin Aspart (NovoLOG) BEFORE MEALS AND HS SUBQ 06/19/20 21:00 09/17/20 20:59 06/23/20 17:02 Insulin Aspart (NovoLOG) 6 units NOVOTIAC SUBQ 06/22/20 11:50 09/19/20 11:49 06/23/20 17:03 Insulin Detemir (Levemir) 18 units DAILY SUBQ 06/22/20 09:00 09/18/20 08:59 06/23/20 09:05 Levofloxacin (Levaquin) 750 mg DAILY ORAL 06/23/20 16:00 06/30/20 15:59 06/23/20 16:33 Lisinopril (PriniviL) 20 mg DAILY ORAL 06/21/20 09:00 07/21/20 08:59 06/23/20 08:59 Lorazepam (Ativan 2mg/ml 1ml) 0.5 mg Q4H PRN IV For Anxiety 06/19/20 21:00 06/26/20 20:59 Ondansetron HCl (Zofran) 4 mg Q6H PRN IVP Nausea & Vomiting 06/19/20 21:00 07/19/20 20:59 06/23/20 20:17 Oxycodone HCl (Roxicodone) 5 mg Q4H PRN ORAL Breakthrough Pain 06/19/20 21:00 06/26/20 20:59 Oxycodone HCl (Roxicodone) 5 mg Q6H PRN ORAL severe pain 06/19/20 21:00 06/26/20 20:59 06/24/20 02:18 Polyethylene Glycol (Miralax) 17 gm DAILYPRN PRN ORAL Constipation 06/19/20 21:00 07/19/20 20:59 Prochlorperazine (Compazine) 10 mg Q6H PRN IVP Nausea & Vomiting-2ND 06/19/20 21:00 07/19/20 20:59 Sodium Chloride 1,000 ml @ 75 mls/hr [id number] IVLG 06/19/20 22:00 07/19/20 21:59 06/23/20 20:17 Tramadol HCl (Ultram) 50 mg Q6H PRN ORAL moderate pain 06/19/20 21:00 06/26/20 20:59 06/20/20 08:47 Assessment/Plan Problem List: (1) Hx of thyroid cancer ICD Codes: Z85.850 - Personal history of malignant neoplasm of thyroid SNOMED: 505085255 (2) Diabetes mellitus out of control ICD Codes: E11.65 - Diabetes mellitus out of control SNOMED: 623385890 (3) COVID-19 ICD Codes: U07.1 - COVID-19 SNOMED: 315289090 Assessment/Plan: continue Levemir 18 units daily continue Novolog 6 units ac tid continue Novolog sliding scale ac hs TSH is at target follow Tg - Tg Ab no need for thyroid US as IP - work up of thyroid mass as OP once cleared from COVID-19 Elkin Pradhan MD Jun 24, 2020 06:11
[2020-06-24] MEDS: NovoLOG Insulin Flexpen SUBQ SCH ×2 (06:16→06:17)
[2020-06-24 07:21] LABS: ALANINE AMINOTRANSFERASE 28 U/L (12-78); ALBUMIN 2.3 G/DL (3.4-5.0); ALBUMIN/GLOBULIN RATIO 0.5 (1.0-2.7); ALKALINE PHOSPHATASE 48 U/L (46-116); ANION GAP 6 mmol/L (5-15); ASPARTATE AMINO TRANSFERASE 29 U/L (15-37); BILIRUBIN,TOTAL 0.2 MG/DL (0.2-1.0); BLOOD UREA NITROGEN 5 mg/dL (7-18); CARBON DIOXIDE 30 MMOL/L (21-32); CHLORIDE 102 MMOL/L (98-107); CREATININE 0.8 MG/DL (0.55-1.30); POTASSIUM 3.3 MMOL/L (3.5-5.1); SODIUM 137 MMOL/L (136-145)
--- NOTE | 2020-06-24 07:31 | NUR ---
NURSE HAND-OFF REPORT: Important Events on Shift:[No IV access; Pt refused IV insertion. MD aware] Patient Status: [Full code] Diet: [CCHO low] Pending Orders: [] Pending Results/Labs:[] Pending MD notification:[] Latest Vital Signs: Temperature 98.2 , Pulse 104 , B/P 153 /83 , Respiratory Rate 20 , O2 SAT 93 , Room Air, O2 Flow Rate . Vital Sign Comment: [] EKG Rhythm: Sinus Tachycardia Rhythm change?: N MD Notified?: - MD Response: Latest Mathias Fall Score: 45 Fall Risk: High Risk Safety Measures: Call light Within Reach, Bed Alarm Zone 1, Side Rails Side Rails x2, Bed position Low and Locked. Fall Precautions: Yellow Socks Yellow Gown Patient Fall Education Report given to [MELISSA chavez].
--- NOTE | 2020-06-24 07:32 | NUR ---
NURSE NOTES: RECEIVED AM REPORT. PT IS AWAKE AND ALERT IN BED. VERBALLY RESPONSIVE. NO ACUTE DISTRESS NOTED AT THIS TIME. CALL LIGHT WITHIN REACH.
--- NOTE | 2020-06-24 08:00 | NUR ---
NURSE NOTES: PT CALLED RN TO THE ROOM, STATES "I WANT TO GO HOME NOW, I DON'T WANT TO BE HERE." RN ENCOURAGED PT TO VERBALIZE HER FEELINGS. PT STATES "I JUST WANT TO GO HOME." NO ACUTE DISTRESS NOTED.
[2020-06-24 08:09] LABS: HEMATOCRIT 40.8 % (37.0-47.0); MEAN CORPUSCULAR VOLUME 81 FL (80-99); PLATELET COUNT 225 K/UL (150-450); RED BLOOD COUNT 5.07 M/UL (4.20-5.40); RED CELL DISTRIBUTION WIDTH 13.8 % (11.6-14.8); WHITE BLOOD COUNT 2.7 K/UL (4.8-10.8)
--- NOTE | 2020-06-24 08:26 | Nephrology Progress Note ---
Assessment/Plan Plan #hyponatremia - hypovolumic vs SIADH in the setting of pneumonia #hypokalemia #COVID pneumonia #diabetes mellitus type 2 # hypertension # asthma # history of thyroid cancer status post thyroidectomy # history of cervical cancer - replete K - TSH - urine chem - antibiotics per - lisinopril 20mg daily - BG control Subjective ROS Limited/Unobtainable: No Constitutional: Reports: weakness HEENT: Denies: no symptoms, eye pain, blurred vision, tearing, double vision, ear pain, ear discharge, nose pain, nose congestion, throat pain, throat swelling, mouth pain, mouth swelling, other Genitourinary: Denies: no symptoms, burning, discharge, frequency, flank pain, hematuria, incontinence, pain, urgency, other Neurologic/Psychiatric: Denies: no symptoms, anxiety, depressed, emotional problems, headache, numbness, paresthesia, pre-existing deficit, seizure, tingling, tremors, weakness, other Subjective K low repeted sodium stable Objective Objective Last 24 Hour Vital Signs Date Time Temp Pulse Resp B/P (MAP) Pulse Ox O2 Delivery O2 Flow Rate FiO2 06/24/20 04:00 105 06/24/20 04:00 98.2 104 20 153/83 (106) 93 06/24/20 00:00 109 06/24/20 00:00 97.9 110 20 149/77 (101) 95 06/23/20 21:00 Room Air 06/23/20 20:00 98.0 114 20 137/82 (100) 94 06/23/20 20:00 111 06/23/20 18:18 97.2 06/23/20 16:00 97.2 67 19 132/62 (85) 97 06/23/20 16:00 109 06/23/20 12:00 97.7 110 21 141/96 (111) 99 06/23/20 12:00 139 06/23/20 09:00 Room Air 06/23/20 08:59 153/99 06/23/20 08:58 112 153/99 Intake and Output 06/23/20 06/24/20 19:00 07:00 Intake Total 480 ml 100 ml Balance 480 ml 100 ml Intake Oral 480 ml 100 ml # Voids 2 # Bowel Movements 1 1 Laboratory Tests 06/23/20 10:15: Sodium Level 133L, Potassium Level 3.1L, Chloride Level 101, Carbon Dioxide Level 25, Anion Gap 7, Blood Urea Nitrogen 7, Creatinine 0.8, Estimat Glomerular Filtration Rate > 60, Glucose Level 259H, Calcium Level 7.7L, Phosphorus Level 1 .8L, Magnesium Level 1.5L 06/23/20 11:08: POC Whole Blood Glucose 274H 06/23/20 16:46: POC Whole Blood Glucose 195H 06/23/20 21:16: POC Whole Blood Glucose 101 06/24/20 06:35: White Blood Count 2.7L, Red Blood Count 5.07, Hemoglobin 14.0, Hematocrit 40.8, Mean Corpuscular Volume 81, Mean Corpuscular Hemoglobin 27.5, Mean Corpuscular Hemoglobin Concent 34.2, Red Cell Distribution Width 13.8, Platelet Count 225, Mean Platelet Volume 9.8, Neutrophils (%) (Auto) , Lymphocytes (%) (Auto) , Monocytes (%) (Auto) , Eosinophils (%) (Auto) , Basophils (%) (Auto) , Neutrophils % (Manual) [Pending], Lymphocytes % (Manual) [Pending], Platelet Estimate [Pending], Platelet Morphology [Pending], Sodium Level 137, Potassium Level 3.3L, Chloride Level 102, Carbon Dioxide Level 30, Anion Gap 6, Blood Urea Nitrogen 5L, Creatinine 0.8, Estimat Glomerular Filtration Rate > 60, Glucose Level 153#H, Calcium Level 8.0L, Total Bilirubin 0.2, Aspartate Amino Transf (AST/SGOT) 29, Alanine Aminotransferase (ALT/SGPT) 28, Alkaline Phosphatase 48, Total Protein 6.7, Albumin 2.3L, Globulin 4.4, Albumin/Globulin Ratio 0.5L Height (Feet): 5 Height (Inches): 3.00 Weight (Pounds): 200 Lori Sweet M.D. Jun 24, 2020 08:26
--- NOTE | 2020-06-24 08:36 | NUR ---
NURSE NOTES: RN EDUCATES PT ABOUT LEAVING AMA. PT AGREES TO SIGN AMA FORM. PT SIGNS FORM AND DISCHARGES FORM THE THE HOSPITAL AT THIS TIME. NO ACUTE DISTRESS NOTED UPON DISCHARGE. PT LEFT WITH ALL HER BELONGINGS.
--- NOTE | 2020-06-24 08:47 | NUR ---
CASE MANAGEMENT:REVIEW 06/24/20 SI: COVID POSITIVE. TACHYCARDIA 98.2 110 20 153/83 93% ON RA WBC-2.7 K-3.3 GLUCOSE+153 IS: K-DUR PO X1 LEVAQUIN PO QD INSULIN SQ TID LEVEMIR SQ QD LISINOPRIL PO QD IV PEPCID Q12 NORVASC PO QD LOVENOX SQ Q24 IVF@75/HR : TELEMETRY STATUS DCP: FROM HOME PLAN: MONITOR HEART RATE
--- NOTE | 2020-06-24 20:24 | Neurology Progress Note ---
Interim History Interim History ROS Limited/Unobtainable: No Interim History PAGE resolved ok for home Objective Physical Exam Last Vital Signs Date Time Temp Pulse Resp B/P (MAP) Pulse Ox O2 Delivery O2 Flow Rate FiO2 06/24/20 04:00 105 06/24/20 04:00 98.2 20 153/83 (106) 93 06/23/20 21:00 Room Air Laboratory Tests Test 06/23/20 21:16 06/24/20 06:35 POC Whole Blood Glucose 101 MG/DL (74-106) White Blood Count 2.7 K/UL (4.8-10.8) L Red Blood Count 5.07 M/UL (4.20-5.40) Hemoglobin 14.0 G/DL (12.0-16.0) Hematocrit 40.8 % (37.0-47.0) Mean Corpuscular Volume 81 FL (80-99) Mean Corpuscular Hemoglobin 27.5 PG (27.0-31.0) Mean Corpuscular Hemoglobin Concent 34.2 G/DL (32.0-36.0) Red Cell Distribution Width 13.8 % (11.6-14.8) Platelet Count 225 K/UL (150-450) Mean Platelet Volume 9.8 FL (6.5-10.1) Neutrophils (%) (Auto) % (45.0-75.0) Lymphocytes (%) (Auto) % (20.0-45.0) Monocytes (%) (Auto) % (1.0-10.0) Eosinophils (%) (Auto) % (0.0-3.0) Basophils (%) (Auto) % (0.0-2.0) Differential Total Cells Counted 100 Neutrophils % (Manual) 41 % (45-75) L Lymphocytes % (Manual) 46 % (20-45) H Monocytes % (Manual) 13 % (1-10) H Eosinophils % (Manual) 0 % (0-3) Basophils % (Manual) 0 % (0-2) Band Neutrophils 0 % (0-8) Platelet Estimate Adequate Platelet Morphology Normal Red Blood Cell Morphology Normal Sodium Level 137 MMOL/L (136-145) Potassium Level 3.3 MMOL/L (3.5-5.1) L Chloride Level 102 MMOL/L (98-107) Carbon Dioxide Level 30 MMOL/L (21-32) Anion Gap 6 mmol/L (5-15) Blood Urea Nitrogen 5 mg/dL (7-18) L Creatinine 0.8 MG/DL (0.55-1.30) Estimat Glomerular Filtration Rate > 60 mL/min (>60) Glucose Level 153 MG/DL (74-106) #H Calcium Level 8.0 MG/DL (8.5-10.1) L Total Bilirubin 0.2 MG/DL (0.2-1.0) Aspartate Amino Transf (AST/SGOT) 29 U/L (15-37) Alanine Aminotransferase (ALT/SGPT) 28 U/L (12-78) Alkaline Phosphatase 48 U/L (46-116) Total Protein 6.7 G/DL (6.4-8.2) Albumin 2.3 G/DL (3.4-5.0) L Globulin 4.4 g/dL Albumin/Globulin Ratio 0.5 (1.0-2.7) L Head: normocophalic Neck: no rigidity EENT: benign Neurologic Exam Mental Status: awake, oriented x4 Speech: normal speech Cranial Nerves III, IV, : PERRLA Cranial Nerve VII: no facial asymmetry Gait: stable Objective no nuchal rigidity moves all 4 Impression/Recommendations Problems: (1) Dyspnea (2) Pain in limb (3) Upper respiratory infection (4) Dehydration (5) Throat pain (6) Anemia (7) Chest wall pain (8) Diverticulosis (9) Hyperglycemia (10) Proteinuria (11) Cervical cancer (12) Acute pharyngitis (13) Hip pain (14) Abdominal pain (15) Chest pain (16) Pharyngitis (17) HTN (hypertension) (18) Muscle spasm of back (19) Chronic pain (20) DM (diabetes mellitus) (21) UTI (lower urinary tract infection) (22) ACS (acute coronary syndrome) (23) Postoperative pain (24) Radiculopathy of cervical spine (25) Opiate withdrawal (26) Diabetes mellitus out of control (27) Degenerative disc disease, cervical (28) Hip osteoarthritis (29) Voiding difficulty (30) Voiding difficulty (31) H/O fracture of right hip (32) Spondylosis of cervical spine (33) COVID-19 (34) cervical myalgia (35) tension headacke Diagnostic Impression COVID pneumonia and sepsis Headache likely 2/2 to above Unlikely meningitis at this point would defer LP cont atb and medical support will follow Mandeep Gracia MD Jun 24, 2020 20:24
--- NOTE | 2020-06-30 17:39 | Discharge Summary ---
Discharge Summary Discharge Summary _ Date of admission: 06/19/2020 Patient left AGAINST MEDICAL ADVICE on 06/24/[address] Sweet History of Present Illness and Brief Hospital Course Ms. Leung is a 49-year-old female with past medical history of hypertension, CAD, and asthma, who presented to the ER for evaluation of her body aches, chills, and cough. Of note she was seen here at [facility] on 06/13/2020 and was admitted for acute coronary syndrome. She was then transferred to [facility] on 06/15 for cardiac catheterization and was sent home that day. Her discharge diagnoses include chest pain, diabetes mellitus, hypertension, history of fracture of right hip, spondylosis of cervical spine, radiculopathy of cervical spine, and ACS. Shortly after her previous discharge she started developing fevers and chills and body aches. She tested positive for COVID-19 in the ER. Initial laboratory studies showed no leukocytosis, stable H&H, electrolytes and lactate within normal limits, and negative troponins. EKG showed sinus tachycardia with no acute ischemic changes. Chest x-ray showed mild opacity in the left lower lung without signs of pleural effusion or pneumothorax. Her venous duplex ultrasound of lower leg showed no evidence for DVT. Patient was given Lovenox, IV fluids, antibiotics, Tylenol/morphine in the ER and was admitted to telemetry. With COVID-19 pneumonia patient presented with fever, and tachycardia along with fatigue and myalgia. Patient is allergic to penicillin but reported having cephalosporins without any issues. Blood cultures were collected and vancomycin, cefepime, Flagyl, doxycycline, and gentle IV fluids were started. Dexamethasone and remdesivir were considered but were reserved for hypoxia. Blood cultures showed no growth after 5 days. She received empiric antibiotics for 5 days. Her oxygen saturation remained stable and was able to be weaned down to room air. She also complained of persistent headache in the ER; CT of head without contrast showed no intracranial hemorrhage, mass-effect or evidence of acute infarct. The admitting team was concerned over meningitis and a lumbar puncture was attempted. LP was attempted in the L4-L5 space, however was unsuccessful. Patient stated she is had LP in the past requiring CT guidance. She was neurologically intact at the start till the end of procedure. Patient was started on empiric treatment. Patient was also given Dilaudid IV as needed. Ag paez's headache resolved by the time of discharge without nuchal rigidity. There was low suspicion for meningitis at that point. She also complained of nausea/vomiting, likely due to COVID-19 illness. She continued to have flatus and bowel movement without diarrhea. She was given antiemetics and IV Pepcid. Patient had chest pain and found to have sinus tachycardia, likely secondary to sepsis from Covid. She was status post cardiac cath at [facility] by Dr. Price. Her troponin was negative. Her statin was continued given her hyperlipidemia. She presented with bilateral lower extremity swelling and venous duplex ultrasound was negative for DVT. She presented with right-sided goiter. She has history of thyroidectomy but was lost to follow-up. Her TSH was at target. It was felt there was no need for thyroid ultrasound as an inpatient and therefore she was recommended to follow- up as an outpatient once cleared from COVID-19 for a work-up of thyroid mass. She also had history of cervical cancer but was lost to follow-up. She was instructed to follow-up with oncology as an outpatient. Patient expressed understanding of the importance of follow-up. Patient has diabetes mellitus. She was started on long-acting insulin and was followed by endocrinology. Her blood sugar was closely monitored and hypoglycemia protocol was in place. Patient was on diabetic diet throughout her stay. For her high blood pressure she was on amlodipine and hydralazine as needed. She was restarted on lisinopril as well. For her history of asthma she was offered albuterol treatment as needed. For her history of hyperlipidemia her atorvastatin was continued. On admission day 6, patient verbalized her wish to go home. Patient was encouraged to stay for full recovery. Patient urged to go home and signed AMA form. She showed no acute distress at the time. Consultants: Infectious disease Dr. Urias Nephrology Dr. Sweet Neurology Dr. Gracia Endocrinology Dr. Pradhan Final diagnoses COVID-19 infection Headache Hyperlipidemia Diabetes mellitus Hypertension History of cervical cancer History of thyroidectomy and goiter Hypertension Dehydration Anemia History of diverticulosis Proteinuria Hip osteoarthritis Cervical myalgia Sepsis due to Covid I have been assigned to dictate discharge summary for this account. I was not involved in the patient's management Gurwinder Frederick Jun 30, 2020 17:39
== END 2020-06-24 08:51 | disposition left against medical advice (07) | DRG 720 ==
LOC: EMR 11:05 → 2E 14:00 → EDBEDREQ 17:12
PROC: 009U3ZX Drainage of Spinal Canal, Percutaneous Approach, Diagnostic (ICD-10-PCS; principal; 2020-06-19)
DX: A41.89 Other specified sepsis (principal); U07.1 COVID-19; J12.89 Other viral pneumonia; E87.1 Hypo-osmolality and hyponatremia; I10 Essential (primary) hypertension; E86.0 Dehydration; E11.65 Type 2 diabetes mellitus with hyperglycemia; E86.1 Hypovolemia; E78.5 Hyperlipidemia, unspecified; Z88.0 Allergy status to penicillin; K57.90 Diverticulosis of intestine, part unspecified, without perforation or abscess without bleeding; Z85.850 Personal history of malignant neoplasm of thyroid; Z85.41 Personal history of malignant neoplasm of cervix uteri; E87.6 Hypokalemia; M50.10 Cervical disc disorder with radiculopathy, unspecified cervical region; G89.29 Other chronic pain; E04.9 Nontoxic goiter, unspecified; R51.9 Headache, unspecified
CPT/HCPCS: 36415; 70450; 71045; 80048; 80053; 80202; 81003; 82533; 82570; 82728; 82962; 83605; 83615; 83735; 83880; 83935; 84100; 84300; 84439; 84443; 84484; 85007; 85025; 85379; 85610; 85730; 86140; 86376; 87040; 87081; 93005; 93970; 96361; 96365; 96367; 96375; 99285; J1815; J2405; J3490; J7030; J8499; S5561; U0002

== ENCOUNTER 2020-07-08 04:27 | Emergency (ER) | payer OTHER ==
[~2020-07-08] VITALS: Ht 160 cm; Wt 86.2 kg
[~2020-07-08 04:27] MED LIST changes: +NORCO 10-325 T1 EACH ORAL; -Vancomycin 1gm in D5W 275ml IVPB SCH
--- NOTE | 2020-07-08 04:43 | NUR ---
ED Nurse Note: Pt walked in from home. States Addendum: 07/08/20 at 0443 by REYES She walks with a steady gait. Her vitals are stable on RA. She states that she has has pain around her anus and vulva. she stated that this pain started around 06/25. She statess that she has tried several OTC creams and baby powder to help with the pain with no relief. the area is pale pink with some swelling.
[2020-07-08] MEDS ORDERED: Lidocaine HCl 2% Jelly 6ml Tube TOPIC ONE (05:00)
[2020-07-08] MEDS ORDERED: Vitamin A&D Oint Tube TOPIC ONE (05:00)
[2020-07-08] MEDS ORDERED: LD2JL30 TOPIC (05:06)
[2020-07-08] MEDS ORDERED: VITAMIN A TOPIC (05:06)
[2020-07-08 05:07] VITALS: BP 135/82
[2020-07-08 05:15] VITALS: BP 142/90
--- NOTE | 2020-07-08 05:16 | NUR ---
ER DISCHARGE NOTE: Patient is cleared to be discharged per ERMD, pt is aox4, on room air, with stable vital signs. pt was given dc and prescription instructions, pt was able to verbalize understanding, pt id band aremoved. pt is able to ambulate with steady gait. pt took all belongings.
--- NOTE | 2020-07-09 14:25 | Emergency Room Report ---
History of Present Illness General Chief Complaint: Vaginal Source: Patient Present Illness HPI Patient is -49-year-old female who presents for increased vaginal pain as well as rectal pain. She reports of increased discomfort for several weeks. She reports is having burning-like sensation. Pain is worse with movement. Denies having any change in her blood sugars. Denies any fever. Had recent hospitaliz ation due to coronavirus infection. Denies any vomiting or diarrhea. She states she had previously been treated for yeast infection. 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 COVID-19 Screening: Positive COVID-19 COVID-19 Testing Source: [facility] Patient History Past Medical History: see triage record Now: No Reviewed Nursing Documentation: PMH: Agreed; PSxH: Agreed Nursing Documentation-PMH Hx Cardiac Problems: Yes Hx Hypertension: Yes Hx Asthma: Yes - covid + 06/17/20 Hx Diabetes: Yes Hx Cancer: Yes Hx Gastrointestinal Problems: Yes - Gastric [id number] Hx Neurological Problems: No Review of Systems All Other Systems: negative except mentioned in HPI Physical Exam Vital Signs Date Time Temp Pulse Resp B/P (MAP) Pulse Ox O2 Delivery O2 Flow Rate FiO2 07/08/20 04:29 98.1 88 20 137/84 (101) 99 Room Air Sp02 EP Interpretation: reviewed, normal General Appearance: normal inspection, well appearing, no apparent distress, alert, GCS 15, non-toxic Head: atraumatic ENT: normal ENT inspection, hearing grossly normal, normal voice Neck: normal inspection, full range of motion, supple, no bony tend Respiratory: normal inspection, lungs clear, normal breath sounds, no respiratory distress, no retraction, no wheezing Cardiovascular #1: regular rate, rhythm, no edema Gastrointestinal: normal inspection, normal bowel sounds, non tender, soft, no guarding, no hernia Genitourinary: no CVA tenderness, other - External genitalia with hypopigmentation and some superficial excoriation. Musculoskeletal: normal inspection, back normal, normal range of motion Neurologic: alert, responsive, speech normal, normal inspection Psychiatric: normal inspection, judgement/insight normal, mood/affect normal Medical Decision Making Diagnostic Impression: Primary Impression: Vulvovaginitis ER Course Patient presented for increased genital pain. Differential diagnosis include was not limited to yeast infection, vaginitis, autoimmune disease, atrophic vaginitis among others. Patient will be discharged home. She was advised to follow-up with [employer] F[employer]OR[employer] for recheck. She given prescription for A&E ointment as well as medications for topical pain relief. She is advised to return if worse if she had any fever or any change increased redness or dark discoloration. This medical record is generated with [employer] wellness nurse software. 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 Return if worse. Luis Mcconnell MD Jul 09, 2020 14:25
== END 2020-07-08 05:16 | disposition home or self-care (01) ==
LOC: EMR 04:50
DX: N76.0 Acute vaginitis (principal); I11.9 Hypertensive heart disease without heart failure; E11.9 Type 2 diabetes mellitus without complications; Z86.16 Personal history of COVID-19; Z85.9 Personal history of malignant neoplasm, unspecified; Z88.0 Allergy status to penicillin
CPT/HCPCS: 99282